=== PATIENT | female | born 1935 | race Caucasian/White ===

== ENCOUNTER 2017-03-24 13:42 | Inpatient (IN) ==
[2017-03-24] MEDS ORDERED: DUONEB NEB STA (14:08)
[2017-03-24] MEDS ORDERED: SOLU-MEDROL 125 MG IVP STA (14:08)
[2017-03-24] MEDS ORDERED: TYLENOL PO PRN (14:36)
[2017-03-24] MEDS ORDERED: TESSALON PERLES PO PRN (14:36)
[2017-03-24] MEDS ORDERED: TUSSIONEX PO PRN (14:36)
[2017-03-24] MEDS ORDERED: MUCINEX PO PRN (14:36)
[2017-03-24] MEDS ORDERED: ANTIVERT PO PRN (14:36)
[2017-03-24] MEDS ORDERED: BENADRYL PO PRN (14:36)
[2017-03-24] MEDS ORDERED: NON-FORMULARY MEDICATION (Cholecalciferol (Vitamin D3) [Vitamin D3] 5,000 UNIT) PO SCH (14:45)
--- NOTE | 2017-03-24 14:45 | ED.PDOC ---
General ED Provider: Dr. SAVANNA CABRALES Chief Complaint: Shortness of Air Stated Complaint: short of air Time Seen by Physician: 13:49 Mode of Arrival: Ambulance Information Source: Patient, Family, Correction, EMT Exam Limitations: No limitations Primary Care Provider: PAULY HANNAH Referred to ED by: Other (NO PAIN) Nursing and Triage Documentation Reviewed and Agree: Yes Reviewed sepsis parameters & appropriate labs ordered?: Yes (PMD SEEN PT IN ED) System Inflammatory Response Syndrome: Not Applicable Sepsis Protocol: For patient's 13 years and over: Temp is 96.8 and below OR 101 and greater Pulse >90 BPM Resp >20/minute Acutely Altered Mental Status Are patient's symptoms suggestive of a new infection, such as: -Pneumonia -Skin, Soft Tissue -Endocarditis -UTI -Bone, Joint Infection -Implantable Device -Acute Abdominal Infection -Wound Infection -Meningitis -Blood Stream Catheter Infection -Unknown System Inflammatory Response Syndrome: Not Applicable Respiratory Complaint Exam - Respiratory Complaint/Exam Onset/Duration: TODAY Symptoms Are: Still present Timing: Intermittent Initial Severity: Mild Current Severity: None Location: Nose Character: Reports: Non-productive cough Aggravating: Reports: None Alleviating: Reports: None Associated Signs and Symptoms: Reports: Chills, URI, Nasal congestion History of Healthcare-Acquired Pneumonia: No Related Surgical History: Reports: None Pulmonary Embolism Risk Factors: Bedrest Cardiac Risk Factors: Reports: Diabetes, Hypertension Pseudomonas Risk Factors: Reports: None Tuberculosis Risk Factors: Reports: None Status Asthmaticus Risk Factors: Reports: None Home Oxygen Use: Yes Recent Stress Test: No Recent Echo/LV Function: No Current Antibiotic Use: No Current Asthma Medication Use: No Respiratory Distress: None Inadequate Respiratory Effort: No Dysphagia Present: No Stridor Present: No JVD Present: No Accessory Muscle Use: No Diminished Breath Sounds: Yes Sinus Tenderness: None Grunting Respirations: No Kussmaul Respirations: No Differential Diagnoses: Pneumonia, Bronchitis Non-Traumatic Chest Pain Syncope: EKG Performed Review of Systems - Review Of Systems Constitutional: Reports: Malaise Eyes: Reports: No symptoms Ears, Nose, Mouth, Throat: Reports: No symptoms Respiratory: Reports: Cough, Short of air, Wheezing Cardiac: Reports: No symptoms GI: Reports: No symptoms : Reports: No symptoms Musculoskeletal: Reports: No symptoms Skin: Reports: No symptoms Neurological: Reports: No symptoms Endocrine: Reports: No symptoms Hematologic/Lymphatic: Reports: No symptoms All Other Systems: Reviewed and Negative Past Medical History - Past Medical History Previously Healthy: Yes Endocrine: Reports: DM 2, Dyslipidemia Cardiovascular: Reports: Hypertension Respiratory: Reports: None Hematological: Reports: None Gastrointestinal: Reports: None Genitourinary: Reports: None Neuro/Psych: Reports: None Musculoskeletal: Reports: None Cancer: Reports: None Last Menstrual Period: menopause - Surgical History General Surgical History: Reports: None - Family History Family History: Reports: None - Social History Smoking Status: Never smoker Hx Substance Use: No Alcohol Screening: None Physical Exam - Physical Exam Appearance: Well-appearing, No pain distress, Well-nourished Eyes: [place], EOMI, Conjunctiva clear ENT: Ears normal, Nose normal, Oropharynx normal Respiratory: Airway patent, Breath sounds diminished, Respirations nonlabored, Rhonchi, Wheezes Cardiovascular: RRR, Pulses normal, No rub, No murmur GI/: Soft, Nontender, No masses, Bowel sounds normal, No Organomegaly Musculoskeletal: Normal strength, ROM intact, No edema, No calf tenderness Skin: Warm, Dry, Normal color Neurological: Sensation intact, Motor intact, Reflexes intact, Cranial nerves intact, Alert, Oriented Psychiatric: Affect appropriate, Mood appropriate Critical Care Note - Critical Care Note Total Time (mins): 0 Course - Course Orders, Labs, Meds: Lab Review 03/24/17 14:07 Puncture Site R rad O2 Saturation 98.0 ABG pH 7.37 ABG pCO2 59.0 H ABG pO2 106.0 H ABG HCO3 34 H ABG Total CO2 36 H ABG Base Excess 9 H Jacob Test + O2 Delivery Device Nc Oxygen Liter Flow 2.00 FiO2 % 28.0 Orders Category Date Time Status ABG DRAW REQUEST Stat CARDIO 03/24/17 14:07 Completed EKG-(ED ONLY) Stat CARDIO 03/24/17 14:07 Completed ED IV/MEDIPORT/POWERPORT .ONCE EMERGENCY 03/24/17 14:08 Active ABG Stat LAB 03/24/17 14:07 Completed BLOOD CULTURE Stat LAB 03/24/17 14:07 Ordered CBC W/ AUTO DIFF Stat LAB 03/24/17 14:25 Received COMPREHENSIVE METABOLIC PANEL Stat LAB 03/24/17 14:25 Received CREATINE KINASE Stat LAB 03/24/17 14:25 Received FLU A/B MOLECULAR Stat LAB 03/24/17 14:08 Uncollected PROCALCITONIN Stat LAB 03/24/17 14:25 Received TROPONIN I Stat LAB 03/24/17 14:25 Received 0.9 % Sodium Chloride [Saline Flush] MEDS 03/24/17 14:08 Active 1 syr IVF PRN PRN Acetaminophen [Tylenol] MEDS 03/24/17 14:36 Ordered 650 mg PO Q4HR PRN Albuterol Sulfate [Proair Hfa] MEDS 03/24/17 15:00 Ordered 2 puff IH Q6H Allopurinol [Zyloprim] MEDS 03/25/17 09:00 Ordered 100 mg PO DAILY Aspirin [Aspirin EC] MEDS 03/25/17 09:00 Ordered 81 mg PO DAILY Atorvastatin Calcium [Lipitor] MEDS 03/24/17 21:00 Ordered 20 mg PO BEDTIME Benzonatate [Tessalon Perles] MEDS 03/24/17 14:36 Ordered 100 mg PO Q8HR PRN Calcitriol [Calcitriol] MEDS 03/25/17 09:00 Ordered 0.25 mcg PO DAILY Cholecalciferol (Vitamin D3) [Vitamin D3] MEDS 03/24/17 14:45 Ordered 5,000 unit PO DIRECTED Clotrimazole/Betamethasone Dip [Lotrisone 15 gm] MEDS 03/24/17 21:00 Ordered 15 gm TP BID Desvenlafaxine Succinate [Pristiq] MEDS 03/25/17 09:00 Ordered 100 mg PO DAILY Diphenhydramine HCl [Benadryl] MEDS 03/24/17 14:36 Ordered 25 mg PO BEDTIME PRN Donepezil HCl [Aricept] MEDS 03/24/17 21:00 Ordered 10 mg PO BEDTIME Gabapentin [Gabapentin] MEDS 03/24/17 15:00 Ordered 400 mg PO TID Guaifenesin [Mucinex] MEDS 03/24/17 14:36 Ordered 600 mg PO Q12HR PRN Hydrocodone/Chlorphen Polis [Tussionex] MEDS 03/24/17 14:36 Ordered 5 ml PO Q12HR PRN Insulin Glargine,Hum.rec.anlog [Lantus Solostar] MEDS 03/25/17 09:00 Ordered 60 unit SQ DAILY Ipratropium/Albuterol Neb [Duoneb] MEDS 03/24/17 14:08 Discontinued 1 vial NEB ONCE STA Levofloxacin [Levaquin] MEDS 03/25/17 06:30 Ordered 500 mg PO QDAC Loratadine [Loratadine] MEDS 03/25/17 09:00 Ordered 10 mg PO DAILY Lorazepam [Ativan] MEDS 03/24/17 21:00 Ordered 0.5 mg PO BID Meclizine HCl [Antivert] MEDS 03/24/17 14:36 Ordered 25 mg PO Q8HR PRN Methylprednisolone Sod Succ/Pf [Solu-Medrol 125 mg] MEDS 03/24/17 14:08 Discontinued 125 mg IVP ONCE STA Metoprolol Tartrate [Lopressor] MEDS 03/24/17 21:00 Ordered 25 mg PO BID Mirtazapine [Remeron] MEDS 03/24/17 21:00 Ordered 30 mg PO BEDTIME Pantoprazole Sodium [Protonix] MEDS 03/25/17 09:00 Ordered 40 mg PO DAILY Pramipexole Di-HCl [Mirapex] MEDS 03/25/17 09:00 Ordered 1 mg PO DAILY Prednisone MEDS 03/25/17 09:00 Ordered 5 mg PO DAILY Medications Generic Name Dose Route Start Last Admin Trade Name Freq PRN Reason Stop Dose Admin Acetaminophen 650 mg 03/24/17 14:36 Tylenol PO Q4HR PRN Fever >101 Sodium Chloride 1 syr 03/24/17 14:08 Saline Flush IVF PRN PRN To flush IV Discontinued Medications Generic Name Dose Route Start Last Admin Trade Name Freq PRN Reason Stop Dose Admin Albuterol/Ipratropium 1 vial 03/24/17 14:08 03/24/17 14:36 Duoneb NEB 03/24/17 14:09 Not Given ONCE STA Methylprednisolone Sodium Succinate 125 mg 03/24/17 14:08 Solu-Medrol 125 Mg IVP 03/24/17 14:09 ONCE STA Vital Signs: Temp Pulse Resp BP Pulse Ox 03/24/17 13:47 97.6 F 73 29 H 151/66 H 95 Departure - Departure Time of Disposition: 14:47 Disposition: HOME SELF-CARE Discharge Problem: Shortness of breath Instructions: Shortness of Breath (ED), Dyspnea (ED) Condition: Good Pt referred to PMD for follow-up: Yes IPMP verified?: No Additional Instructions: Please call your Family Physician as soon as possible to schedule a follow-up appointment. Allergies/Adverse Reactions: Allergies Penicillins Adverse Reaction (Verified 03/24/17 13:59) Sulfa (Sulfonamide Antibiotics) Adverse Reaction (Verified 03/24/17 13:59) Home Medications: Ambulatory Orders Acetaminophen 650 mg PO Q4HR PRN 03/24/17 Albuterol Sulfate [Proair Hfa] 2 puff IH Q6H 03/24/17 Allopurinol 100 mg PO DAILY 03/24/17 Amlodipine Besylate 5 mg PO DAILY 03/24/17 Aspirin [Ecotrin] 81 mg PO DAILY 03/24/17 Atorvastatin Calcium [Lipitor] 20 mg PO BEDTIME 03/24/17 Benzonatate [Tessalon Perle] 100 mg PO Q8HR PRN 03/24/17 Bumetanide 1 mg PO BID 03/24/17 Calcitriol 0.25 mcg PO DAILY 03/24/17 Cholecalciferol (Vitamin D3) [Vitamin D3] 5,000 unit PO DIRECTED 03/24/17 Clotrimazole/Betamethasone Dip [Lotrisone Cream] 15 gm TP BID 03/24/17 Cyanocobalamin (Vitamin B-12) [Cyanocobalamin Injection] 1,000 mcg IJ MONTHLY Desvenlafaxine Succinate [Pristiq] 100 mg PO DAILY 03/24/17 Diphenhydramine HCl [Benadryl] 25 mg PO BEDTIME PRN 03/24/17 Donepezil HCl [Aricept] 10 mg PO BEDTIME 03/24/17 Gabapentin 400 mg PO TID 03/24/17 Guaifenesin [Mucinex] 600 mg PO Q12HR PRN 03/24/17 Hydrocodone/Chlorphen Polis [Tussionex] 5 ml PO Q12HR PRN 03/24/17 Insulin Glargine,Hum.rec.anlog [Lantus Solostar] 60 unit SQ DAILY 03/24/17 Insulin Lispro [Humalog Kwikpen] 10 unit SQ DIRECTED 03/24/17 Insulin Lispro [Humalog Kwikpen] 10 unit SQ INSULIN MORNING 03/24/17 Insulin Lispro [Humalog Kwikpen] 15 unit SQ DIRECTED 03/24/17 Ipratropium/Albuterol Neb [Duoneb] 1 vial NEB RTQ8H 03/24/17 Levofloxacin [Levaquin] 500 mg PO QDAC 03/24/17 Loratadine 10 mg PO DAILY 03/24/17 Lorazepam [Ativan] 0.5 mg PO BID 03/24/17 Meclizine HCl 25 mg PO Q8HR PRN 03/24/17 Metoprolol Tartrate 25 mg PO BID 03/24/17 Mirtazapine [Remeron] 30 mg PO BEDTIME 03/24/17 Pantoprazole Sodium [Protonix] 40 mg PO DAILY 03/24/17 Pramipexole Di-HCl [Mirapex] 1 mg PO DAILY 03/24/17 Prednisone 5 mg PO DAILY 03/24/17 Prednisone 5 mg PO TID 03/24/17 Prednisone [Deltasone] 10 mg PO DAILY 03/24/17 Tramadol HCl [Ultram] 50 mg PO Q8HR PRN 03/24/17
[2017-03-24] MEDS ORDERED: NON-FORMULARY MEDICATION (Gabapentin [Gabapentin] 400 MG) PO SCH (15:00)
--- NOTE | 2017-03-24 15:35 | CT ---
EXAM: CT of the chest without contrast History: Cough. Technique: Multiplanar CT images through the thorax were obtained without the administration of IV c ontrast Findings: Heart is enlarged. Coronary calcifications. Great vessels are unremarkable. No axillary adenopathy. No mediastinal adenopathy. Evaluation for hilar lymph nodes is limited due to lack of contrast administration but no bulky adenopathy is seen. No consolidated pneumonia. No pleural flui d and no pneumothorax. Dependent atelectasis seen at the lung bases. No suspicious lung masses or l lacy nodules. Interlobular septal thickening. Within the visualized upper abdomen, calcified granulomas within the spleen. No acute osseous abnorm alities. Degenerative changes of the thoracic spine and visualized lumbar spine. Impression: 1. Cardiomegaly with mild interstitial edema. 2. No evidence for pneumonia.
[2017-03-24] MEDS: LASIX IVP SCH (16:48)
[2017-03-24] MEDS: NEURONTIN PO SCH ×4 (16:49→20:20)
[2017-03-24] MEDS: XOPENEX 1.25 MG NEB SCH (17:05)
[2017-03-24 17:12] VITALS: BMI 44.3
[2017-03-24] MEDS ORDERED: CALMOSEPTINE OINTMENT TP ONE (17:31)
[2017-03-24] MEDS: LIPITOR PO SCH (20:19)
[2017-03-24] MEDS: ARICEPT PO SCH (20:19)
[2017-03-24] MEDS: LOPRESSOR PO SCH (20:19)
[2017-03-24] MEDS: ATIVAN PO SCH (20:19)
[2017-03-24] MEDS: REMERON PO SCH (20:20)
[2017-03-24] MEDS: LOTRISONE 15 GM TP SCH (20:23)
[2017-03-24] MEDS: HUMULIN R SUBCUT PRN (20:30)
[2017-03-25] MEDS: XOPENEX 1.25 MG NEB SCH ×5 (00:34→22:39)
[2017-03-25] MEDS: PROAIR HFA IH SCH ×5 (00:45→21:14)
[2017-03-25] MEDS: PROTONIX PO SCH (05:32)
[2017-03-25] MEDS: HUMULIN R SUBCUT PRN ×4 (05:33→21:58)
[2017-03-25] MEDS ORDERED: LEVAQUIN PO SCH ×2 (06:30→10:00)
[2017-03-25] MEDS ORDERED: LASIX IVP STA (08:07)
[2017-03-25] MEDS ORDERED: NON-FORMULARY MEDICATION (Desvenlafaxine Succinate [Pristiq] 100 MG) PO SCH (09:00)
[2017-03-25] MEDS ORDERED: NON-FORMULARY MEDICATION (Loratadine [Loratadine] 10 MG) PO SCH (09:00)
[2017-03-25] MEDS ORDERED: INSULIN GLARGINE HUM REC ANLOG 60 UNIT SQ SCH (09:00)
[2017-03-25] MEDS ORDERED: PREDNISONE PO SCH (09:00)
[2017-03-25] MEDS ORDERED: LANTUS SUBCUT SCH (09:00)
[2017-03-25] MEDS: ATIVAN PO SCH ×2 (09:17→21:15)
[2017-03-25] MEDS: ASPIRIN EC PO SCH (09:17)
[2017-03-25] MEDS: CLARITIN PO SCH (09:18)
[2017-03-25] MEDS: NON-FORMULARY MEDICATION (Calcitriol [Calcitriol] 0.25 MCG) PO SCH (09:18)
[2017-03-25] MEDS: LOPRESSOR PO SCH ×2 (09:19→21:15)
[2017-03-25] MEDS: MIRAPEX PO SCH (09:19)
[2017-03-25] MEDS: LOTRISONE 15 GM TP SCH ×2 (09:19→21:14)
[2017-03-25] MEDS: NEURONTIN PO SCH ×6 (09:20→21:15)
[2017-03-25] MEDS: PRISTIQ ER PO SCH (09:20)
[2017-03-25] MEDS: ZYLOPRIM PO SCH (09:21)
[2017-03-25] MEDS: LANTUS SUBCUT SCH (09:23)
--- NOTE | 2017-03-25 09:28 | PCM.PROG ---
Attending Provider: ATTENDING PROVIDER: Dr. PAULY HANNAH This patient is seen with Yeimi Luong, Nurse Practitioner. DATE OF SERVICE: 03/25/17 SUBJECTIVE: This 81 year old WHITE/ F was hospitalized 03/24/17. The patient is lying in bed, alert. She is still somewhat short of breath. She has been recently hospitalized at [facility] for acute respiratory failure. REVIEW OF SYSTEMS: CONSTITUTIONAL: No night sweats. No fatigue, malaise, lethargy. No fever or chills. HEENT: Eyes: No visual changes. No eye pain. No eye discharge. ENT: No runny nose. No epistaxis. No sinus pain. No odynophagia. No congestion. RESPIRATORY: No cough, no congestion. No hemoptysis. Shortness of breath. CARDIOVASCULAR: No angina symptoms. No CHF symptoms. No atypical chest pain for CAD. No palpitations. No orthopnea. Leg edema. GASTROINTESTINAL: No abdominal pain. No nausea or vomiting. No diarrhea or constipation. No hematemesis. No hematochezia. GENITOURINARY: No urgency. No frequency. No dysuria. No hematuria. No obstructive symptoms. No discharge. No pain. No significant abnormal bleeding. MUSCULOSKELETAL: No musculoskeletal pain; no joint swelling. NEUROLOGICAL: Awake, alert, oriented to time, place and person. No headache. No neck pain. No syncope. No seizures. No dizziness. PSYCHIATRIC: Not anxious. No depression. No suicidal thoughts. No homicidal thoughts. SKIN: No rash. No lesions. No wounds. ENDOCRINE: No unexplained weight loss. No weight gain. HEMATOLOGIC/LYMPHATIC: No anemia. No purpura. No petechiae. No prolonged or excessive bleeding. No palpable lymph nodes. PHYSICAL EXAMINATION: GENERAL: The patient is awake, alert and oriented, lying in bed in no distress. VITAL SIGNS: Temperature 97.0 F, Pulse 77, Respiratory Rate 26, BP 114/60, Pulse Ox 97% HEENT: Head normocephalic, atraumatic. Eyes: Extraocular muscles are intact. Pupils are equal, round and reactive to light and accommodation. Ears: No lesions. Nose appeared normal. Throat: No exudate or erythema. NECK: Supple. No JVD, no carotid bruit. No lymphadenopathy or thyromegaly. LUNGS: Diminished breath sounds. Clear to auscultation. Percussion note normal. Chest symmetrical. HEART: S1, S2, no S3. No murmurs. No cyanosis or clubbing. No ascites. Pulses: Dorsalis pedis and posterior tibial pulses +1 to +2 both sides. ABDOMEN: Soft. Non-tender. Bowel sounds active. No CVA tenderness. No mass felt. EXTREMITIES: +1 edema. Full range of motion of all extremities, equal. NEUROLOGIC: No focal deficit. Cranial nerves II through XII are grossly intact. No headache, no double vision or headache. SKIN: Not dry. Intact. Turgor-normal. LYMPHATIC: No palpable lymph nodes/no lymphedema. MUSCULOSKELETAL: Normal joints with no swelling. Muscle tone is normal. LAB REVIEW: 03/25/17 04:30 03/25/17 04:30 03/25/17 04:30: Sodium 140, Potassium 4.8, Chloride 98, Carbon Dioxide 31, Anion Gap 15.8, BUN 52 H, Creatinine 2.46 H, Estimated GFR (MDRD) 19.00, BUN/ Creatinine Ratio 21.13, Glucose 542 H* D, Calcium 8.6, Total Bilirubin < 0.3, AST 11 L, ALT 24, Alkaline Phosphatase 61, Total Protein 5.8, Albumin 2.7 L, Globulin 3.1, Albumin/Globulin Ratio 0.87 03/25/17 04:30: WBC 6.96, RBC 4.02 L, Hgb 9.7 L, Hct 31.4 L, MCV 78.1 L, MCH 24.1 L, MCHC 30.9 L, RDW Coeff of Kwabena 24.4 H, Plt Count 116 L, Immature Gran % ( Auto) 0.6, Neut % (Auto) 93.7, Lymph % (Auto) 4.6 L, Sullivan % (Auto) 1.0, Eos % ( Auto) 0.0, Baso % (Auto) 0.1, Immature Gran # (Auto) 0.0, Neut # 6.5, Lymph # 0.3 L, Sullivan # 0.1 L, Eos # 0.0, Baso # 0.0 ASSESSMENT: COPD EXACERBATION SOB LEG EDEMA CHRONIC KIDNEY DISEASE DM TYPE 2 PLAN: D/C Levaquin D/C Vitamin D Elevate legs Daily weights Solu-Medrol 125 q.12hr Lantus 70 units Extra 20 mg of IV Lasix - one time dose today Plan and coordination of the patient's care discussed in the presence of Sort Supervisor and nurse. CONDITION: Stable SCRIBED BY: MARIA ESTHER SKAGGS Compositor Apprentice scribed while in presence of service performed by Dr. Hannah/Yeimi Luong APRN on 03/25/17 ([id number])
[2017-03-25] MEDS: SOLU-MEDROL 125 MG IVP SCH ×2 (09:48→21:20)
[2017-03-25] MEDS ORDERED: VITAMIN D PO SCH (10:00)
[2017-03-25] MEDS: LASIX IVP SCH (10:51)
[2017-03-25] MEDS: CALMOSEPTINE OINTMENT TP PRN (10:51)
[2017-03-25] MEDS: REMERON PO SCH (21:15)
[2017-03-25] MEDS: LIPITOR PO SCH (21:16)
[2017-03-25] MEDS: ARICEPT PO SCH (21:16)
[2017-03-26] MEDS: PROAIR HFA IH SCH ×2 (00:21→05:44)
[2017-03-26] MEDS: XOPENEX 1.25 MG NEB SCH ×4 (05:00→22:44)
[2017-03-26] MEDS: PROTONIX PO SCH (05:44)
[2017-03-26] MEDS: HUMULIN R SUBCUT PRN ×5 (05:44→20:53)
[2017-03-26] MEDS ORDERED: HUMULIN R SUBCUT ONE (07:52)
[2017-03-26] MEDS ORDERED: BUMEX PO ONE (07:59)
[2017-03-26] MEDS: LOTRISONE 15 GM TP SCH ×2 (08:27→20:58)
[2017-03-26] MEDS: CALMOSEPTINE OINTMENT TP PRN (08:28)
[2017-03-26] MEDS: ATIVAN PO SCH ×2 (08:28→20:54)
[2017-03-26] MEDS: MIRAPEX PO SCH (08:28)
[2017-03-26] MEDS: ZYLOPRIM PO SCH (08:29)
[2017-03-26] MEDS: PRISTIQ ER PO SCH (08:29)
[2017-03-26] MEDS: CLARITIN PO SCH (08:29)
[2017-03-26] MEDS: NEURONTIN PO SCH ×6 (08:29→20:54)
[2017-03-26] MEDS: ASPIRIN EC PO SCH (08:29)
[2017-03-26] MEDS: PREDNISONE PO SCH (08:29)
[2017-03-26] MEDS: LOPRESSOR PO SCH ×2 (08:29→20:54)
[2017-03-26] MEDS: ELIQUIS PO SCH ×3 (08:30→20:54)
[2017-03-26] MEDS: LANTUS SUBCUT SCH (08:32)
[2017-03-26] MEDS: NON-FORMULARY MEDICATION (Calcitriol [Calcitriol] 0.25 MCG) PO SCH (08:45)
--- NOTE | 2017-03-26 09:55 | PCM.PROG ---
Attending Provider: ATTENDING PROVIDER: Dr. PAULY HANNAH DATE OF SERVICE: 03/26/17 SUBJECTIVE: This 81 year old WHITE/ F was hospitalized 03/24/17. The patient is hospitalized with CHF, shortness of breath and bronchitis. Hemoglobin and hematocrit are stable. Edema is better. REVIEW OF SYSTEMS: CONSTITUTIONAL: The patient looks comfortable. No night sweats. No fatigue, malaise, lethargy. No fever or chills. HEENT: Eyes: No visual changes. No eye pain. No eye discharge. ENT: No runny nose. No epistaxis. No sinus pain. No odynophagia. No congestion. RESPIRATORY: No cough, no congestion. No hemoptysis. No shortness of breath. CARDIOVASCULAR: No angina symptoms. No CHF symptoms. No atypical chest pain for CAD. No palpitations. No orthopnea.. GASTROINTESTINAL: No abdominal pain. No nausea or vomiting. No diarrhea or constipation. No hematemesis. No hematochezia. GENITOURINARY: No urgency. No frequency. No dysuria. No hematuria. No obstructive symptoms. No discharge. No pain. No significant abnormal bleeding. MUSCULOSKELETAL: No musculoskeletal pain; no joint swelling. NEUROLOGICAL: Awake, alert, oriented to time, place and person. No headache. No neck pain. No syncope. No seizures. No dizziness. PSYCHIATRIC: Not anxious. No depression. No suicidal thoughts. No homicidal thoughts. SKIN: No rash. No lesions. No wounds. ENDOCRINE: No unexplained weight loss. No weight gain. HEMATOLOGIC/LYMPHATIC: No anemia. No purpura. No petechiae. No prolonged or excessive bleeding. No palpable lymph nodes. PHYSICAL EXAMINATION: GENERAL: The patient is awake, alert and oriented, lying in bed in no distress. VITAL SIGNS: Temperature 98.3 F, Pulse 89, Respiratory Rate 24, BP 139/52, Pulse Ox 2% HEENT: Head normocephalic, atraumatic. Eyes: Extraocular muscles are intact. Pupils are equal, round and reactive to light and accommodation. Ears: No lesions. Nose appeared normal. Throat: No exudate or erythema. NECK: Supple. No JVD, no carotid bruit. No lymphadenopathy or thyromegaly. LUNGS: Decreased breath sounds with few creps. Clear to auscultation. Percussion note normal. Chest symmetrical. HEART: S1, S2, no S3. No murmurs. No cyanosis or clubbing. No ascites. Pulses: Dorsalis pedis and posterior tibial pulses +1 to +2 both sides. ABDOMEN: Soft. Non-tender. Bowel sounds active. No CVA tenderness. No mass felt. EXTREMITIES: Trace to 1+ pitting edema. Full range of motion of all extremities, equal. NEUROLOGIC: No focal deficit. Cranial nerves II through XII are grossly intact. No headache, no double vision or headache. SKIN: Warm and dry. Intact. Turgor-normal. LYMPHATIC: No palpable lymph nodes/no lymphedema. MUSCULOSKELETAL: Normal joints with no swelling. Muscle tone is normal. LAB REVIEW: 03/26/17 04:30 03/26/17 04:30 03/26/17 04:30: Sodium 138, Potassium 4.2, Chloride 94 L, Carbon Dioxide 29, Anion Gap 19.2, BUN 62 H*, Creatinine 2.23 H, Estimated GFR (MDRD) 21.00, BUN/ Creatinine Ratio 27.80, Glucose 583 H* D, Calcium 8.8, Total Bilirubin < 0.3, AST 11 L, ALT 24, Alkaline Phosphatase 60, Total Protein 5.8, Albumin 2.7 L, Globulin 3.1, Albumin/Globulin Ratio 0.87 03/26/17 04:30: WBC 11.54 H, RBC 3.94 L, Hgb 9.7 L, Hct 30.3 L, MCV 76.9 L, MCH 24.6 L, MCHC 32.0, RDW Coeff of Kwabena 24.5 H, Plt Count 124 L, Immature Gran % ( Auto) 0.6, Neut % (Auto) 94.8, Lymph % (Auto) 3.3 L, [place] % (Auto) 1.2, Eos % ( Auto) 0.0, Baso % (Auto) 0.1, Immature Gran # (Auto) 0.1, Neut # 10.9 H, Lymph # 0.4 L, [place] # 0.1 L, Eos # 0.0, Baso # 0.0 03/25/17 21:20: Glucose 735 H* D ASSESSMENT: 1. Leg edema. Edema is better. 2. Diabetes mellitus, Type 2. Blood sugar is more than 500 likely from steroid effect. Lantus dose has been increased. The patient is already on sliding scale coverage for sugar over 500. Will go up to 20 units. BUN has gone up from aggressive diuretic therapy and will back off. Will give Bumex as before. 3. COPD exacerbation 4. Chronic kidney disease PLAN: 1. Will restart Eliquis 2.5 mg p.o. b.i.d. for DVT prevention as she is an ideal setup for it and was started at one of the [facility] 2. Regular insulin 10 mg now on top of sliding scale; give 20 units if anything over 500 3. PT/OT evaluation 4. Start Bumex 1 mg b.i.d. as before. 5. D/C Solu-Medrol 6. Start Prednisone 20 mg p.o. daily Plan and coordination of the patient's care discussed in the presence of Cvor Nurse and nurse. CONDITION: Stable SCRIBED BY: MARIA ESTHER SKAGGS Vending Machine Technician scribed while in presence of service performed by Dr. PAULY HANNAH on 03/26/17 ([id number])
[2017-03-26] MEDS ORDERED: PROAIR HFA IH PRN (10:30)
--- NOTE | 2017-03-26 11:12 | PN ---
DATE OF SERVICE: 03/25/17 SUBJECTIVE: The patient was hospitalized with chronic cough and chronic bronchitis type of symptoms with history of CHF. The chest x-ray showed the early pulmonary edema type of picture. Her condition is stable. She was given Lasix 20mg. She says that she is breathing better. Her legs will be elevated and she will be given steroid dose Q 8 hours and NEBS treatments. CONDITION: Stable PLAN: 1. We will get the report of the echo, If I can remember the ejection fraction was low. The echo was done at one of the [facility] The patient was seen and examined with Nurse Practitioner. TIME SPENT: More than 30 minutes. Plan and coordination of the patient's care discussed in the presence of nurse. JOSE
--- NOTE | 2017-03-26 11:13 | RS.PTINEVL ---
Subjective - Patient information Date of Evaluation: 03/26/17 Date of Arrival on Unit: 03/24/17 Admitted From:: [facility] Diagnosis: COPD, LE edema Usual Living Arrangement: [facility] Living Arrangement Comments: prior to admit pt had been at [facility] for rehab, prior to that pt lived with dtr with ramp to enter/exit home. pt amb with rwx short distances independently Home Environment: Level/No stairs Medical History: Hypertension, COPD, Diabetes, Arthritis Medical History Comments:: kidney disease LATEX ALLERGY?: No Surgical History Comments:: ankle sx, CTR Medications: see chart Subjective Information/ Patient Comments:: pt states that she is expecting company later today. - Level of function Prior to this admission, the patient could do the following:: Partially Dependent Ambulation Current Level of Function: Partially Dependent Current Equipment Used at Home: oxygen at 2L [place], walker, wheelchair, shower chair, hospital bed, glucometer Interventions - Objective Patient Orientation: Person, Place, Situation Current Interventions: IV's, Oxygen, Telemetry Range of Motion - ROM Left Upper Extremity AROM: WFL's Right Lower Extremity AROM: WFL's Left Lower Extremity AROM: WFL's Muscle Strength - Muscle Strength Right Upper Extremity Strength: Mild Weakness (shld flex 4-/5, elbow flex/ext 4/ 5) Left Upper Extremity Strength: Mild Weakness (shld flex 4-/5, elbow flex/ext 4/5 ) Right Lower Extremity Strength: Mild Weakness (hip flex 3+/5, knee flex/ext 4-/5 , ankle Df/PF 4-/5) Left Lower Extremity Strength: Mild Weakness (hip flex 3+/5, knee flex/ext 4-/5 , ankle Df/PF 4-/5) Sensation - Sensation Right Upper Extremity Sensation: Intact/Normal Left Upper Extremity Sensation: Intact/Normal Right Lower Extremity Sensation: Impaired Left Lower Extremity Sensation: Impaired Comments: n/t BLE Palpation Palpation Findings: None/Normal Balance - Sitting Balance and Reactions Static Sitting Balance: Fair Dynamic Sitting Balance: Fair Sitting Equilibrium Reactions: Delayed Left, Delayed Right Sitting Protective Reactions: Delayed Left, Delayed Right - Standing Balance and Reactions Static Standing Balance: Poor Dynamic Standing Balance: Poor Standing Equilibrium Reactions: Delayed Left, Delayed Right Standing Protective Reactions: Delayed Left, Delayed Right - Comments Balance Assessment Comments: pt with increased lat sway Functional Mobility - Bed Mobility Rolling R/L: Min Assist Sit to Supine: Min Assist - Transfers Sit to Stand: Min Assist Stand to Sit: Min Assist - Safety Awareness Safety Awareness: Poor Ambulation - Ambulation Assistive Device Used: Rolling Walker Orthotic/Prosthetic Device: No Distance: 50ft +70ft Assistance needed with Ambulation: CGA, Min Assist, 1 person assist Quality of Ambulation: pt amb with CGA to min x 1 +1 to bring chair and O2 tank behind patient Gait Deviations: Forward posture, Short stride, Deviates from path Ambulation Comments: pt amb with decreased step length, flexed posture, pt does not follow commands for safety to push up from chair, or wait to stand until chair locked Factors Affecting Ambulation: Decreased Balance, Breathing/O2 Saturation, Decreased Safety, Cognitive Status, Limited Endurance Treatment time - Time with patient Total treatment time: 27 Patient Education - Education Patient Education: Home Exercise Program, Education of Plan of Care Teaching Recipient: Patient Teaching Methods: Discussion Comments: Discussion with patient regarding POC as well as safety with gait Assessment - Assessment Problem List:: Decreased level of function, Requires training/education, Decreased safety/Risk of falls, Weakness Rehab Potential: Good Further Therapy Indicated?: Yes Evaluation Complexity: HISTORY: Medium (COPD, DM, kidney dz), EXAM OF BODY SYSTEMS: Medium (musc, neuomus, resp), CLINICAL PRESENTATION: Medium (evolving) , CLINICAL DECISION MAKING: Medium Short Term Goals GOAL #1: pt demonstrate independence with bed mobility Goal to be met by: 03/28/17 GOAL #2: Transfer sup to/from sit to/from stand CGA Goal to be met by: 03/28/17 GOAL #3: pt amb with rwx 100ft with no LOB and no rest periods Goal to be met by: 03/28/17 Penitentiary Goals GOAL #1: pt transfer sup to/from sit to/from stand SBA Goal to be met by: 04/01/17 GOAL #2: pt amb 150ft with rwx with no LOB with no rest periods Goal to be met by: 04/01/17 GOAL #3: Improved BLE strength 4 to 4+/5 and independent with HEP Goal to be met by: 04/01/17 Plan Plan of Care: Therapeutic EX, Therapeutic Activity Other:: gait training Frequency of Treatment: 1-2 X day, as tolerated Duration of Treatment: 6 days Anticipated Discharge Destination: Home Has the Physician been added for Co-signature?: Yes
--- NOTE | 2017-03-26 16:16 | RS.OTINEVL ---
Subjective - Patient information Date of Evaluation: 03/26/17 Date of Arrival on Unit: 03/24/17 Admitted From:: Alf Usual Living Arrangement: [facility] Living Arrangement Comments: prior to admit pt had been at [facility] for rehab, prior to that pt lived with dtr with ramp to enter/exit home. pt amb with rwx short distances independently Home Environment: Level/No stairs Medical History: Hypertension, COPD, Diabetes, Arthritis Medical History Comments:: kidney disease, LATEX ALLERGY?: No Surgical History Comments:: ankle sx, CTR Medications: see chart Subjective Information/ Patient Comments:: "My back hurts across there." - Level of function Prior to this admission, the patient could do the following:: Partially Dependent Ambulation Abilities prior to this admission: She was receiving therapy at [facility] and then got sick and had to come to the hospital. Before the [facility], she was living at home with her daughter. She is maximum assistance for LE dressing, and SBA for shower with a bench. Current Level of Function: Partially Dependent Current Equipment Used at Home: oxygen at 2L N[place], walker, wheelchair, shower chair, hospital bed, glucometer Pain Assessment - Pain Pain Score: 2 Pain Location Body Site: Back Pain Aggravating Factors: ADL's, Standing, Walking Pain Alleviating Factors: Medication, Sitting, Lying Supine Interventions - Objective Patient Orientation: Person, Place, Situation Current Interventions: IV's, Oxygen, Telemetry Observation: Pt is not as SOA today. SOA with activity today. Interventions - ROM Right Upper Extremity AROM: Slight limitation Left Upper Extremity AROM: Slight limitation - Strength Right Upper Extremity Strength: Mild Weakness Left Upper Extremity Strength: Mild Weakness - Sensation Right Upper Extremity Sensation: Intact/Normal Left Upper Extremity Sensation: Intact/Normal Balance - Sitting Balance Static Sitting Balance: Good Dynamic Sitting Balance: Good - Standing Balance Static Standing Balance: Fair Dynamic Standing Balance: Fair ADL Skills - Self Feeding Self Feeding: Independent - Grooming Grooming: CGA - Bathing Bathing UE: CGA Bathing LE: Max Assist - Dressing Dressing UE: Min Assist Dressing LE: Max Assist - Toilet Management Toileting Management: CGA Functional Mobility - Bed Mobility Rolling R/L: CGA Scooting: CGA Supine to Sit: CGA Sit to Supine: Min Assist - Transfers Sit to Stand: CGA Stand to Sit: Min Assist Stand Pivot Transfers: Min Assist Comments:: Pt requires verbal cues to keep her RW close to her. - Safety Awareness Safety Awareness: Good Additional Treatment Performed - Additional units charged ADL: 15 - Time with patient Total treatment time: 45 Activities Patient Interests:: Watching Television, Puzzles/Games, Visiting/Socializing Patient Education Patient Education: Education of diagnosis, Home Safety, Education of Plan of Care Teaching Recipient: Patient Teaching Methods: Discussion Assessment Problem List:: Decreased level of function, Requires training/education, Decreased safety/Risk of falls, Weakness Rehab Potential: Good Further Therapy Indicated?: Yes Evaluation Complexity: HISTORY: Medium, EXAM OF BODY SYSTEMS: Medium, CLINICAL DECISION MAKING: Medium Short Term Goals - Goals GOAL 1: Pt to tolerate 10 minutes of standing activity, rest PRN. Goal to be met by: 04/02/17 GOAL 2: Pt to complete sink level ADLS SBA. Goal to be met by: 04/02/17 GOAL 3: Pt to increase strength to 4+/5 Goal to be met by: 04/02/17 Valve Machine Operator Goals GOAL 1: Pt to tolerate 15 minutes of standing activity, rest PRN. Goal to be met by: 04/07/17 GOAL 2: Pt to complete sink level ADLS Mod-I. Goal to be met by: 04/07/17 GOAL 3: Pt to increase strength to 4+/5 Goal to be met by: 04/07/17 Plan Plan of Care: Therapeutic EX, Neuromuscular Re-Educ, Therapeutic Activity, Self- Care/Home Management Frequency of Treatment: 1-2 X day, as tolerated Duration of Treatment: 2 Weeks Anticipated [facility]charge Destination[facility] Has the Physician been added for Co-signature?: Yes
[2017-03-26] MEDS: BUMEX PO SCH (16:20)
[2017-03-26] MEDS: LIPITOR PO SCH (20:54)
[2017-03-26] MEDS: REMERON PO SCH (20:54)
[2017-03-26] MEDS: ARICEPT PO SCH (20:54)
[2017-03-27] MEDS: BUMEX PO SCH ×2 (05:37→16:39)
[2017-03-27] MEDS: PROTONIX PO SCH (05:38)
[2017-03-27] MEDS: XOPENEX 1.25 MG NEB SCH ×4 (05:48→23:10)
[2017-03-27] MEDS: HUMULIN R SUBCUT PRN ×4 (05:49→20:36)
[2017-03-27] MEDS: ATIVAN PO SCH ×2 (08:36→20:29)
[2017-03-27] MEDS: ASPIRIN EC PO SCH (08:36)
[2017-03-27] MEDS: NON-FORMULARY MEDICATION (Calcitriol [Calcitriol] 0.25 MCG) PO SCH (08:37)
[2017-03-27] MEDS: CLARITIN PO SCH (08:37)
[2017-03-27] MEDS: PRISTIQ ER PO SCH (08:37)
[2017-03-27] MEDS: PREDNISONE PO SCH (08:38)
[2017-03-27] MEDS: ELIQUIS PO SCH ×2 (08:39→20:28)
[2017-03-27] MEDS: MIRAPEX PO SCH (08:42)
[2017-03-27] MEDS: LOPRESSOR PO SCH ×2 (08:42→20:27)
[2017-03-27] MEDS: LOTRISONE 15 GM TP SCH ×2 (08:42→20:31)
[2017-03-27] MEDS: ZYLOPRIM PO SCH (08:43)
[2017-03-27] MEDS: NEURONTIN PO SCH ×6 (08:43→20:30)
[2017-03-27] MEDS: LANTUS SUBCUT SCH (08:44)
[2017-03-27] MEDS: REMERON PO SCH (20:27)
[2017-03-27] MEDS: LIPITOR PO SCH (20:29)
[2017-03-27] MEDS: ARICEPT PO SCH (20:30)
[2017-03-27] MEDS: CALMOSEPTINE OINTMENT TP PRN (20:43)
[2017-03-28] MEDS: PROTONIX PO SCH (05:59)
[2017-03-28] MEDS: BUMEX PO SCH ×2 (05:59→17:13)
[2017-03-28] MEDS: XOPENEX 1.25 MG NEB SCH ×4 (06:00→23:40)
[2017-03-28] MEDS: HUMULIN R SUBCUT PRN ×4 (06:03→20:20)
[2017-03-28] MEDS: LANTUS SUBCUT SCH (08:05)
[2017-03-28] MEDS: ELIQUIS PO SCH ×2 (08:07→20:17)
[2017-03-28] MEDS: ASPIRIN EC PO SCH (08:08)
[2017-03-28] MEDS: ATIVAN PO SCH ×2 (08:08→20:18)
[2017-03-28] MEDS: ZYLOPRIM PO SCH (08:08)
[2017-03-28] MEDS: PRISTIQ ER PO SCH (08:08)
[2017-03-28] MEDS: MIRAPEX PO SCH (08:08)
[2017-03-28] MEDS: LOPRESSOR PO SCH ×2 (08:09→20:18)
[2017-03-28] MEDS: CLARITIN PO SCH (08:09)
[2017-03-28] MEDS: PREDNISONE PO SCH (08:09)
[2017-03-28] MEDS: NEURONTIN PO SCH ×6 (08:09→20:18)
[2017-03-28] MEDS: NON-FORMULARY MEDICATION (Calcitriol [Calcitriol] 0.25 MCG) PO SCH (08:10)
[2017-03-28] MEDS: LOTRISONE 15 GM TP SCH ×2 (08:10→20:35)
[2017-03-28] MEDS ORDERED: LANOXIN IVP STA ×2 (19:18)
[2017-03-28] MEDS ORDERED: CARDIZEM PO ONE (19:19)
[2017-03-28] MEDS ORDERED: CARDIZEM ONE (20:09)
[2017-03-28] MEDS: LIPITOR PO SCH (20:17)
[2017-03-28] MEDS: REMERON PO SCH (20:18)
[2017-03-28] MEDS: ARICEPT PO SCH (20:20)
[2017-03-29] MEDS: XOPENEX 1.25 MG NEB SCH ×2 (05:31→11:07)
[2017-03-29] MEDS: PROTONIX PO SCH (06:02)
[2017-03-29] MEDS: BUMEX PO SCH (06:02)
[2017-03-29] MEDS: HUMULIN R SUBCUT PRN ×2 (06:15→12:11)
--- NOTE | 2017-03-29 08:54 | PCM.PROG ---
Attending Provider: ATTENDING PROVIDER: Dr. PAULY HANNAH This patient is seen with Yeimi Luong, Nurse Practitioner. DATE OF SERVICE: 03/29/17 SUBJECTIVE: This 81 year old WHITE/ F was hospitalized 03/24/17. The patient is lying in bed, alert. Shortness of breath improved. She had an episode of leg weakness this morning. Kidney function is stable. She had an episode of atrial fibrillation last night, rate is now controlled. REVIEW OF SYSTEMS: CONSTITUTIONAL: Weakness. No night sweats. No fatigue, malaise, lethargy. No fever or chills. HEENT: Eyes: No visual changes. No eye pain. Yellow drainage bilaterally. ENT : No runny nose. No epistaxis. No sinus pain. No odynophagia. No congestion. RESPIRATORY: No cough, no congestion. No hemoptysis. Positive for shortness of breath. CARDIOVASCULAR: No angina symptoms. No CHF symptoms. No atypical chest pain for CAD. No palpitations. No orthopnea.. GASTROINTESTINAL: No abdominal pain. No nausea or vomiting. No diarrhea or constipation. No hematemesis. No hematochezia. GENITOURINARY: No urgency. No frequency. No dysuria. No hematuria. No obstructive symptoms. No discharge. No pain. No significant abnormal bleeding. MUSCULOSKELETAL: Leg weakness. NEUROLOGICAL: Awake, alert, oriented to time, place and person. No headache. No neck pain. No syncope. No seizures. No dizziness. PSYCHIATRIC: Not anxious. No depression. No suicidal thoughts. No homicidal thoughts. SKIN: No rash. No lesions. No wounds. ENDOCRINE: No unexplained weight loss. No weight gain. HEMATOLOGIC/LYMPHATIC: No anemia. No purpura. No petechiae. No prolonged or excessive bleeding. No palpable lymph nodes. PHYSICAL EXAMINATION: GENERAL: The patient is awake, alert and oriented, lying in bed in no distress. VITAL SIGNS: Temperature 97.5 F, Pulse 84, Respiratory Rate 20, BP 138/73, Pulse Ox 94% HEENT: Head normocephalic, atraumatic. Eyes: Extraocular muscles are intact. Pupils are equal, round and reactive to light and accommodation. Ears: No lesions. Nose appeared normal. Throat: No exudate or erythema. NECK: Supple. No JVD, no carotid bruit. No lymphadenopathy or thyromegaly. LUNGS: Diminished breath sounds bilaterally. Clear to auscultation. Percussion note normal. Chest symmetrical. HEART: Irregular heart rate. S1, S2, no S3. No murmurs. No cyanosis or clubbing. No ascites. Pulses: Dorsalis pedis and posterior tibial pulses +1 to +2 both sides. ABDOMEN: Soft. Non-tender. Bowel sounds active. No CVA tenderness. No mass felt. EXTREMITIES: Trace leg edema. Full range of motion of all extremities, equal. NEUROLOGIC: No focal deficit. Cranial nerves II through XII are grossly intact. No headache, no double vision or headache. SKIN: Not dry. Intact. Turgor-normal. LYMPHATIC: No palpable lymph nodes/no lymphedema. MUSCULOSKELETAL: Normal joints with no swelling. Muscle tone is normal. LAB REVIEW: 03/29/17 05:11 03/29/17 05:11 03/29/17 05:11: Sodium 145, Potassium 4.0, Chloride 97 L, Carbon Dioxide 36 H, Anion Gap 16.0, BUN 72 H*, Creatinine 2.28 H, Estimated GFR (MDRD) 20.00, BUN/ Creatinine Ratio 31.57, Glucose 223 H, Calcium 9.0, Total Bilirubin 0.3, AST 11 L, ALT 20, Alkaline Phosphatase 57, Total Protein 5.6 L, Albumin 2.7 L, Globulin 2.9, Albumin/Globulin Ratio 0.93 03/29/17 05:11: WBC 5.84, RBC 4.21, Hgb 10.6 L, Hct 33.1 L, MCV 78.6 L, MCH 25.2 L, MCHC 32.0, RDW Coeff of Kwabena 25.7 H, Plt Count 124 L, Immature Gran % ( Auto) 1.2, Neut % (Auto) 72.5, Lymph % (Auto) 16.3, [place] % (Auto) 6.5, Eos % ( Auto) 3.3, Baso % (Auto) 0.2, Immature Gran # (Auto) 0.1, Neut # 4.2, Lymph # 1.0, [place] # 0.4, Eos # 0.2, Baso # 0.0 ASSESSMENT: 1. COPD EXACERBATION 2. SOB, IMPROVED 3. LEG EDEMA 4. CHRONIC KIDNEY DISEASE 5. DM TYPE 2 PLAN: 1. Tobramycin two drops each eye t.i.d. 2. Repeat chest x-ray 3. Elevate legs 4. Cardizem 60 mg b.i.d. 5. Discharge patient back to intermediate Plan and coordination of the patient's care discussed in the presence of Airfield Services Officer and nurse. CONDITION: Stable SCRIBED BY: MARIA ESTHER SKAGGS Flaker Tender scribed while in presence of service performed by Dr. Hannah/Yeimi Luong APRN on 03/29/17 ([id number])
[2017-03-29] MEDS: TOBREX 0.3% OP SCH ×2 (09:11→14:57)
[2017-03-29] MEDS: PRISTIQ ER PO SCH (09:11)
[2017-03-29] MEDS: MIRAPEX PO SCH (09:11)
[2017-03-29] MEDS: PREDNISONE PO SCH (09:12)
[2017-03-29] MEDS: ATIVAN PO SCH (09:12)
[2017-03-29] MEDS: ZYLOPRIM PO SCH (09:12)
[2017-03-29] MEDS: ASPIRIN EC PO SCH (09:12)
[2017-03-29] MEDS: CLARITIN PO SCH (09:12)
[2017-03-29] MEDS: LOPRESSOR PO SCH (09:12)
[2017-03-29] MEDS: NEURONTIN PO SCH ×4 (09:12→14:58)
[2017-03-29] MEDS: LANTUS SUBCUT SCH (09:13)
[2017-03-29] MEDS: NON-FORMULARY MEDICATION (Calcitriol [Calcitriol] 0.25 MCG) PO SCH (09:13)
[2017-03-29] MEDS: ELIQUIS PO SCH (09:13)
[2017-03-29] MEDS: LOTRISONE 15 GM TP SCH (09:14)
--- NOTE | 2017-03-29 11:51 | DI ---
EXAM: Single view of the chest. History: Short of breath Comparison: Chest CT 03/24/2017 Findings: Heart remains enlarged. No definite acute infiltrates. No appreciable pleural fluid and no pneumothorax. No acute osseous abnormalities. Impression: Cardiomegaly without overt pulmonary edema.
--- NOTE | 2017-03-29 14:41 | CM.DICTOOL ---
ADMISSION: 03/24/17 15:48 DISCHARGE: 03/29/17 FINAL DIAGNOSIS COPD EXACERBATION CHF LEG EDEMA CAD HYPERTENSION DM, TYPE 2 DYSLIPIDEMIA CHRONIC RENAL DISEASE ARTHRITIS DEPRESSION ANKLE SURGERY CARPAL TUNNEL REPAIR NEVER SMOKER LAST VITALS Temp Pulse Resp BP Pulse Ox 97 F L 104 H 24 121/63 93 L 03/29/17 10:00 03/29/17 10:00 03/29/17 10:00 03/29/17 10:00 03/29/17 10:00 ACTIVE HOME MEDICATIONS Acetaminophen (Tylenol) 650 mg PO Q4HR PRN PRN Reason: Fever >101 Albuterol Sulfate (Proair Hfa) 2 puff IH Q6HR PRN PRN Reason: Wheezing Allopurinol (Zyloprim) 100 mg PO DAILY [facility] Last Admin: 03/29/17 09:12 Dose: 100 mg Apixaban (Eliquis) 2.5 mg PO BID [facility] Last Admin: 03/29/17 09:13 Dose: 2.5 mg Aspirin (Aspirin Ec) 81 mg PO DAILYWM [facility] Last Admin: 03/29/17 09:12 Dose: 81 mg Atorvastatin Calcium (Lipitor) 20 mg PO BEDTIME [facility] Last Admin: 03/28/17 20:17 Dose: 20 mg Benzonatate (Tessalon Perles) 100 mg PO Q8HR PRN PRN Reason: Cough Bumetanide (Bumex) 1 mg PO BIDAC [facility] Last Admin: 03/29/17 06:02 Dose: 1 mg Calamine/Phenol (Calmoseptine Ointment) 1 applic TP PRN PRN PRN Reason: redness Last Admin: 03/27/17 20:43 Dose: 1 applic Chlorphenir/Hydrocodone Polistirex (Tussionex) 5 ml PO Q12HR PRN PRN Reason: Cough Clotrimazole (Lotrisone 15 Gm) 1 applic TP BID [facility] Last Admin: 03/29/17 09:14 Dose: 1 applic Diphenhydramine HCl (Benadryl) 25 mg PO BEDTIME PRN PRN Reason: sleep Last Admin: 03/24/17 20:20 Dose: 25 mg Donepezil HCl (Aricept) 10 mg PO BEDTIME [facility] Last Admin: 03/28/17 20:20 Dose: 10 mg Gabapentin (Neurontin) 100 mg PO TID [facility] Last Admin: 03/29/17 09:12 Dose: 100 mg Gabapentin (Neurontin) 300 mg PO TID [facility] Last Admin: 03/29/17 09:12 Dose: 300 mg Guaifenesin (Mucinex) 600 mg PO Q12HR PRN PRN Reason: Cough Insulin Glargine (Lantus) 70 unit SUBCUT DAILY [facility] Last Admin: 03/29/17 09:13 Dose: 70 unit Insulin Human Regular (Humulin R) 0 - 20 unit SUBCUT PRN PRN; Protocol PRN Reason: Hyperglycemica Last Admin: 03/29/17 12:11 Dose: 8 unit Iprotropium/Albuterol Neb (Duoneb) 1 vial NEB RTQ8H [facility] Last Admin: 03/24/17 11:07 Dose: 1 vial Loratadine (Claritin) 10 mg PO DAILY [facility] Last Admin: 03/29/17 09:12 Dose: 10 mg Lorazepam (Ativan) 0.5 mg PO BID [facility] Last Admin: 03/29/17 09:12 Dose: 0.5 mg Meclizine HCl (Antivert) 25 mg PO Q8HR PRN PRN Reason: Dizziness Metoprolol Tartrate (Lopressor) 25 mg PO BID [facility] Last Admin: 03/29/17 09:12 Dose: 25 mg Mirtazapine (Remeron) 30 mg PO BEDTIME [facility] Last Admin: 03/28/17 20:18 Dose: 30 mg Non-Formulary Medication (Calcitriol [Calcitriol]) 0.25 mcg PO DAILY [facility] Last Admin: 03/29/17 09:13 Cholecalciferol (Vitamin D3 5,000 unit po as directed Pantoprazole Sodium (Protonix) 40 mg PO QDAC [facility] Last Admin: 03/29/17 06:02 Dose: 40 mg Pramipexole Dihydrochloride (Mirapex) 1 mg PO DAILY [facility] Last Admin: 03/29/17 09:11 Dose: 1 mg Desvenlafaxine Succinate (Pristiq) 100mg po Daily Tramadol HCL (Ultram) 50mg PO Q8HR PRN ALLERGIES Penicillins Adverse Reaction (Verified 03/24/17 13:59) Sulfa (Sulfonamide Antibiotics) Adverse Reaction (Verified 03/24/17 13:59) SMOKING: N/A DISEASE SPECIFIC EDUCATION: MEDICATIONS DIET ACTIVITY LEGS ELEVATED LAB REVIEW: 03/29/17 05:11 03/29/17 05:11 03/29/17 05:11: Sodium 145, Potassium 4.0, Chloride 97 L, Carbon Dioxide 36 H, Anion Gap 16.0, BUN 72 H*, Creatinine 2.28 H, Estimated GFR (MDRD) 20.00, BUN/ Creatinine Ratio 31.57, Glucose 223 H, Calcium 9.0, Total Bilirubin 0.3, AST 11 L, ALT 20, Alkaline Phosphatase 57, Total Protein 5.6 L, Albumin 2.7 L, Globulin 2.9, Albumin/Globulin Ratio 0.93 03/29/17 05:11: WBC 5.84, RBC 4.21, Hgb 10.6 L, Hct 33.1 L, MCV 78.6 L, MCH 25.2 L, MCHC 32.0, RDW Coeff of Kwabena 25.7 H, Plt Count 124 L, Immature Gran % ( Auto) 1.2, Neut % (Auto) 72.5, Lymph % (Auto) 16.3, [place] % (Auto) 6.5, Eos % ( Auto) 3.3, Baso % (Auto) 0.2, Immature Gran # (Auto) 0.1, Neut # 4.2, Lymph # 1.0, [place] # 0.4, Eos # 0.2, Baso # 0.0 PLAN: [facility]URN [facility] CONTINUE HOME MEDICATIONS PER NURSING SHEET EXCEPT: 1. DISCONTINUE NORVASC 2. DISCONTINUE HUMALOG KWIKPEN 3. DISCONTINUE LEVAQUIN 4. DISCONTINUE PREDNISONE - FOLLOW NEW ORDERS FOR PREDNISONE NEW MEDICATIONS: 1. CARDIZEM 60MG TAKE 1 TABLET 2 TIMES A DAY. 2. PREDNISONE 20MG TAKE 1 TABLET BY MOUTH DAILY FOR 5 DAYS THEN 10MG DAILY FOR 5 DAYS THEN DISCONTINUE. 3. ELIQUIS 2.5MG TAKE 1 TABLET 2 TIMES A DAY 4. HUMULIN R INSULIN PER DR. HANNAH'S SSI TID 5. TOBRAMYCIN DROPS 2 DROPS TO BOTH EYES TID PT/OT TO EVALUATE AND TREAT DIET CONSISTENT CARB, REGULAR TEXTURE AND REGULAR LIQUIDS. ACTIVITY PER PT/OT; USE PRECAUTION IS AT RISK FOR FALLS; CBC AND CMP IN 1 WEEK THEN EVERY 3 MONTHS. LIPIDS, TSH, T4 AND HGBA1C EVERY 6 MONTHS. PATIENT IS A FULL CODE SITTING UP IN BED. ALERT AND ORIENTED X 4. VOICE IS COARSE. Franc BRAUN HEALTH ASSOCIATE INTO SEE PATIENT. PATIENT C/O SWELLING INSIDE EARS. Franc BRAUN EXAMINED INSIDE EARS AND STATES NO SWELLING NOTED. PLAN OF CARE DISCUSSED PER Franc BRAUN APRN. PATIENT VERBALIZES UNDERSTANDING AND AGREEMENT. APPETITE IS GOOD. Franc BRAUN DISCUSSED PATIENT STATUS WITH DR. HANNAH WITH POSSIBLE PLANS TO DISCHARGE BACK TO [facility] IF CHEST X-RAY IMPROVED. ALSO DISCUSSED EYES PUFFY WITH SLIGHT DRAINAGE NOTED AND ORDER FOR TOBRAMYCIN. DR. HANNAH IN AGREEMENT. VITAL SIGNS ARE STABLE. HEART RATE TACHY AT TIMES. IS AFEBRILE. POX 94% ON O2 AT 2L/C. HEART TONES ARE IRREGULAR WITH TELEMETRY REVEALING A-FIB WITH RVR. NO C/O CHEST PAIN OR DISCOMFORT. LUNGS WITH WHEEZING WHICH HAS IMPROVED. BREATH SOUNDS ARE DIMINISHED. HAS OCC. PRODUCTIVE COUGH. UNSURE OF COLOR OF SPUTUM. IS UNABLE TO LIE FLAT DUE TO DYSPNEA. HAS DYSPNEA WITH ACTIVITY AND AT TIMES AT REST. ABDOMEN IS SOFT, NON-TENDER WITH BOWEL SOUNDS POSITIVE IN ALL 4 QUADS. LAST BM . PEDAL PULSES POSITIVE WITH 1+ PITTING EDEMA. IS A FALL RISK WITH FALL PRECAUTIONS IN USE. IS 1 PERSON ASSIST WITH USE OF ROLLING WALKER. THIS AM NURSE AMBULATING PATIENT TO BATHROOM WHEN PATIENT'S LEGS "GAVE AWAY". NURSE ASSISTED PATIENT TO FLOOR. NO INJURIES NOTED. NO ACUTE DISTRESS NOTED. DR. PAULY HANNAH MD Franc BRAUN APRN
[2017-03-29 15:11] VITALS: BP 140/76; TEMP 97.5
--- NOTE | 2017-03-29 16:18 | RS.OTQKDC ---
OT Discharge Date of Discharge: 03/29/17 Number of Visits: 2 Reason for Discharge: Pt discharged to [facility] facility for rehab.
--- NOTE | 2017-03-30 10:35 | PN ---
DATE OF SERVICE: 03/27/17 SUBJECTIVE: 81-year-old white female hospitalized with shortness of breath, COPD, and leg edema. The patient had evidence of CHF. At the present time, the patient seems to be feeling better. She says she is feeling better. No orthopnea, no PND. REVIEW OF SYSTEMS: CONSTITUTIONAL: No night sweats. No fatigue, malaise, lethargy. No fever or chills. HEENT: Eyes: No visual changes. No eye pain. No eye discharge. ENT: No runny nose. No epistaxis. No sinus pain. No sore throat. No odynophagia. No congestion. RESPIRATORY: No cough, no congestion. No hemoptysis. Less shortness of breath at rest. CARDIOVASCULAR: No angina symptoms. No CHF symptoms. No atypical chest pain for CAD. No palpitations. No orthopnea. GASTROINTESTINAL: Appetite improving. No abdominal pain. No nausea or vomiting. No diarrhea or constipation. No hematemesis. No hematochezia. GENITOURINARY: No urgency. No frequency. No dysuria. No hematuria. No obstructive symptoms. No discharge. No pain. No significant abnormal bleeding. MUSCULOSKELETAL: No musculoskeletal pain; no joint swelling. NEUROLOGICAL: No headache. No neck pain. No syncope. No seizures. No dizziness. PSYCHIATRIC: Not anxious. No depression. No suicidal thoughts. No homicidal thoughts. SKIN: No rash. No lesions. No wounds. ENDOCRINE: No unexplained weight loss. No weight gain. HEMATOLOGIC/LYMPHATIC: No anemia. No purpura. No petechiae. No prolonged or excessive bleeding. No palpable lymph nodes. PHYSICAL EXAMINATION: GENERAL: The patient is oriented to time, place and person. VITAL SIGNS: Temperature 97, pulse 110, respiratory rate 22, BP 124/68, pulse ox 93%. HEENT: Head normocephalic, atraumatic. Eyes: Extraocular muscles are intact. Pupils are equal, round and reactive to light and accommodation. Ears: No lesions. Nose appeared normal. Throat: No exudate or erythema. NECK: Supple. No JVD, no carotid bruit. No lymphadenopathy or thyromegaly. LUNGS: Decreased breath sounds but clear to auscultation. Percussion note normal. Chest symmetrical. HEART: S1, S2, no S3. No murmurs. No cyanosis or clubbing. No ascites. Pulses: Dorsalis pedis and posterior tibial pulses +1 to +2 both sides. ABDOMEN: Soft. Nontender. Bowel sounds active. No CVA tenderness. No mass felt. EXTREMITIES: No edema. Full range of motion of all extremities, equal. NEUROLOGIC: No focal deficit. Cranial nerves II through XII are grossly intact. No headache, no double vision or headache. SKIN: Not dry. Intact. Turgor - normal. LYMPHATIC: No palpable lymph nodes/no lymphedema. MUSCULOSKELETAL: Normal joints with no swelling. Muscle tone is normal. The patient has atrial fib now with rate of 210/min. She is already on Eliquis. LABS: Not done today, will do tomorrow. Kidney function needs to be monitored. Blood sugar is also running somewhat high. The patient has been off IV Solu-Cortef, now on p.o. Prednisone. ASSESSMENT: 1. CHF seems to be under control, Stage III to IV. 2. Leg edema, +1 now, somewhat less than before. 3. Renal azotemia, is a combination of CHF with aggressive diuretic therapy. 4. Diabetes mellitus seems to be out of control from steroid therapy. The patient is already on regular insulin that she takes, Lantus 70 units in the evening along with sliding scale with coverage. PLAN: 1. Daily CBC, CMP 2. Elevate the legs Condition is improving. The patient is able to walk and walks to the bathroom. TIME SPENT: More than 30 minutes. Plan and coordination of the patient's care discussed in the presence of nurse. JOSE
--- NOTE | 2017-03-30 10:44 | OP ---
DATE OF SERVICE: 03/28/17 SUBJECTIVE: This 81-year-old white female hospitalized with CHF, COPD, acute asthmatic bronchitis. The patient's condition has improved. She is sitting up in the chair very comfortable. According to her, her breathing is much better. She is walking with a walker, still gets short of breath on minimal exertion. REVIEW OF SYSTEMS: CONSTITUTIONAL: No night sweats. No fatigue, malaise, lethargy. No fever or chills. HEENT: Eyes: No visual changes. No eye pain. No eye discharge. ENT: No runny nose. No epistaxis. No sinus pain. No sore throat. No odynophagia. No congestion. RESPIRATORY: Mild cough, no congestion. No hemoptysis. Shortness of breath on exertion as usual. CARDIOVASCULAR: No angina symptoms. No CHF symptoms. No atypical chest pain for CAD. No palpitations. No PND. No orthopnea. GASTROINTESTINAL: No abdominal pain. No nausea or vomiting. No diarrhea or constipation. No hematemesis. No hematochezia. GENITOURINARY: No urgency. No frequency. No dysuria. No hematuria. No obstructive symptoms. No discharge. No pain. No significant abnormal bleeding. MUSCULOSKELETAL: No musculoskeletal pain; no joint swelling. NEUROLOGICAL: No headache. No neck pain. No syncope. No seizures. No dizziness. PSYCHIATRIC: Not anxious. No depression. No suicidal thoughts. No homicidal thoughts. SKIN: No rash. No lesions. No wounds. ENDOCRINE: No unexplained weight loss. No weight gain. HEMATOLOGIC/LYMPHATIC: No anemia. No purpura. No petechiae. No prolonged or excessive bleeding. No palpable lymph nodes. PHYSICAL EXAMINATION: VITAL SIGNS: Temperature 98.5, pulse 100/min, respiratory rate 12, BP 144/82, pulse ox 96%. HEENT: Head normocephalic, atraumatic. Eyes: Extraocular muscles are intact. Pupils are equal, round and reactive to light and accommodation. Ears: No lesions. Nose appeared normal. Throat: No exudate or erythema. NECK: Supple. No JVD, no carotid bruit. No lymphadenopathy or thyromegaly. LUNGS: Decreased breath sounds but clear to auscultation. Percussion note normal. Chest symmetrical. HEART: S1, S2, no S3. No murmurs. No cyanosis or clubbing. No ascites. Pulses: Dorsalis pedis and posterior tibial pulses +1 to +2 both sides. ABDOMEN: Soft. Nontender. Bowel sounds active. No CVA tenderness. No mass felt. EXTREMITIES: No edema. Full range of motion of all extremities, equal. NEUROLOGIC: No focal deficit. Cranial nerves II through XII are grossly intact. No headache, no double vision or headache. SKIN: Not dry. Intact. Turgor - normal. LYMPHATIC: No palpable lymph nodes/no lymphedema. MUSCULOSKELETAL: Normal joints with no swelling. Muscle tone is normal. LABS: Hemoglobin 10.2, hematocrit 32, WBC 6,700, normal differential. Creatinine 2.3, BUN 66, potassium 4. ASSESSMENT: 1. CHF SEEMS TO BE RESOLVING 2. CHRONIC BRONCHITIS SEEMS TO BE UNDER CONTROL 3. CHRONIC LUNG DISEASE UNDER CONTROL 4. THE PATIENT IS MORBIDLY OBESE, THAT SEEMS TO BE HER MAIN PROBLEM WITH ABDOMINAL OBESITY. HER BREATHING IS COMPROMISED ALONG WITH ALL THESE MEDICAL PROBLEMS. PLAN: She is advised to lose weight. Her sugar has been running high which is secondary to steroids. CONDITION: Stable TIME SPENT: More than 30 minutes. Plan and coordination of the patient's care discussed in the presence of nurse. JOSE
--- NOTE | 2017-03-30 10:58 | PN ---
DATE OF SERVICE: 03/29/17 SUBJECTIVE: The patient was hospitalized with CHF, Stage 3/4. The patient also has chronic lung disease. She is morbidly obese with sedentary lifestyle. The patient's condition has improved. She is feeling better, breathing better but still she gets short of breath on minimal exertion. PLAN: 1. Continue all the medicine as before. 2. Elevate the legs. 3. The patient's kidney functions are still abnormal in some way because of balance between chronic end-stage CHF and chronic kidney disease. 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 4. The patient is encouraged to eat mostly protein, cut down on salt intake. CONDITION: Stable. PROGNOSIS: Poor. TIME SPENT: More than 30 minutes. Plan and coordination of the patient's care discussed in the presence of nurse. The patient was seen and examined with the nurse practitioner. JOSE
--- NOTE | 2017-04-13 14:54 | DS ---
DATE OF SERVICE: 03/29/17 FINAL DIAGNOSIS: 1. COPD EXACERBATION 2. CHF 3. LEG EDEMA 4. CAD 5. HYPERTENSION 6. DIABETES MELLITUS TYPE 2 7. DYSLIPIDEMIA 8. CHRONIC RENAL DISEASE 9. ARTHRITIS 10. DEPRESSION 11. ANKLE SURGERY 12. CARPAL TUNNEL REPAIR 13. NEVER SMOKER DISCHARGE V/S: Temperature 97, pulse 104, respiratory rate 24, BP 121/63, pulse ox 93. DISCHARGE INSTRUCTIONS: 1. Return to [facility] 2. Continue home medications per nursing sheet except: a) Discontinue Norvasc b) Discontinue Humalog Kwikpen c) Discontinue Levaquin d) Discontinue Prednisone - follow new orders for Prednisone 3. PT/OT to evaluate and treat 4. CBC, CMP in one week then every 3 months, lipids, TSH, T4 and HGBA1C every 6 months 5. Patient is a full code MEDICATIONS AT DISCHARGE: Tylenol 650 mg p.o. q.4h p.r.n. Proair Hfa two puff IH q.6hr p.r.n. Zyloprim 100 mg p.o. daily ALIS Eliquis 2.5 mg p.o. b.i.d. ALIS Aspirin 81 mg p.o. daily with meal ALIS Lipitor 20 mg p.o. bedtime ALIS Tessalon Perles 100 mg p.o. q.8hr p.r.n. Bumex 1 mg p.o. b.i.d. ALIS Calmoseptine one application TP p.r.n. Tussionex 5 mL p.o. q.12hr p.r.n. cough Lotrisone one application TP b.i.d. ALIS Benadryl 25 mg p.o. bedtime p.r.n. Aricept 10 mg p.o. bedtime ALIS Neurontin 100 mg p.o. t.i.d. ALIS Neurontin 300 mg p.o. t.i.d. ALIS Mucinex 600 mg p.o. q.12hr p.r.n. Lantus 70 unit subcut daily ALIS Humulin R 0-20 unit subcut p.r.n. Duoneb one vial neb RT q.8hr ALIS Claritin 10 mg p.o. daily ALIS Ativan 0.5 mg p.o. b.i.d. ALIS Antivert 25 mg p.o. q.8hr p.r.n. Lopressor 25 mg p.o. b.i.d. ALIS Remeron 30 mg p.o. bedtime ALIS Calcitriol 0.25 mcg p.o. daily ALIS Cholecalciferol (Vitamin D3) 5,000 unit p.o. as directed Protonix 40 mg p.o. q.d a.c. ALIS Mirapex 1 mg p.o. daily ALIS Pristiq 100 mg p.o. daily Tramadol 50 mg p.o. q.8hr p.r.n. NEW PRESCRIPTIONS: Cardizem 60 mg one tablet two times a day Prednisone 20 mg one tablet p.o. daily for 5 days then 10 mg daily for 5 days then discontinue Eliquis 2.5 mg one tablet two times a day Humulin R insulin per Dr. Conroy's SSI t.i.d. Tobramycin drops two drops to both eyes t.i.d. DIET INSTRUCTIONS: Consistent carbs, regular texture and regular liquids ACTIVITY: Per PT/OT; use precaution is at risk for falls SMOKING: N/A DISEASE SPECIFIC EDUCATION: Medications Diet Activity Legs elevated HOSPITAL COURSE: This is an 81-year-old white female with a long history of severe COPD, was recently hospitalized at [facility] with acute respiratory failure following influenza infection. She was discharged to [facility] for physical therapy and rehabilitation due to weakness related to shortness of breath. At the assisted she started complaining of more shortness of breath and subsequently sent here by ambulance. She has a history of Stage IV chronic kidney disease. Chest x -ray revealed some moderate pulmonary edema. She was admitted, started on IV Lasix 40 mg. It was noted that previously she had had some questionable atrial fib/atrial flutter in her previous hospitalization but has had none since. After her respiratory failure resolved while she was in the hospital on telemetry orders it was noticed that her atrial fib returned. We started her on Eliquis 2.5 mg p.o. b.i.d. due to her kidney function. Her leg edema improved after 40 mg of IV Lasix and continuing her Bumex and keeping her legs elevated. We started her on Solu-Medrol 125 mg IV q.8hr as well as Xopenex neb treatments scheduled q.6hr which seemed to help with her shortness of breath and cough. She had previously been on a tapering dose of p.o. Prednisone when she was admitted to [facility]. Her shortness of breath has also seemed to be worsened by anxiety. As she previously had an echo done while she was hospitalized at [facility] less than one month ago, it showed a normal ejection fraction at 55 to 60%. She did have some tricuspid regurg and mitral regurg. Over the course of several days, her breathing has improved. Today, she is no longer wheezing. She has been on p.o. Prednisone for the past two days. There was no pneumonia. She entered the hospital on the 10th day of Levaquin and this was discontinued to no infection in the lungs. We did continue the nebulizer treatments. Her blood pressure has been controlled. She did have a period of atrial fib with RVR where she received Digoxin as a one time dose as well as Cardizem as a one time dose and her rate has since been controlled. Today it is 84. We will discharge her back to the assisted on Cardizem 60 b.i.d. as a precautionary measure along with Eliquis 2.5 mg b.i.d. She will continue on these. We will also send her home on our own tapering dose of Prednisone 20 mg daily for the next 5 days and 10 mg daily for the next 5 days. She is to go back on a low sodium ADA diet. She is instructed to keep her legs elevated. All of her vital signs have been stable. Temperature 97.5, heart rate 84, respirations 20, BP 130/73, pulse ox 94% on 2L. Her kidney function has been up and down. Again, she has a history of severe chronic kidney disease. Today BUN 72 and creatinine 2.28. This is a slight improvement from yesterday. Her hemoglobin is up from admission which was 8.2 on admission; today is 10.6 without a blood transfusion. This is also related to her kidney function. We will follow it up with a CBC, CMP in one week. She is instructed to drink plenty of fluids while at the assisted. We will continue her medications and follow closely. TIME SPENT: More than 60 minutes. JOSE
--- NOTE | 2017-04-22 14:44 | HP ---
DATE OF SERVICE: 03/25/17 (03/24/17 ADMITTED) HISTORY OF PRESENT ILLNESS: This is an 81-year-old white female who is currently a resident of [facility] and has recently come under our care there. She was recently hospitalized at [facility] after having the flu and developing acute respiratory failure. She has a history of severe COPD and is oxygen dependent. She stated that she was experiencing worsening shortness of breath at the intermediate. PAST MEDICAL HISTORY: Recurrent gout Hypertension Dyslipidemia Leg edema CHF B12 deficiency Depression/anxiety Dementia Neuropathy Osteoarthritis Diabetes mellitus type 2 COPD History of vertigo Restless leg syndrome GERD Chronic kidney disease, Stage 4 PAST SURGICAL HISTORY: Appendectomy Cholecystectomy REVIEW OF SYSTEMS: CONSTITUTIONAL: Positive for fatigue, weakness. No night sweats. No malaise, lethargy. No fever or chills. HEENT: Eyes: No visual changes. No eye pain. No eye discharge. ENT: No runny nose. No epistaxis. No sinus pain. No sore throat. No odynophagia. No ear pain. No congestion. RESPIRATORY: Cough. No congestion. No hemoptysis. Positive for shortness of breath. CARDIOVASCULAR: No angina symptoms. No CHF symptoms. No atypical chest pain for CAD. No palpitations. No orthopnea. GASTROINTESTINAL: No abdominal pain. No nausea or vomiting. No diarrhea or constipation. No hematemesis. No hematochezia. GENITOURINARY: No urgency. No frequency. No dysuria. No hematuria. No obstructive symptoms. No discharge. No pain. No significant abnormal bleeding. MUSCULOSKELETAL: No musculoskeletal pain. No joint swelling. No arthritis. NEUROLOGICAL: No headache. No neck pain. No syncope. No seizures. No dizziness. PSYCHIATRIC: Not anxious. No depression. No suicidal thoughts. No homicidal thoughts. SKIN: No rash. No lesions. No wounds. ENDOCRINE: No unexplained weight loss. No weight gain. HEMATOLOGIC/LYMPHATIC: No anemia. No purpura. No petechiae. No prolonged or excessive bleeding. No palpable lymph nodes. PERSONAL/FAMILY/SOCIAL HISTORY: The patient is a nonsmoker. She is currently a resident of [facility], had previously been under the care of Dr. Scott. No alcohol or illicit drug use. MEDICATIONS: (HOME) Ultram 50 mg p.o. q.8hr p.r.n. Tussionex 5 mL p.o. q.12hr p.r.n. Loratadine 10 mg p.o. daily Lotrisone cream 15 gm TP b.i.d. Gabapentin 400 mg p.o. t.i.d. Bumetanide 1 mg p.o. b.i.d. Acetaminophen 650 mg p.o. q.4h p.r.n. Remeron 30 mg p.o. bedtime Tessalon Perle 100 mg p.o. q.8hr p.r.n. Protonix 40 mg p.o. daily Pristiq 100 mg p.o. daily ProAir Hfa two puff IH q.6h Prednisone 5 mg p.o. t.i.d. Prednisone 5 mg p.o. daily Mucinex 600 mg p.o. q.12h p.r.n. Mirapex 1 mg p.o. daily Metoprolol 25 mg p.o. b.i.d. Meclizine 25 mg p.o. q.8hr p.r.n. Lipitor 20 mg p.o. bedtime Levaquin 500 mg p.o. q.d. a.c. Lantus Solostar 60 unit SQ daily Humalog Kwikpen 15 unit SQ as directed Humalog Kwikpen 10 unit SQ as directed\ Deltasone 10 mg p.o. daily Duoneb one vial NEB RT q.8h Vitamin B12 1000 mcg monthly Calcitriol 0.25 mcg p.o. daily Benadryl 25 mg p.o. bedtime p.r.n. Ativan 0.5 mg p.o. b.i.d Aspirin 81 mg p.o. daily Aricept 10 mg p.o. bedtime Amlodipine Besylate 5 mg p.o. daily Allopurinol 100 mg p.o. daily Cholecalciferol 5000 unit p.o. as directed ALLERGIES: PENICILLINS, SULFA PHYSICAL EXAMINATION: VITAL SIGNS: Temperature 97.6, heart rate 73, respirations 29, BP 151/66, pulse ox 95% on 2L. HEENT: Head normocephalic, atraumatic. Eyes: Extraocular muscles are intact. Pupils are equal, round and reactive to light and accommodation. Ears: No lesions. Nose appeared normal. Throat: No exudate or erythema. NECK: Supple. No JVD, no carotid bruit. No lymphadenopathy or thyromegaly. LUNGS: Diminished breath sounds bilaterally with very faint expiratory wheezes. Percussion note normal. Chest symmetrical. HEART: S1, S2, no S3. No murmurs. No cyanosis or clubbing. No ascites. Pulses: Dorsalis pedis and posterior tibial pulses +1 to +2 both sides. ABDOMEN: Soft. Nontender. Bowel sounds active. No CVA tenderness. No mass felt. EXTREMITIES: +2 leg edema. Full range of motion of all extremities, equal. NEUROLOGIC: Alert, oriented times three. No focal deficit. Cranial nerves II through XII are grossly intact. No headache, no double vision or headache. SKIN: Not dry. Intact. Turgor - normal. LYMPHATIC: No palpable lymph nodes/no lymphedema. MUSCULOSKELETAL: Normal joints with no swelling. Muscle tone is normal. ABGs on 2L 02 sat 98, pH 7.37, pc02 59, p02 106, bicarb 34, total co2 36, base excess 9. White count 6.08, hemoglobin 9.3, hematocrit 29.8, platelets 116. Urine is normal. ASSESSMENT: 1. CHRONIC CHF 2. ACUTE COPD EXACERBATION 3. SHORTNESS OF BREATH 4. HYPERTENSION 5. ACUTE ON CHRONIC KIDNEY FAILURE 6. ANEMIA PLAN: 1. Admit to the floor 2. CBC, CMP daily 3. Chest x-ray 4. Routine telemetry orders 5. ADA diet 6. Sliding scale for insulin 7. Hold Metformin due to kidney function 8. Rocephin 1 gm IV daily 9. Solu-Cortef 125 mg IV q.8hr 10. Xopenex neb treatments q.6hr scheduled 11. 02 as needed 12. Test for rapid flu A & B 13. Low sodium diet 14. Elevate the legs 15. Will follow closely TIME SPENT: More than 70 minutes. MTDD
== END 2017-03-29 16:30 | DRG 191 ==
LOC: ED 13:42 → MEDSURG B 15:48
PROVIDERS: ADMIT Internal Medicine; ATTEND Internal Medicine
DX: J44.1 Chronic obstructive pulmonary disease with (acute) exacerbation (principal); N18.4 Chronic kidney disease, stage 4 (severe); E11.65 Type 2 diabetes mellitus with hyperglycemia; R06.02 Shortness of breath; I50.9 Heart failure, unspecified; I48.91 Unspecified atrial fibrillation; I10 Essential (primary) hypertension; I12.9 Hypertensive chronic kidney disease with stage 1 through stage 4 chronic kidney disease, or unspecified chronic kidney disease; E11.22 Type 2 diabetes mellitus with diabetic chronic kidney disease; E66.01 Morbid (severe) obesity due to excess calories; I25.10 Atherosclerotic heart disease of native coronary artery without angina pectoris; F41.9 Anxiety disorder, unspecified; E78.5 Hyperlipidemia, unspecified; M19.90 Unspecified osteoarthritis, unspecified site; R05 Cough; M62.81 Muscle weakness (generalized); Z79.4 Long term (current) use of insulin; Z79.899 Other long term (current) drug therapy; Z99.81 Dependence on supplemental oxygen
CPT/HCPCS: 36415; 80053; 82550; 82803; 82947; 82962; 84145; 84484; 85025; 87040; 87070; 87081; 87502; 93005; 93010; 94640; 96374; 99223; 99232; 99239; 99284

== ENCOUNTER 2017-04-06 15:18 | Inpatient (IN) ==
--- NOTE | 2017-04-06 15:41 | ED.PDOC ---
General ED Provider: Dr. TELMA YOO Chief Complaint: Shortness of Air Stated Complaint: Short of air - worse last niight Time Seen by Physician: 15:35 Mode of Arrival: Ambulance Information Source: Patient Exam Limitations: No limitations Primary Care Provider: PAULY HANNAH Nursing and Triage Documentation Reviewed and Agree: Yes Reviewed sepsis parameters & appropriate labs ordered?: Yes System Inflammatory Response Syndrome: Not Applicable Sepsis Protocol: For patient's 13 years and over: Temp is 96.8 and below OR 101 and greater Pulse >90 BPM Resp >20/minute Acutely Altered Mental Status Are patient's symptoms suggestive of a new infection, such as: -Pneumonia -Skin, Soft Tissue -Endocarditis -UTI -Bone, Joint Infection -Implantable Device -Acute Abdominal Infection -Wound Infection -Meningitis -Blood Stream Catheter Infection -Unknown System Inflammatory Response Syndrome: Not Applicable Respiratory Complaint Exam - Shortness of Air Complaint/Exam Onset/Duration: Short of air; on O2 since NH - increasing several weeks - more last night Symptoms Are: Worse Timing: Constant Initial Severity: Mild Current Severity: Moderate Character: Reports: Dyspnea at rest Aggravating: Reports: Movement Alleviating: Reports: None Associated Signs and Symptoms: Reports: Cough Related History: Reports: Similar episode (O2 chronically) Home Oxygen Use: Yes (1 LPM) Review of Systems - Review Of Systems Constitutional: Reports: Malaise, Weakness Respiratory: Reports: Cough, Short of air All Other Systems: Reviewed and Negative Past Medical History - Past Medical History Previously Healthy: Yes Endocrine: Reports: DM 2, Dyslipidemia Cardiovascular: Reports: Hypertension Respiratory: Reports: None Hematological: Reports: None Gastrointestinal: Reports: None Genitourinary: Reports: None Neuro/Psych: Reports: None Musculoskeletal: Reports: None Cancer: Reports: None Last Menstrual Period: n/a - Surgical History General Surgical History: Reports: None - Family History Family History: Reports: None - Social History Smoking Status: Never smoker Hx Substance Use: No Alcohol Screening: None Physical Exam - Physical Exam Appearance: Ill-appearing Ill-appearing: Moderate Pain Distress: None Eyes: [place], EOMI ENT: Oropharynx normal Neck: Supple Respiratory: Airway patent, Breath sounds diminished, Wheezes (mild) GI/: Soft, Nontender Musculoskeletal: Normal strength, ROM intact, Limited ROM Skin: Warm, Dry, Normal color Neurological: Sensation intact, Motor intact, Alert, Oriented Psychiatric: Affect appropriate, Mood appropriate Interpretation - Radiology Interpretation Radiology Interpretation By: Radiologist Exam Interpreted: Portable CXR (mild pulmonary edema) - Respiratory Clinician Rhythm: Sinus - EKG Interpretation Time of EKG #1: 16:11 Rate: Normal Rhythm: Sinus Ectopy: None ST Segment: Other (non specific T wave changes) Interpretation: No acute changes Physician Notification - Case Discussed Physician Notified: Dr. Hannah Time of Notification: 17:15 (Admission/Plan) Critical Care Note - Critical Care Note Total Time (mins): 45 Course - Course Hematology/Chemistry: 04/06/17 16:05 04/06/17 16:05 Orders, Labs, Meds: Lab Review 04/06/17 04/06/17 04/06/17 15:41 16:05 16:05 WBC 4.88 RBC 3.44 L Hgb 9.0 L Hct 28.5 L MCV 82.8 MCH 26.2 L MCHC 31.6 L RDW Coeff of Kwabena 27.7 H Plt Count 248 Immature Gran % (Auto) 2.0 Neut % (Auto) 74.8 Lymph % (Auto) 15.2 [place] % (Auto) 7.6 Eos % (Auto) 0.2 Baso % (Auto) 0.2 Immature Gran # (Auto) 0.1 Neut # (Auto) 3.7 Lymph # (Auto) 0.7 [place] # (Auto) 0.4 Eos # (Auto) 0.0 Baso # (Auto) 0.0 Puncture Site Lrad O2 Saturation 98.0 ABG pH 7.453 H ABG pCO2 41.9 ABG pO2 95.0 ABG HCO3 29.3 H ABG Total CO2 31 H ABG Base Excess 5 H Jacob Test + O2 Delivery Device Nc Oxygen Liter Flow 1.00 Sodium 140 Potassium 4.6 Chloride 101 Carbon Dioxide 26 Anion Gap 17.6 BUN 75 H* Creatinine 2.49 H Estimated GFR (MDRD) 18.00 BUN/Creatinine Ratio 30.12 Glucose 498 H Calcium 8.3 Total Bilirubin 0.3 AST 17 ALT 29 Alkaline Phosphatase 65 Troponin I 0.0250 B-Natriuretic Peptide Total Protein 5.6 L Albumin 2.7 L Globulin 2.9 Albumin/Globulin Ratio 0.93 Influenza A (Rapid) Influenza B (Rapid) 04/06/17 04/06/17 16:05 16:51 WBC RBC Hgb Hct MCV MCH MCHC RDW Coeff of Kwabena Plt Count Immature Gran % (Auto) Neut % (Auto) Lymph % (Auto) [place] % (Auto) Eos % (Auto) Baso % (Auto) Immature Gran # (Auto) Neut # (Auto) Lymph # (Auto) [place] # (Auto) Eos # (Auto) Baso # (Auto) Puncture Site O2 Saturation ABG pH ABG pCO2 ABG pO2 ABG HCO3 ABG Total CO2 ABG Base Excess Jacob Test O2 Delivery Device Oxygen Liter Flow Sodium Potassium Chloride Carbon Dioxide Anion Gap BUN Creatinine Estimated GFR (MDRD) BUN/Creatinine Ratio Glucose Calcium Total Bilirubin AST ALT Alkaline Phosphatase Troponin I B-Natriuretic Peptide 387 H Total Protein Albumin Globulin Albumin/Globulin Ratio Influenza A (Rapid) Negative by naat Influenza B (Rapid) Negative by naat Orders Category Date Time Status ABG DRAW REQUEST Stat CARDIO 04/06/17 15:44 Completed EKG-(ED ONLY) Stat CARDIO 04/06/17 15:42 Completed EKG-(IP & OP ONLY) DAILY CARDIO 04/07/17 06:00 Ordered EKG-(IP & OP ONLY) DAILY CARDIO 04/08/17 06:00 Ordered NEBULIZER TREATMENT Routine CARDIO 04/06/17 17:48 Active NEBULIZER TREATMENT Stat CARDIO 04/06/17 16:59 Completed OXYGEN Routine CARDIO 04/06/17 17:29 Active ACTIVITY .Complete BR CARE 04/06/17 17:23 Active BLOOD GLUCOSE MONITORING ACCUCHECK Q6H CARE 04/06/17 17:24 Active Rosen [CATHETER INSERTION AND CARE] Q8HR CARE 04/06/17 17:44 Active GIVE HS SNACK 2100 CARE 04/06/17 17:30 Active INTAKE & OUTPUT Q8HR CARE 04/06/17 17:28 Active VITAL SIGNS Q8HR CARE 04/06/17 17:23 Active ADA 1800 VEE. DIET DIETARY 04/06/17 Dinner Ordered HS SNACK DIETARY 04/06/17 Dinner Ordered ABG Stat LAB 04/06/17 15:41 Completed BNP [B-TYPE NATRIURETIC PEPTIDE] Stat LAB 04/06/17 16:05 Completed CBC W/ AUTO DIFF DAILY@0600 LAB 04/07/17 06:00 Ordered CBC W/ AUTO DIFF DAILY@0600 LAB 04/08/17 06:00 Ordered CBC W/ AUTO DIFF Stat LAB 04/06/17 16:05 Completed COMPREHENSIVE METABOLIC PANEL DAILY@0600 LAB 04/07/17 06:00 Ordered COMPREHENSIVE METABOLIC PANEL DAILY@0600 LAB 04/08/17 06:00 Ordered COMPREHENSIVE METABOLIC PANEL Stat LAB 04/06/17 16:05 Completed FLU A/B MOLECULAR Stat LAB 04/06/17 16:51 Completed TROPONIN I Stat LAB 04/06/17 16:05 Completed Acetaminophen [Tylenol] MEDS 04/06/17 17:24 Ordered 650 mg PO Q4H PRN Albuterol Sulfate [Proair Hfa] MEDS 04/06/17 17:32 Ordered 2 puff IH Q6H PRN Allopurinol [Zyloprim] MEDS 04/06/17 18:00 Ordered 100 mg PO DAILY Apixaban [Eliquis] MEDS 04/06/17 21:00 Ordered 2.5 mg PO BID Aspirin [Aspirin EC] MEDS 04/07/17 09:00 Ordered 81 mg PO DAILY Atorvastatin Calcium [Lipitor] MEDS 04/06/17 21:00 Ordered 20 mg PO BEDTIME Benzonatate [Tessalon Perles] MEDS 04/06/17 17:32 Ordered 100 mg PO Q8HR PRN Bumetanide [Bumex] MEDS 04/06/17 21:00 Ordered 1 mg PO BID Calcitriol [Calcitriol] MEDS 04/07/17 09:00 Ordered 0.25 mcg PO DAILY Cholecalciferol (Vitamin D3) [Vitamin D3] MEDS 04/13/17 09:00 Ordered 50,000 unit PO WEEKLY Desvenlafaxine Succinate [Pristiq] MEDS 04/07/17 09:00 Ordered 100 mg PO DAILY Dexamethasone 4 mg/ml Inj [Decadron 4 mg/ml Sdv] MEDS 04/06/17 16:50 Discontinued 4 mg .ROUTE .STK-MED ONE Dexamethasone 4 mg/ml Inj [Decadron 4 mg/ml Sdv] 10 mg MEDS 04/06/17 15:55 Discontinued 0.9 % Sodium Chloride [Sodium Chloride] 50 ml IV ONCE Diltiazem HCl [Cardizem] MEDS 04/06/17 21:00 Ordered 60 mg PO BID Diphenhydramine HCl [Benadryl] MEDS 04/06/17 17:32 Ordered 25 mg PO BEDTIME PRN Donepezil HCl [Aricept] MEDS 04/06/17 21:00 Ordered 10 mg PO BEDTIME Furosemide [Lasix] MEDS 04/06/17 15:54 Discontinued 40 mg IVP ONCE STA Gabapentin [Gabapentin] MEDS 04/06/17 21:00 Ordered 400 mg PO TID Guaifenesin [Mucinex] MEDS 04/06/17 21:00 Ordered 600 mg PO BID Insulin Glargine,Hum.rec.anlog [Lantus] MEDS 04/06/17 21:00 Ordered 70 unit SUBCUT BEDTIME Insulin Regular, Human [Humulin R] MEDS 04/06/17 21:00 Ordered 1 unit SUBCUT ACHS Ipratropium/Albuterol Neb [Duoneb] MEDS 04/06/17 16:57 Discontinued 1 vial NEB ONCE STA Ipratropium/Albuterol Neb [Duoneb] MEDS 04/06/17 22:00 Ordered 1 vial NEB RTQ8H Levalbuterol HCl [Xopenex 1.25 mg] MEDS 04/06/17 17:47 Discontinued 1 vial NEB ONCE STA Levalbuterol HCl [Xopenex 1.25 mg] MEDS 04/06/17 17:47 Ordered 1 vial NEB RTQ6H PRN Loratadine [Loratadine] MEDS 04/07/17 09:00 Ordered 10 mg PO DAILY Lorazepam [Ativan] MEDS 04/06/17 21:00 Ordered 0.5 mg PO BID Meclizine HCl [Antivert] MEDS 04/06/17 17:32 Ordered 25 mg PO Q8H PRN Metoprolol Tartrate [Lopressor] MEDS 04/06/17 21:00 Ordered 25 mg PO BID Mirtazapine [Remeron] MEDS 04/06/17 21:00 Ordered 15 mg PO BEDTIME Omeprazole [Prilosec] MEDS 04/07/17 09:00 Ordered 20 mg PO DAILY Pramipexole Di-HCl [Mirapex] MEDS 04/07/17 09:00 Ordered 1 mg PO DAILY Prednisone MEDS 04/07/17 08:00 Ordered 10 mg PO DAILYWM Sodium Chloride 0.9% [Sodium Chloride] 1,000 ml MEDS 04/06/17 17:30 Ordered IV 40 mls/hr Tobramycin Sulfate Opth 0.3% [Tobrex 0.3%] MEDS 04/06/17 21:00 Ordered 2 drop OP TID Tramadol HCl [Ultram] MEDS 04/06/17 17:32 Ordered 50 mg PO Q8HR PRN RESUSCITATION STATUS Routine OTHERS 04/06/17 17:22 Ordered CHEST, 1V AP ONLY Stat RADS 04/06/17 15:42 Completed Medications Generic Name Dose Route Start Last Admin Trade Name Freq PRN Reason Stop Dose Admin Acetaminophen 650 mg 04/06/17 17:24 Tylenol PO Q4H PRN Mild Pain Albuterol Sulfate 2 puff 04/06/17 17:32 Proair Hfa IH Q6H PRN wheezing Albuterol/Ipratropium 1 vial 04/06/17 22:00 Duoneb NEB RTQ8H ALIS Allopurinol 100 mg 04/06/17 18:00 Zyloprim PO DAILY ALIS Aspirin 81 mg 04/07/17 09:00 Aspirin Ec PO DAILY ALIS Atorvastatin Calcium 20 mg 04/06/17 21:00 Lipitor PO BEDTIME ALIS Benzonatate 100 mg 04/06/17 17:32 Tessalon Perles PO Q8HR PRN Cough Bumetanide 1 mg 04/06/17 21:00 Bumex PO BID ALIS Diltiazem HCl 60 mg 04/06/17 21:00 Cardizem PO BID ALIS Diphenhydramine HCl 25 mg 04/06/17 17:32 Benadryl PO BEDTIME PRN Insomnia Donepezil HCl 10 mg 04/06/17 21:00 Aricept PO BEDTIME ALIS Guaifenesin 600 mg 04/06/17 21:00 Mucinex PO BID ALIS Sodium Chloride 1,000 mls @ 40 mls/hr 04/06/17 17:30 Sodium Chloride IV .Q25H ALIS Insulin Glargine 70 unit 04/06/17 21:00 Lantus SUBCUT BEDTIME ALIS Insulin Human Regular 1 unit 04/06/17 21:00 Humulin R SUBCUT ACHS ALIS Levalbuterol HCl 1 vial 04/06/17 17:47 Xopenex 1.25 Mg NEB RTQ6H PRN Wheezing Lorazepam 0.5 mg 04/06/17 21:00 Ativan PO BID ALIS Meclizine HCl 25 mg 04/06/17 17:32 Antivert PO Q8H PRN Vertigo Metoprolol Tartrate 25 mg 04/06/17 21:00 Lopressor PO BID [facility] Mirtazapine 15 mg 04/06/17 21:00 Remeron PO BEDTIME ALIS Non-Formulary Medication 2.5 mg 04/06/17 21:00 Apixaban [Eliquis] PO BID ALIS Non-Formulary Medication 0.25 mcg 04/07/17 09:00 Calcitriol [Calcitriol] PO DAILY [facility] Non-Formulary Medication 50,000 unit 04/13/17 09:00 Cholecalciferol (Vitamin D3) [Vitamin D3] PO WEEKLY ALIS Non-Formulary Medication 400 mg 04/06/17 21:00 Gabapentin [Gabapentin] PO TID ALIS Non-Formulary Medication 10 mg 04/07/17 09:00 Loratadine [Loratadine] PO DAILY [facility] Non-Formulary Medication 100 mg 04/07/17 09:00 Desvenlafaxine Succinate [Pristiq] PO DAILY [facility] Omeprazole 20 mg 04/07/17 09:00 Prilosec PO DAILY [facility] Pramipexole Dihydrochloride 1 mg 04/07/17 09:00 Mirapex PO DAILY [facility] Prednisone 10 mg 04/07/17 08:00 Prednisone PO DAILYWM [facility] Tobramycin Sulfate 2 drop 04/06/17 21:00 Tobrex 0.3% OP TID [facility] Tramadol HCl 50 mg 04/06/17 17:32 Ultram PO Q8HR PRN MODERATE PAIN Discontinued Medications Generic Name Dose Route Start Last Admin Trade Name Freq PRN Reason Stop Dose Admin Albuterol/Ipratropium 1 vial 04/06/17 16:57 04/06/17 17:40 Duoneb NEB 04/06/17 16:58 1 vial ONCE STA Administration Furosemide 40 mg 04/06/17 15:54 04/06/17 17:03 Lasix IVP 04/06/17 15:55 40 mg ONCE STA Administration Dexamethasone Sodium Phosphate 52.5 mls @ 75 mls/hr 04/06/17 15:55 04/06/17 17:04 10 mg/ Sodium Chloride IV 04/06/17 16:36 75 mls/hr ONCE STA Administration Levalbuterol HCl 1 vial 04/06/17 17:47 04/06/17 17:56 Xopenex 1.25 Mg NEB 04/06/17 17:48 Not Given ONCE STA Vital Signs: Temp Pulse Resp BP Pulse Ox 04/06/17 15:26 97.6 F 63 24 156/75 H 93 L Departure - Departure Time of Disposition: 18:00 Disposition: ADMITTED INPATIENT Discharge Problem: CHF (congestive heart failure) Condition: Stable Pt referred to PMD for follow-up: Yes (Follow up with primary care after dischrge) IPMP verified?: No (No narcotic prescribed) Allergies/Adverse Reactions: Allergies Penicillins Adverse Reaction (Verified 04/06/17 15:38) Sulfa (Sulfonamide Antibiotics) Adverse Reaction (Verified 04/06/17 15:38) Home Medications: Ambulatory Orders Acetaminophen 650 mg PO Q4HR PRN 03/24/17 Albuterol Sulfate [Proair Hfa] 2 puff IH Q6H PRN 03/24/17 Allopurinol 100 mg PO DAILY 03/24/17 Aspirin [Ecotrin] 81 mg PO DAILY 03/24/17 Atorvastatin Calcium [Lipitor] 20 mg PO BEDTIME 03/24/17 Benzonatate [Tessalon Perle] 100 mg PO Q8HR PRN 03/24/17 Bumetanide 1 mg PO BID 03/24/17 Calcitriol 0.25 mcg PO DAILY 03/24/17 Cyanocobalamin (Vitamin B-12) [Cyanocobalamin Injection] 1,000 mcg IJ MONTHLY Desvenlafaxine Succinate [Pristiq] 100 mg PO DAILY 03/24/17 Diphenhydramine HCl [Benadryl] 25 mg PO BEDTIME PRN 03/24/17 Donepezil HCl [Aricept] 10 mg PO BEDTIME 03/24/17 Gabapentin 400 mg PO TID 03/24/17 Guaifenesin [Mucinex] 600 mg PO BID 03/24/17 Ipratropium/Albuterol Neb [Duoneb] 1 vial NEB RTQ8H 03/24/17 Loratadine 10 mg PO DAILY 03/24/17 Lorazepam [Ativan] 0.5 mg PO BID 03/24/17 Metoprolol Tartrate 25 mg PO BID 03/24/17 Mirtazapine [Remeron] 15 mg PO BEDTIME 03/24/17 Pramipexole Di-HCl [Mirapex] 1 mg PO DAILY 03/24/17 Tramadol HCl [Ultram] 50 mg PO Q8HR PRN 03/24/17 Apixaban [Eliquis] 2.5 mg PO BID 04/06/17 Cholecalciferol (Vitamin D3) [Vitamin D] 50,000 unit PO WEEKLY 04/06/17 Diltiazem HCl 60 mg PO BID 04/06/17 Insulin Glargine,Hum.rec.anlog [Lantus] 70 unit SUBCUT BEDTIME 04/06/17 Insulin Regular, Human [Humulin R] 1 unit SUBCUT ACHS 04/06/17 Meclizine HCl 25 mg PO Q8H PRN 04/06/17 Omeprazole 20 mg PO DAILY 04/06/17 Prednisone 10 mg PO DAILYWM 04/06/17 Tobramycin Sulfate Opth 0.3% [Tobrex 0.3%] 2 drop OP TID 04/06/17
[2017-04-06] MEDS ORDERED: LASIX IVP STA (15:54)
[2017-04-06] MEDS ORDERED: DECADRON 4 MG/ML SDV 10 MG in SODIUM CHLORIDE 50 ML IV STA (15:55)
--- NOTE | 2017-04-06 16:13 | DI ---
EXAM: Chest one view, frontal view only. HISTORY: Shortness of air. COMPARISON: 03/29/2017. FINDINGS: Heart is enlarged. Vascular congestion seen with interstitial opacities in both lungs. N o pleural effusion or pneumothorax identified. Osseous structures are intact. IMPRESSION: Suspect mild pulmonary edema.
[2017-04-06] MEDS ORDERED: DECADRON 4 MG/ML SDV ONE (16:50)
[2017-04-06] MEDS ORDERED: DUONEB NEB STA (16:57)
[2017-04-06] MEDS ORDERED: TYLENOL PO PRN (17:24)
[2017-04-06] MEDS ORDERED: PROAIR HFA IH PRN (17:32)
[2017-04-06] MEDS ORDERED: BENADRYL PO PRN (17:32)
[2017-04-06] MEDS ORDERED: ANTIVERT PO PRN (17:32)
[2017-04-06] MEDS ORDERED: TESSALON PERLES PO PRN (17:32)
[2017-04-06] MEDS ORDERED: XOPENEX 1.25 MG NEB STA (17:47)
[2017-04-06] MEDS ORDERED: XOPENEX 1.25 MG NEB PRN (17:47)
[2017-04-06] MEDS ORDERED: SOLU-MEDROL 125 MG IVP STA (17:49)
[2017-04-06 20:02] VITALS: BMI 48.9
[2017-04-06] MEDS ORDERED: NON-FORMULARY MEDICATION (Apixaban [Eliquis] 2.5 MG) PO SCH (21:00)
[2017-04-06] MEDS ORDERED: NON-FORMULARY MEDICATION (Gabapentin [Gabapentin] 400 MG) PO SCH (21:00)
[2017-04-06] MEDS ORDERED: HUMULIN R SUBCUT SCH ×2 (21:00)
[2017-04-06] MEDS ORDERED: LOPRESSOR PO SCH (21:00)
[2017-04-06] MEDS ORDERED: CARDIZEM ONE (21:16)
[2017-04-06] MEDS ORDERED: ELIQUIS ONE (21:16)
[2017-04-06] MEDS ORDERED: NEURONTIN ONE (21:16)
[2017-04-06] MEDS ORDERED: HUMULIN R ONE (21:19)
[2017-04-06] MEDS: SODIUM CHLORIDE 1,000 ML IV SCH (21:21)
[2017-04-06] MEDS: LANTUS SUBCUT SCH (21:23)
[2017-04-06] MEDS: TOBREX 0.3% OP SCH (21:24)
[2017-04-06] MEDS: ARICEPT PO SCH (21:24)
[2017-04-06] MEDS: MUCINEX PO SCH (21:25)
[2017-04-06] MEDS: BUMEX PO SCH (21:25)
[2017-04-06] MEDS: ATIVAN PO SCH (21:25)
[2017-04-06] MEDS: ZYLOPRIM PO SCH (21:25)
[2017-04-06] MEDS: LIPITOR PO SCH (21:25)
[2017-04-06] MEDS: CARDIZEM PO SCH (21:26)
[2017-04-06] MEDS: REMERON PO SCH (21:26)
[2017-04-06] MEDS: DUONEB NEB SCH (22:25)
[2017-04-06] MEDS ORDERED: HUMULIN R SUBCUT PRN (22:43)
[2017-04-07] MEDS: DUONEB NEB SCH ×3 (05:17→22:30)
[2017-04-07] MEDS ORDERED: HUMULIN R ONE (06:25)
[2017-04-07] MEDS: HUMULIN R SUBCUT PRN ×3 (06:33→18:40)
[2017-04-07] MEDS ORDERED: HUMULIN R SUBCUT PRN (08:39)
[2017-04-07] MEDS ORDERED: NON-FORMULARY MEDICATION (Loratadine [Loratadine] 10 MG) PO SCH (09:00)
[2017-04-07] MEDS ORDERED: NON-FORMULARY MEDICATION (Desvenlafaxine Succinate [Pristiq] 100 MG) PO SCH (09:00)
[2017-04-07] MEDS: NEURONTIN PO SCH ×6 (09:51→21:05)
[2017-04-07] MEDS: PRISTIQ ER PO SCH (09:51)
[2017-04-07] MEDS: CLARITIN PO SCH (09:52)
[2017-04-07] MEDS: PRILOSEC PO SCH (09:52)
[2017-04-07] MEDS: MUCINEX PO SCH ×2 (09:52→21:05)
[2017-04-07] MEDS: ELIQUIS PO SCH ×2 (09:52→21:05)
[2017-04-07] MEDS: ZYLOPRIM PO SCH (09:52)
[2017-04-07] MEDS: BUMEX PO SCH ×2 (09:52→21:06)
[2017-04-07] MEDS: MIRAPEX PO SCH (09:53)
[2017-04-07] MEDS: CARDIZEM PO SCH ×2 (09:53→21:06)
[2017-04-07] MEDS: PREDNISONE PO SCH (09:53)
[2017-04-07] MEDS: LOPRESSOR PO SCH ×2 (09:53→18:12)
[2017-04-07] MEDS: ASPIRIN EC PO SCH (09:53)
[2017-04-07] MEDS: ATIVAN PO SCH ×2 (09:53→21:13)
[2017-04-07] MEDS: NON-FORMULARY MEDICATION (Calcitriol [Calcitriol] 0.25 MCG) PO SCH (09:54)
[2017-04-07] MEDS: TOBREX 0.3% OP SCH ×3 (09:55→21:04)
[2017-04-07] MEDS: SODIUM CHLORIDE 1,000 ML IV SCH (21:04)
[2017-04-07] MEDS: REMERON PO SCH (21:05)
[2017-04-07] MEDS: LIPITOR PO SCH (21:05)
[2017-04-07] MEDS: ARICEPT PO SCH (21:06)
[2017-04-07] MEDS: LANTUS SUBCUT SCH (21:12)
[2017-04-07] MEDS: ULTRAM PO PRN (21:15)
[2017-04-08] MEDS: DUONEB NEB SCH ×3 (04:35→23:50)
[2017-04-08] MEDS: HUMULIN R SUBCUT PRN ×4 (05:37→22:29)
[2017-04-08] MEDS: PRILOSEC PO SCH (05:38)
[2017-04-08] MEDS: NON-FORMULARY MEDICATION (Calcitriol [Calcitriol] 0.25 MCG) PO SCH (10:13)
[2017-04-08] MEDS: TOBREX 0.3% OP SCH ×3 (10:13→20:17)
[2017-04-08] MEDS: PRISTIQ ER PO SCH (10:14)
[2017-04-08] MEDS: CLARITIN PO SCH (10:14)
[2017-04-08] MEDS: NEURONTIN PO SCH ×6 (10:14→20:18)
[2017-04-08] MEDS: BUMEX PO SCH ×2 (10:14→20:18)
[2017-04-08] MEDS: MIRAPEX PO SCH (10:15)
[2017-04-08] MEDS: PREDNISONE PO SCH (10:15)
[2017-04-08] MEDS: MUCINEX PO SCH ×2 (10:15→20:18)
[2017-04-08] MEDS: CARDIZEM PO SCH ×2 (10:16→20:18)
[2017-04-08] MEDS: LOPRESSOR PO SCH ×2 (10:16→17:06)
[2017-04-08] MEDS: ASPIRIN EC PO SCH (10:16)
[2017-04-08] MEDS: ZYLOPRIM PO SCH (10:16)
[2017-04-08] MEDS: ATIVAN PO SCH ×2 (10:20→20:19)
[2017-04-08] MEDS: ELIQUIS PO SCH ×2 (10:20→20:18)
--- NOTE | 2017-04-08 12:57 | PCM.PROG ---
Attending Provider: ATTENDING PROVIDER: Dr. PAULY HANNAH DATE OF SERVICE: 04/07/17 SUBJECTIVE: This 81 year old WHITE/ F was hospitalized 04/06/17 with acute bronchitis type of symptoms with wheezing. Evidence of CHF by chest x-ray and has chronic CHF. Blood sugar was close to 500 and is not uncommon with her being on steroids. She is insulin dependent diabetic. Breathing seems better, not much wheezing heard. Of note: The patient does not have fever or chills and is able to communicate without any problem. REVIEW OF SYSTEMS: CONSTITUTIONAL: No night sweats. No fatigue, malaise, lethargy. No fever or chills. HEENT: Eyes: No visual changes. No eye pain. No eye discharge. ENT: No runny nose. No epistaxis. No sinus pain. No odynophagia. No congestion. RESPIRATORY: No cough, no congestion. No hemoptysis. No shortness of breath. CARDIOVASCULAR: No angina symptoms. No CHF symptoms. No atypical chest pain for CAD. No palpitations. No orthopnea.. GASTROINTESTINAL: No abdominal pain. No nausea or vomiting. No diarrhea or constipation. No hematemesis. No hematochezia. GENITOURINARY: No urgency. No frequency. No dysuria. No hematuria. No obstructive symptoms. No discharge. No pain. No significant abnormal bleeding. MUSCULOSKELETAL: No musculoskeletal pain; no joint swelling. NEUROLOGICAL: Awake, alert, oriented to time, place and person. No headache. No neck pain. No syncope. No seizures. No dizziness. PSYCHIATRIC: Not anxious. No depression. No suicidal thoughts. No homicidal thoughts. SKIN: No rash. No lesions. No wounds. ENDOCRINE: No unexplained weight loss. No weight gain. HEMATOLOGIC/LYMPHATIC: No anemia. No purpura. No petechiae. No prolonged or excessive bleeding. No palpable lymph nodes. PHYSICAL EXAMINATION: GENERAL: The patient is awake, alert and oriented, lying in bed in no distress. VITAL SIGNS: Temperature 97.7 F, Pulse 59, Respiratory Rate 20, BP 134/59, Pulse Ox 97% HEENT: Head normocephalic, atraumatic. Eyes: Extraocular muscles are intact. Pupils are equal, round and reactive to light and accommodation. Ears: No lesions. Nose appeared normal. Throat: No exudate or erythema. NECK: Supple. No JVD, no carotid bruit. No lymphadenopathy or thyromegaly. LUNGS: Decreased breath sounds. Clear to auscultation. Percussion note normal. Chest symmetrical. HEART: S1, S2, no S3. No murmurs. No cyanosis or clubbing. No ascites. Pulses: Dorsalis pedis and posterior tibial pulses +1 to +2 both sides. ABDOMEN: Soft. Non-tender. Bowel sounds active. No CVA tenderness. No mass felt. EXTREMITIES: Trace to +1 pitting edema. Full range of motion of all extremities , equal. NEUROLOGIC: No focal deficit. Cranial nerves II through XII are grossly intact. No headache, no double vision or headache. SKIN: Warm and dry. Intact. Turgor-normal. LYMPHATIC: No palpable lymph nodes/no lymphedema. MUSCULOSKELETAL: Normal joints with no swelling. Muscle tone is normal. LAB REVIEW: 04/07/17 04:50 04/07/17 04:50 04/07/17 04:50: Sodium 144, Potassium 4.7, Chloride 102, Carbon Dioxide 29, Anion Gap 17.7, BUN 70 H*, Creatinine 2.10 H, Estimated GFR (MDRD) 22.00, BUN/ Creatinine Ratio 33.33, Glucose 329 H D, Calcium 8.4, Total Bilirubin < 0.3, AST 15, ALT 28, Alkaline Phosphatase 61, Total Protein 5.3 L, Albumin 2.6 L, Globulin 2.7, Albumin/Globulin Ratio 0.96 04/07/17 04:50: WBC 4.94, RBC 3.53 L, Hgb 9.1 L, Hct 29.1 L, MCV 82.4, MCH 25.8 L, MCHC 31.3 L, RDW Coeff of Kwabena 27.3 H, Plt Count 269, Immature Gran % (Auto) 2.0, Neut % (Auto) 80.4, Lymph % (Auto) 14.0, [place] % (Auto) 3.4, Eos % (Auto) 0.0, Baso % (Auto) 0.2, Immature Gran # (Auto) 0.1, Neut # (Auto) 4.0, Lymph # ( Auto) 0.7, [place] # (Auto) 0.2 L, Eos # (Auto) 0.0, Baso # (Auto) 0.0 ASSESSMENT: 1. RESPIRATORY STATUS IMPROVED CLINICALLY WITH BRONCHITIS AND/OR CHF. 2. RENAL FAILURE. 3. DIABETES MELLITUS. PLAN: 1. Continue to monitor CBC, CMP 2. Hemoglobin is 9 with hematocrit of 29 3. Will continue to cover with Accu-Cheks and sliding scale 4. For blood sugar over 500, will give 25 units of insulin. The patient is already on Glargine, Lantus 70 at bedtime. 5. Intermittent IV Lasix, is on Bumex. 6. Continue steroids. Plan and coordination of the patient's care discussed in the presence of Sheep Sorter and nurse. CONDITION: Stable SCRIBED BY: MARIA ESTHER SKAGGS Clinical Documentation Developer scribed while in presence of service performed by Dr. PAULY HANNAH on 04/07/17 ([id number])
--- NOTE | 2017-04-08 13:08 | PCM.PROG ---
Attending Provider: ATTENDING PROVIDER: Dr. PAULY HANNAH DATE OF SERVICE: 04/08/17 SUBJECTIVE: This 81 year old WHITE/ F was hospitalized 04/06/17 with CHF, bronchits. The patient has dilated cardiomyopathy, severe chronic lung disease , and CKD. The patient's kidney function is better, wheezing is much less. REVIEW OF SYSTEMS: CONSTITUTIONAL: No night sweats. No fatigue, malaise, lethargy. No fever or chills. HEENT: Eyes: No visual changes. No eye pain. No eye discharge. ENT: No runny nose. No epistaxis. No sinus pain. No odynophagia. No congestion. RESPIRATORY: No cough, no congestion. No hemoptysis. No shortness of breath. CARDIOVASCULAR: No angina symptoms. No CHF symptoms. No atypical chest pain for CAD. No palpitations. No orthopnea.. GASTROINTESTINAL: Appetite is good. No abdominal pain. No nausea or vomiting. No diarrhea or constipation. No hematemesis. No hematochezia. GENITOURINARY: No urgency. No frequency. No dysuria. No hematuria. No obstructive symptoms. No discharge. No pain. No significant abnormal bleeding. MUSCULOSKELETAL: No musculoskeletal pain; no joint swelling. NEUROLOGICAL: Awake, alert, oriented to time, place and person. No headache. No neck pain. No syncope. No seizures. No dizziness. PSYCHIATRIC: Not anxious. No depression. No suicidal thoughts. No homicidal thoughts. SKIN: No rash. No lesions. No wounds. ENDOCRINE: No unexplained weight loss. No weight gain. HEMATOLOGIC/LYMPHATIC: No anemia. No purpura. No petechiae. No prolonged or excessive bleeding. No palpable lymph nodes. PHYSICAL EXAMINATION: GENERAL: The patient is awake, alert and oriented, lying/sitting in bed in no distress. VITAL SIGNS: Temperature 97.6 F, Pulse 65, Respiratory Rate 18, BP 123/55, Pulse Ox 96% HEENT: Head normocephalic, atraumatic. Eyes: Extraocular muscles are intact. Pupils are equal, round and reactive to light and accommodation. Ears: No lesions. Nose appeared normal. Throat: No exudate or erythema. NECK: Supple. No JVD, no carotid bruit. No lymphadenopathy or thyromegaly. LUNGS: Decreased breath sounds. Clear to auscultation. Percussion note normal. Chest symmetrical. HEART: S1, S2, no S3. No murmurs. No cyanosis or clubbing. No ascites. Pulses: Dorsalis pedis and posterior tibial pulses +1 to +2 both sides. ABDOMEN: Soft. Non-tender. Bowel sounds active. No CVA tenderness. No mass felt. EXTREMITIES: No edema. Full range of motion of all extremities, equal. NEUROLOGIC: No focal deficit. Cranial nerves II through XII are grossly intact. No headache, no double vision or headache. SKIN: Warm and dry. Intact. Turgor-normal. LYMPHATIC: No palpable lymph nodes/no lymphedema. MUSCULOSKELETAL: Normal joints with no swelling. Muscle tone is normal. LAB REVIEW: 04/08/17 04:30 04/08/17 04:30 04/08/17 04:30: Sodium 144, Potassium 4.4, Chloride 105, Carbon Dioxide 26, Anion Gap 17.4, BUN 63 H*, Creatinine 1.66 H, Estimated GFR (MDRD) 30.00, BUN/ Creatinine Ratio 37.95, Glucose 122 H D, Calcium 8.7, Total Bilirubin < 0.3, AST 20, ALT 30, Alkaline Phosphatase 64, Total Protein 5.6 L, Albumin 2.6 L, Globulin 3.0, Albumin/Globulin Ratio 0.87 04/08/17 04:30: WBC 7.88, RBC 3.70 L, Hgb 9.4 L, Hct 30.3 L, MCV 81.9, MCH 25.4 L, MCHC 31.0 L, RDW Coeff of [place] 27.7 H, Plt Count 299, Immature Gran % (Auto) 1.6, Neut % (Auto) 78.5, Lymph % (Auto) 12.1, [place] % (Auto) 7.6, Eos % (Auto) 0.1, Baso % (Auto) 0.1, Immature Gran # (Auto) 0.1, Neut # (Auto) 6.2, Lymph # ( Auto) 1.0, [place] # (Auto) 0.6, Eos # (Auto) 0.0, Baso # (Auto) 0.0 ASSESSMENT: 1. SHORTNESS OF BREATH, COMBINATION OF CHRONIC BRONCHITIS AND CHF IMPROVING. 2. EVEN WITH AGGRESSIVE DIURETIC THERAPY KIDNEY FUNCTION IS IMPROVE. PLAN: 1. The rest of medical problems stable with improvement in kidney function. 2. Regular diet with more protein. Plan and coordination of the patient's care discussed in the presence of Community Outreach Director and nurse. CONDITION: STABLE SCRIBED BY: MARIA ESTHER SKAGGS Retouching Operator scribed while in presence of service performed by Dr. PAULY HANNAH on 04/08/17 ([id number])
[2017-04-08] MEDS: SODIUM CHLORIDE 1,000 ML IV SCH (20:17)
[2017-04-08] MEDS: LANTUS SUBCUT SCH (20:17)
[2017-04-08] MEDS: LIPITOR PO SCH (20:18)
[2017-04-08] MEDS: REMERON PO SCH (20:18)
[2017-04-08] MEDS: ARICEPT PO SCH (20:19)
[2017-04-09] MEDS: DUONEB NEB SCH ×4 (04:28→23:27)
[2017-04-09] MEDS: PRILOSEC PO SCH (06:02)
[2017-04-09] MEDS: HUMULIN R SUBCUT PRN ×2 (06:04→17:53)
--- NOTE | 2017-04-09 07:10 | HP ---
DATE OF SERVICE: 04/06/17 REASON FOR HOSPITALIZATION: Shortness of air. HISTORY OF PRESENT ILLNESS: 81-year-old white female, resident of the shelter, hospitalized with shortness of air. The patient had shortness of breath with cough and mild wheezing for the past couple of days. The patient was given nebs treatment to which she seemed to have responded according to the nursing staff at the shelter but now she is more short of breath. The patient was seen and examined in the ER by the ER attending and was noted to have chest x-ray showing possibility of congestive heart failure and also mild bronchitis type of symptoms. The patient has history of refractory CHF. On further workup, she also had creatinine 2.4, BUN 75, which was abnormal and mucosa 498. The patient has been on steroids. The patient is morbidly obese. PERSONAL/FAMILY/SOCIAL HISTORY: The patient is , living in shelter. Nonsmoker. No alcohol abuse. Able to do most activities of daily living except for feeding herself. 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 Albuterol two puffs q.i.d. Allopurinol 100 mg p.o. daily Aspirin 81 mg p.o. daily Lipitor 20 mg p.o. daily Tessalon Perles 100 mg p.o. q.8 Bumex 1 mg p.o. twice a day Pristiq 100 mg p.o. daily Aricept 10 mg at bedtime Gabapentin 400 mg t.i.d. Mucinex 600 mg p.o. twice a day Duoneb one vial q.8 Ativan 0.5 mg twice a day Metoprolol 25 mg twice a day Remeron 15 mg at bedtime Mirapex 1 mg p.o. at h.s. Tramadol p.r.n. for pain Eliquis 2.5 mg twice a day Diltiazem 60 mg twice a day Glargine insulin 70 units at bedtime Regular insulin coverage Omeprazole 20 mg p.o. daily Prednisone 10 mg p.o. daily Tobramycin ophthalmic drops REVIEW OF SYSTEMS: CONSTITUTIONAL: No night sweats. No fatigue, malaise, lethargy. No fever or chills. HEENT: Eyes: No visual changes. No eye pain. No eye discharge. ENT: No runny nose. No epistaxis. No sinus pain. No sore throat. No odynophagia. No congestion. RESPIRATORY: No cough, no congestion. No hemoptysis. No shortness of breath. CARDIOVASCULAR: No angina symptoms. No CHF symptoms. No atypical chest pain for CAD. No palpitations. No orthopnea. GASTROINTESTINAL: No abdominal pain. No nausea or vomiting. No diarrhea or constipation. No hematemesis. No hematochezia. GENITOURINARY: No urgency. No frequency. No dysuria. No hematuria. No obstructive symptoms. No discharge. No pain. No significant abnormal bleeding. MUSCULOSKELETAL: No musculoskeletal pain; no joint swelling. NEUROLOGICAL: The patient was alert, oriented to time place and person. No headache. No neck pain. No syncope. No seizures. No dizziness. PSYCHIATRIC: Not anxious. No depression. No suicidal thoughts. No homicidal thoughts. SKIN: No rash. No lesions. No wounds. ENDOCRINE: No unexplained weight loss. No weight gain. HEMATOLOGIC/LYMPHATIC: No anemia. No purpura. No petechiae. No prolonged or excessive bleeding. No palpable lymph nodes. PHYSICAL EXAMINATION: VITAL SIGNS: Temperature 97.6, pulse 63, respiratory rate 24, BP 156/70, pulse ox 93%. HEENT: Head normocephalic, atraumatic. Eyes: Extraocular muscles are intact. Pupils are equal, round and reactive to light and accommodation. Ears: No lesions. Nose appeared normal. Throat: No exudate or erythema. NECK: Supple. No JVP, no carotid bruit. No lymphadenopathy or thyromegaly. LUNGS: Decreased breath sounds. Percussion note normal. Mild wheeze noted Percussion note normal. Chest symmetrical. HEART: S1, S2, no S3. Distant. No murmurs. No cyanosis or clubbing. No ascites. Pulses: Dorsalis pedis and posterior tibial pulses +1 bilaterally. ABDOMEN: Protuberant. Soft. Nontender. Bowel sounds active. No CVA tenderness. No mass felt. EXTREMITIES: +1 pitting edema bilaterally. Full range of motion of all extremities, equal. NEUROLOGIC: No focal deficit. Cranial nerves II through XII are grossly intact. No headache, no double vision or headache. SKIN: Not dry. Intact. Turgor - normal. LYMPHATIC: No palpable lymph nodes/no lymphedema. MUSCULOSKELETAL: Normal joints with no swelling. Muscle tone is normal. LABS: BNP 387. Influenza A and B negative. Creatinine 2.49, BUN 75, glucose 489, albumin low, proteins low. ABG p02 95, pc02 41, pH 7.45 with 98% saturation. Hemoglobin 9, hematocrit 28, WBC 4,800 with normal differential. Potassium 4.6. ASSESSMENT: 1. SHORTNESS OF AIR LIKELY COMBINATION OF BRONCHITIS, ASTHMATIC ALONG WITH CHF. 2. CHF 3. CORONARY ARTERY DISEASE 4. MORBID OBESITY 5. SEDENTARY LIFESTYLE 6. EARLY ALZHEIMER'S 7. HISTORY OF CVA 8. GOUTY ARTHRITIS 9. DYSLIPIDEMIA 10. HYPERTENSION 11. ATRIAL FIBRILLATION 12. DIABETES MELLITUS 13. NEUROPATHY 14. ACUTE RENAL FAILURE ON CHRONIC KIDNEY DISEASE PLAN: 1. IV Lasix in the emergency room. 2. Continue Bumex. 3. Monitor CBC and CMP. 4. Encourage the patient to eat and drink fluids. 5. Steroids, nebs treatment. 6. Encourage the patient to lose weight. 7. The patient is DNI, no intubation but she wants everything else to be done. CONDITION: Stable PROGNOSIS:Poor. MTDD
[2017-04-09] MEDS: LOPRESSOR PO SCH ×2 (08:45→17:13)
[2017-04-09] MEDS: CLARITIN PO SCH (08:45)
[2017-04-09] MEDS: CARDIZEM PO SCH ×2 (08:45→21:25)
[2017-04-09] MEDS: PREDNISONE PO SCH (08:45)
[2017-04-09] MEDS: ASPIRIN EC PO SCH (08:45)
[2017-04-09] MEDS: BUMEX PO SCH ×2 (08:45→21:23)
[2017-04-09] MEDS: MIRAPEX PO SCH (08:46)
[2017-04-09] MEDS: ZYLOPRIM PO SCH (08:46)
[2017-04-09] MEDS: ELIQUIS PO SCH ×2 (08:46→21:28)
[2017-04-09] MEDS: ATIVAN PO SCH ×2 (08:46→21:46)
[2017-04-09] MEDS: MUCINEX PO SCH ×2 (08:46→21:25)
[2017-04-09] MEDS: NEURONTIN PO SCH ×6 (08:46→21:24)
[2017-04-09] MEDS: PRISTIQ ER PO SCH (08:47)
[2017-04-09] MEDS: TOBREX 0.3% OP SCH ×3 (08:47→21:41)
[2017-04-09] MEDS: NON-FORMULARY MEDICATION (Calcitriol [Calcitriol] 0.25 MCG) PO SCH (08:50)
--- NOTE | 2017-04-09 09:14 | PN ---
DATE OF SERVICE: 04/06/17 - ADMITTING NOTE REASON FOR HOSPITALIZATION: Shortness of air. HISTORY OF PRESENT ILLNESS: 81-year-old white female, [facility], hospitalized with shortness of air. The patient had shortness of breath with cough with mild wheezing for the past couple of days. The patient was given nebs treatment to which she seemed to have responded according to the [facility] but now she is more short of breath. The patient was seen and examined in the ER by the ER attending and was noted to have chest x-ray showing possibility of congestive heart failure and also mild bronchitis type of symptoms. The patient has history of refractory CHF. On further workup she also had creatinine 2.4, BUN 75, which was abnormal and mucosa 498. The patient has been on steroids. The patient is morbidly obese. REVIEW OF SYSTEMS: CONSTITUTIONAL: No night sweats. No fatigue, malaise, lethargy. No fever or chills. HEENT: Eyes: No visual changes. No eye pain. No eye discharge. ENT: No runny nose. No epistaxis. No sinus pain. No sore throat. No odynophagia. No congestion. RESPIRATORY: No cough, no congestion. No hemoptysis. No shortness of breath. CARDIOVASCULAR: No angina symptoms. No CHF symptoms. No atypical chest pain for CAD. No palpitations. No orthopnea. GASTROINTESTINAL: No abdominal pain. No nausea or vomiting. No diarrhea or constipation. No hematemesis. No hematochezia. GENITOURINARY: No urgency. No frequency. No dysuria. No hematuria. No obstructive symptoms. No discharge. No pain. No significant abnormal bleeding. MUSCULOSKELETAL: No musculoskeletal pain; no joint swelling. NEUROLOGICAL: The patient was alert, oriented to time place and person. No headache. No neck pain. No syncope. No seizures. No dizziness. PSYCHIATRIC: Not anxious. No depression. No suicidal thoughts. No homicidal thoughts. SKIN: No rash. No lesions. No wounds. ENDOCRINE: No unexplained weight loss. No weight gain. HEMATOLOGIC/LYMPHATIC: No anemia. No purpura. No petechiae. No prolonged or excessive bleeding. No palpable lymph nodes. PHYSICAL EXAMINATION: HEENT: Head normocephalic, atraumatic. Eyes: Extraocular muscles are intact. Pupils are equal, round and reactive to light and accommodation. Ears: No lesions. Nose appeared normal. Throat: No exudate or erythema. NECK: Supple. No JVD, no carotid bruit. No lymphadenopathy or thyromegaly. LUNGS: Decreased breath sounds with mild wheeze. Air entry is acceptable. Percussion note normal. Chest symmetrical. HEART: S1, S2, no S3. No murmurs. No cyanosis or clubbing. No ascites. Pulses: Dorsalis pedis and posterior tibial pulses +1 to +2 both sides. ABDOMEN: Protuberant. Soft. Nontender. Bowel sounds active. No CVA tenderness. No mass felt. EXTREMITIES: +1 pitting edema. Full range of motion of all extremities, equal. NEUROLOGIC: No focal deficit. Cranial nerves II through XII are grossly intact. No headache, no double vision or headache. SKIN: Not dry. Intact. Turgor - normal. LYMPHATIC: No palpable lymph nodes/no lymphedema. MUSCULOSKELETAL: Normal joints with no swelling. Muscle tone is normal. ASSESSMENT: 1. SHORTNESS OF AIR IS COMBINATION OF ASTHMATIC BRONCHITIS AND CHF 2. MORBID OBESITY 3. HISTORY OF HYPERTENSION 4. DYSLIPIDEMIA 5. DIABETES MELLITUS PLAN: 1. Steroids IV 2. Nebs treatment 3. IV Lasix 4. Elevate legs 5. Telemetry 6. EKG 7. Sliding scale with insulin coverage; also if blood sugar is more than 500, give 25 units Regular insulin. The patient was seen in [facility], Bed 3. 8. Code status discussed. The patient wants all the measures taken except for intubation. The patient is DNI. CONDITION: Stable. PROGNOSIS: Poor. MTDD
--- NOTE | 2017-04-09 12:43 | PCM.PROG ---
Attending Provider: ATTENDING PROVIDER: Dr. PAULY HANNAH This patient is seen with Yeimi Luong, Nurse Practitioner. DATE OF SERVICE: 04/09/17 SUBJECTIVE: This 81 year old WHITE/ F was hospitalized 04/06/17. The patient is sitting up in bed, alert. She is still with mild shortness of breath, in no distress. Trace to +1 leg edema. Labs from today are pending. REVIEW OF SYSTEMS: CONSTITUTIONAL: Weakness. No night sweats. No malaise, lethargy. No fever or chills. HEENT: Eyes: No visual changes. No eye pain. No eye discharge. ENT: No runny nose. No epistaxis. No sinus pain. No odynophagia. No congestion. RESPIRATORY: No cough, no congestion. No hemoptysis. Shortness of breath. CARDIOVASCULAR: No angina symptoms. No CHF symptoms. No atypical chest pain for CAD. No palpitations. No orthopnea.. GASTROINTESTINAL: No abdominal pain. No nausea or vomiting. No diarrhea or constipation. No hematemesis. No hematochezia. GENITOURINARY: No urgency. No frequency. No dysuria. No hematuria. No obstructive symptoms. No discharge. No pain. No significant abnormal bleeding. MUSCULOSKELETAL: Leg edema. No musculoskeletal pain; no joint swelling. NEUROLOGICAL: Awake, alert, oriented to time, place and person. No headache. No neck pain. No syncope. No seizures. No dizziness. PSYCHIATRIC: Not anxious. No depression. No suicidal thoughts. No homicidal thoughts. SKIN: No rash. No lesions. No wounds. ENDOCRINE: No unexplained weight loss. No weight gain. HEMATOLOGIC/LYMPHATIC: No anemia. No purpura. No petechiae. No prolonged or excessive bleeding. No palpable lymph nodes. PHYSICAL EXAMINATION: GENERAL: The patient is awake, alert and oriented, sitting in bed in no distress. VITAL SIGNS: Temperature 97.8 F, Pulse 58, Respiratory Rate 20, BP 134/61, Pulse Ox 100% HEENT: Head normocephalic, atraumatic. Eyes: Extraocular muscles are intact. Pupils are equal, round and reactive to light and accommodation. Ears: No lesions. Nose appeared normal. Throat: No exudate or erythema. NECK: Supple. No JVD, no carotid bruit. No lymphadenopathy or thyromegaly. LUNGS: Diminished breath sounds. Clear to auscultation. Percussion note normal. Chest symmetrical. HEART: S1, S2, no S3. No murmurs. No cyanosis or clubbing. No ascites. Pulses: Dorsalis pedis and posterior tibial pulses +1 to +2 both sides. ABDOMEN: Soft. Non-tender. Bowel sounds active. No CVA tenderness. No mass felt. EXTREMITIES: +1 leg edema. Full range of motion of all extremities, equal. NEUROLOGIC: No focal deficit. Cranial nerves II through XII are grossly intact. No headache, no double vision or headache. SKIN: Not dry. Intact. Turgor-normal. LYMPHATIC: No palpable lymph nodes/no lymphedema. MUSCULOSKELETAL: Normal joints with no swelling. Muscle tone is normal. LAB REVIEW: 04/08/17 04:30 04/08/17 04:30 ASSESSMENT: 1. SHORTNESS OF BREATH, COMBINATION OF CHRONIC BRONCHITIS AND CHF IMPROVING. 2. EVEN WITH AGGRESSIVE DIURETIC THERAPY KIDNEY FUNCTION IS IMPROVED PLAN: 1. CBC, CMP 2. ELEVATE LEGS Plan and coordination of the patient's care discussed in the presence of Fitness Centre Manager and nurse. CONDITION: Stable SCRIBED BY: MARIA ESTHER SKAGGS Sports Recruiter scribed while in presence of service performed by Dr. Hannah/Yeimi Luong APRN on 04/09/17 ([id number])
[2017-04-09] MEDS: LIPITOR PO SCH (21:26)
[2017-04-09] MEDS: ARICEPT PO SCH (21:26)
[2017-04-09] MEDS: REMERON PO SCH (21:27)
[2017-04-09] MEDS: LANTUS SUBCUT SCH (21:37)
[2017-04-09] MEDS: SODIUM CHLORIDE 1,000 ML IV SCH (23:56)
[2017-04-10] MEDS: HUMULIN R SUBCUT PRN ×5 (00:26→20:29)
[2017-04-10] MEDS: DUONEB NEB SCH ×4 (05:49→22:00)
[2017-04-10] MEDS: PRILOSEC PO SCH (06:32)
[2017-04-10] MEDS: TOBREX 0.3% OP SCH ×3 (08:34→20:28)
[2017-04-10] MEDS: LOPRESSOR PO SCH ×2 (08:35→17:17)
[2017-04-10] MEDS: ATIVAN PO SCH ×2 (08:35→20:28)
[2017-04-10] MEDS: BUMEX PO SCH ×2 (08:35→20:28)
[2017-04-10] MEDS: MUCINEX PO SCH ×2 (08:35→20:28)
[2017-04-10] MEDS: NEURONTIN PO SCH ×6 (08:36→20:28)
[2017-04-10] MEDS: ELIQUIS PO SCH ×2 (08:36→20:28)
[2017-04-10] MEDS: PREDNISONE PO SCH (08:37)
[2017-04-10] MEDS: ASPIRIN EC PO SCH (08:37)
[2017-04-10] MEDS: CLARITIN PO SCH (08:37)
[2017-04-10] MEDS: MIRAPEX PO SCH (08:37)
[2017-04-10] MEDS: ZYLOPRIM PO SCH (08:38)
[2017-04-10] MEDS: PRISTIQ ER PO SCH (08:38)
[2017-04-10] MEDS: CARDIZEM PO SCH ×2 (08:38→20:28)
[2017-04-10] MEDS: NON-FORMULARY MEDICATION (Calcitriol [Calcitriol] 0.25 MCG) PO SCH (08:40)
[2017-04-10] MEDS: ARICEPT PO SCH (20:27)
[2017-04-10] MEDS: REMERON PO SCH (20:27)
[2017-04-10] MEDS: LIPITOR PO SCH (20:27)
[2017-04-10] MEDS: LANTUS SUBCUT SCH (20:29)
[2017-04-10] MEDS: SODIUM CHLORIDE 1,000 ML IV SCH (20:29)
[2017-04-11] MEDS: DUONEB NEB SCH ×3 (04:50→22:00)
[2017-04-11] MEDS: HUMULIN R SUBCUT PRN ×3 (05:44→17:19)
[2017-04-11] MEDS: PRILOSEC PO SCH (05:44)
[2017-04-11] MEDS: PRISTIQ ER PO SCH (08:26)
[2017-04-11] MEDS: ZYLOPRIM PO SCH (08:26)
[2017-04-11] MEDS: PREDNISONE PO SCH (08:26)
[2017-04-11] MEDS: BUMEX PO SCH ×2 (08:27→21:19)
[2017-04-11] MEDS: ASPIRIN EC PO SCH (08:27)
[2017-04-11] MEDS: ATIVAN PO SCH ×2 (08:27→21:17)
[2017-04-11] MEDS: NON-FORMULARY MEDICATION (Calcitriol [Calcitriol] 0.25 MCG) PO SCH (08:27)
[2017-04-11] MEDS: NEURONTIN PO SCH ×6 (08:27→21:21)
[2017-04-11] MEDS: MIRAPEX PO SCH (08:27)
[2017-04-11] MEDS: ELIQUIS PO SCH ×2 (08:28→21:18)
[2017-04-11] MEDS: CARDIZEM PO SCH ×2 (08:28→21:20)
[2017-04-11] MEDS: MUCINEX PO SCH ×2 (08:28→21:20)
[2017-04-11] MEDS: LOPRESSOR PO SCH ×2 (08:29→17:17)
[2017-04-11] MEDS: TOBREX 0.3% OP SCH ×3 (08:29→21:22)
[2017-04-11] MEDS: REMERON PO SCH (21:20)
[2017-04-11] MEDS: LIPITOR PO SCH (21:20)
[2017-04-11] MEDS: ARICEPT PO SCH (21:20)
[2017-04-11] MEDS: ULTRAM PO PRN (21:21)
[2017-04-11] MEDS: LANTUS SUBCUT SCH (21:22)
[2017-04-11] MEDS: SODIUM CHLORIDE 1,000 ML IV SCH (21:26)
[2017-04-12] MEDS: SODIUM CHLORIDE 1,000 ML IV SCH (00:14)
[2017-04-12] MEDS: DUONEB NEB SCH ×3 (04:48→22:20)
[2017-04-12] MEDS: PRILOSEC PO SCH (05:41)
[2017-04-12] MEDS: HUMULIN R SUBCUT PRN ×4 (05:41→22:13)
[2017-04-12] MEDS: PRISTIQ ER PO SCH (08:46)
[2017-04-12] MEDS: MIRAPEX PO SCH (08:46)
[2017-04-12] MEDS: MUCINEX PO SCH ×2 (08:46→22:17)
[2017-04-12] MEDS: PREDNISONE PO SCH (08:46)
[2017-04-12] MEDS: BUMEX PO SCH ×2 (08:47→17:16)
[2017-04-12] MEDS: ELIQUIS PO SCH ×2 (08:47→22:18)
[2017-04-12] MEDS: LOPRESSOR PO SCH ×2 (08:47→17:16)
[2017-04-12] MEDS: ASPIRIN EC PO SCH (08:47)
[2017-04-12] MEDS: NEURONTIN PO SCH ×6 (08:48→22:17)
[2017-04-12] MEDS: ZYLOPRIM PO SCH (08:48)
[2017-04-12] MEDS: CARDIZEM PO SCH ×2 (08:48→22:17)
[2017-04-12] MEDS: ATIVAN PO SCH ×2 (08:48→22:21)
[2017-04-12] MEDS: NON-FORMULARY MEDICATION (Calcitriol [Calcitriol] 0.25 MCG) PO SCH (08:49)
[2017-04-12] MEDS: TOBREX 0.3% OP SCH ×3 (08:50→22:16)
--- NOTE | 2017-04-12 10:52 | PCM.PROG ---
Attending Provider: ATTENDING PROVIDER: Dr. PAULY HANNAH This patient is seen with Yeimi Luong, Nurse Practitioner. DATE OF SERVICE: 04/12/17 SUBJECTIVE: This 81 year old WHITE/ F was hospitalized 04/06/17. The patient is sitting in chair, alert. Kidney function slightly improved. She has been eating well. REVIEW OF SYSTEMS: CONSTITUTIONAL: Weakness. No night sweats. No malaise, lethargy. No fever or chills. HEENT: Eyes: No visual changes. No eye pain. No eye discharge. ENT: No runny nose. No epistaxis. No sinus pain. No odynophagia. No congestion. RESPIRATORY: No cough, no congestion. No hemoptysis. Shortness of breath. CARDIOVASCULAR: No angina symptoms. No CHF symptoms. No atypical chest pain for CAD. No palpitations. No orthopnea.. GASTROINTESTINAL: No abdominal pain. No nausea or vomiting. No diarrhea or constipation. No hematemesis. No hematochezia. GENITOURINARY: No urgency. No frequency. No dysuria. No hematuria. No obstructive symptoms. No discharge. No pain. No significant abnormal bleeding. MUSCULOSKELETAL: Positive for leg edema. No musculoskeletal pain; no joint swelling. NEUROLOGICAL: Awake, alert, oriented to time, place and person. No headache. No neck pain. No syncope. No seizures. No dizziness. PSYCHIATRIC: Not anxious. No depression. No suicidal thoughts. No homicidal thoughts. SKIN: No rash. No lesions. No wounds. ENDOCRINE: No unexplained weight loss. No weight gain. HEMATOLOGIC/LYMPHATIC: No anemia. No purpura. No petechiae. No prolonged or excessive bleeding. No palpable lymph nodes. PHYSICAL EXAMINATION: GENERAL: The patient is awake, alert and oriented, sitting in bed in no distress. VITAL SIGNS: Temperature 97.3 F, Pulse 59, Respiratory Rate 20, BP 151/68, Pulse Ox 96% HEENT: Head normocephalic, atraumatic. Eyes: Extraocular muscles are intact. Pupils are equal, round and reactive to light and accommodation. Ears: No lesions. Nose appeared normal. Throat: No exudate or erythema. NECK: Supple. No JVD, no carotid bruit. No lymphadenopathy or thyromegaly. LUNGS: Diminished breath sounds. Clear to auscultation. Percussion note normal. Chest symmetrical. HEART: S1, S2, no S3. No murmurs. No cyanosis or clubbing. No ascites. Pulses: Dorsalis pedis and posterior tibial pulses +1 to +2 both sides. ABDOMEN: Soft. Non-tender. Bowel sounds active. No CVA tenderness. No mass felt. EXTREMITIES: Trace leg edema. Full range of motion of all extremities, equal. NEUROLOGIC: No focal deficit. Cranial nerves II through XII are grossly intact. No headache, no double vision or headache. SKIN: Not dry. Intact. Turgor-normal. LYMPHATIC: No palpable lymph nodes/no lymphedema. MUSCULOSKELETAL: Normal joints with no swelling. Muscle tone is normal. LAB REVIEW: 04/12/17 05:20 04/12/17 05:20 04/12/17 05:20: Sodium 144, Potassium 4.0, Chloride 102, Carbon Dioxide 31, Anion Gap 15.0, BUN 48 H, Creatinine 1.72 H, Estimated GFR (MDRD) 28.00, BUN/ Creatinine Ratio 27.90, Glucose 228 H, Calcium 9.1, Total Bilirubin 0.3, AST 15 , ALT 37, Alkaline Phosphatase 64, Total Protein 5.4 L, Albumin 2.7 L, Globulin 2.7, Albumin/Globulin Ratio 1.00 04/12/17 05:20: WBC 6.84, RBC 3.83 L, Hgb 9.9 L, Hct 31.1 L, MCV 81.2, MCH 25.8 L, MCHC 31.8, RDW Coeff of [place] 26.8 H, Plt Count 262, Immature Gran % (Auto) 2.3 , Neut % (Auto) 61.2, Lymph % (Auto) 27.0, [place] % (Auto) 8.8, Eos % (Auto) 0.4, Baso % (Auto) 0.3, Immature Gran # (Auto) 0.2, Neut # (Auto) 4.2, Lymph # (Auto ) 1.9, [place] # (Auto) 0.6, Eos # (Auto) 0.0, Baso # (Auto) 0.0 ASSESSMENT: 1. SHORTNESS OF BREATH, COMBINATION OF CHRONIC BRONCHITIS AND CHF IMPROVING. 2. EVEN WITH AGGRESSIVE DIURETIC THERAPY KIDNEY FUNCTION IS IMPROVED PLAN: 1. Saline Lock 2. Repeat chest x-ray Plan and coordination of the patient's care discussed in the presence of Fire Protection Inspector and nurse. CONDITION: Stable SCRIBED BY: MARIA ESTHER SKAGGS Revenue Research Analyst scribed while in presence of service performed by Dr. Hannah/Yeimi Luong APRN on 04/12/17 ([id number])
--- NOTE | 2017-04-12 13:28 | DI ---
EXAM: Single frontal view of the chest HISTORY: Congestive heart failure. COMPARISON: Chest x-ray 04/06/2017 and multiple priors including CT chest 03/24/2017 FINDINGS: Cardiomediastinal silhouette is unremarkable. There is no pneumothorax or pleural effusion . There is no consolidation, nodule or mass. There is no definitive edema. The osseous structures are unremarkable. IMPRESSION: There is no acute abnormality or consolidative process.
[2017-04-12] MEDS: LANTUS SUBCUT SCH (22:14)
[2017-04-12] MEDS: REMERON PO SCH (22:17)
[2017-04-12] MEDS: LIPITOR PO SCH (22:17)
[2017-04-12] MEDS: ARICEPT PO SCH (22:18)
[2017-04-13] MEDS: DUONEB NEB SCH (05:06)
[2017-04-13] MEDS: HUMULIN R SUBCUT PRN ×2 (05:41→12:52)
[2017-04-13] MEDS: BUMEX PO SCH (05:41)
[2017-04-13] MEDS: PRILOSEC PO SCH (05:41)
[2017-04-13] MEDS ORDERED: DRISDOL PO SCH (09:00)
[2017-04-13] MEDS ORDERED: NON-FORMULARY MEDICATION (Cholecalciferol (Vitamin D3) [Vitamin D3] 50,000 UNIT) PO SCH (09:00)
[2017-04-13] MEDS: TOBREX 0.3% OP SCH (09:22)
[2017-04-13] MEDS: CARDIZEM PO SCH (09:23)
[2017-04-13] MEDS: NEURONTIN PO SCH ×2 (09:23→09:24)
[2017-04-13] MEDS: ATIVAN PO SCH (09:23)
[2017-04-13] MEDS: PRISTIQ ER PO SCH (09:23)
[2017-04-13] MEDS: MIRAPEX PO SCH (09:23)
[2017-04-13] MEDS: ELIQUIS PO SCH (09:23)
[2017-04-13] MEDS: PREDNISONE PO SCH (09:23)
[2017-04-13] MEDS: MUCINEX PO SCH (09:24)
[2017-04-13] MEDS: LOPRESSOR PO SCH (09:24)
[2017-04-13] MEDS: ZYLOPRIM PO SCH (09:24)
[2017-04-13] MEDS: ASPIRIN EC PO SCH (09:24)
[2017-04-13] MEDS: NON-FORMULARY MEDICATION (Calcitriol [Calcitriol] 0.25 MCG) PO SCH (09:25)
--- NOTE | 2017-04-13 10:11 | PCM.PROG ---
Attending Provider: ATTENDING PROVIDER: Dr. PAULY HANNAH This patient is seen with Yeimi Luong, Nurse Practitioner. DATE OF SERVICE: 04/13/17 SUBJECTIVE: This 81 year old WHITE/ F was hospitalized 04/06/17. The patient is lying in bed, alert. Will discharge back to [facility] today. Discussed with patient chronic conditions and maintenance of these conditions. BNP has improved. She is no acute distress. REVIEW OF SYSTEMS: CONSTITUTIONAL: Weakness. No night sweats. No malaise, lethargy. No fever or chills. HEENT: Eyes: No visual changes. No eye pain. No eye discharge. ENT: No runny nose. No epistaxis. No sinus pain. No odynophagia. No congestion. RESPIRATORY: No cough, no congestion. No hemoptysis. Shortness of breath. CARDIOVASCULAR: No angina symptoms. No CHF symptoms. No atypical chest pain for CAD. No palpitations. No orthopnea.. GASTROINTESTINAL: No abdominal pain. No nausea or vomiting. No diarrhea or constipation. No hematemesis. No hematochezia. GENITOURINARY: No urgency. No frequency. No dysuria. No hematuria. No obstructive symptoms. No discharge. No pain. No significant abnormal bleeding. MUSCULOSKELETAL: No musculoskeletal pain; no joint swelling. NEUROLOGICAL: Awake, alert, oriented to time, place and person. No headache. No neck pain. No syncope. No seizures. No dizziness. PSYCHIATRIC: Not anxious. No depression. No suicidal thoughts. No homicidal thoughts. SKIN: No rash. No lesions. No wounds. ENDOCRINE: No unexplained weight loss. No weight gain. HEMATOLOGIC/LYMPHATIC: No anemia. No purpura. No petechiae. No prolonged or excessive bleeding. No palpable lymph nodes. PHYSICAL EXAMINATION: GENERAL: The patient is awake, alert and oriented, lying/sitting in bed in no distress. VITAL SIGNS: Temperature 97.5 F, Pulse 66, Respiratory Rate 20, BP 151/47, Pulse Ox 97% HEENT: Head normocephalic, atraumatic. Eyes: Extraocular muscles are intact. Pupils are equal, round and reactive to light and accommodation. Ears: No lesions. Nose appeared normal. Throat: No exudate or erythema. NECK: Supple. No JVD, no carotid bruit. No lymphadenopathy or thyromegaly. LUNGS: Diminished breath sounds. Clear to auscultation. Percussion note normal. Chest symmetrical. HEART: S1, S2, no S3. No murmurs. No cyanosis or clubbing. No ascites. Pulses: Dorsalis pedis and posterior tibial pulses +1 to +2 both sides. ABDOMEN: Soft. Non-tender. Bowel sounds active. No CVA tenderness. No mass felt. EXTREMITIES: +1 bilateral leg edema. Full range of motion of all extremities, equal. NEUROLOGIC: No focal deficit. Cranial nerves II through XII are grossly intact. No headache, no double vision or headache. SKIN: Not dry. Intact. Turgor-normal. LYMPHATIC: No palpable lymph nodes/no lymphedema. MUSCULOSKELETAL: Normal joints with no swelling. Muscle tone is normal. LAB REVIEW: 04/13/17 04:45 04/13/17 04:45 04/13/17 05:20: B-Natriuretic Peptide 129 H 04/13/17 04:45: Sodium 142, Potassium 3.8, Chloride 100, Carbon Dioxide 32 H, Anion Gap 13.8, BUN 53 H, Creatinine 1.88 H, Estimated GFR (MDRD) 26.00, BUN/ Creatinine Ratio 28.19, Glucose 295 H D, Calcium 8.9, Total Bilirubin 0.3, AST 11 L, ALT 31, Alkaline Phosphatase 62, Total Protein 5.2 L, Albumin 2.5 L, Globulin 2.7, Albumin/Globulin Ratio 0.93 04/13/17 04:45: WBC 7.97, RBC 3.79 L, Hgb 9.7 L, Hct 31.0 L, MCV 81.8, MCH 25.6 L, MCHC 31.3 L, RDW Coeff of Kwabena 26.3 H, Plt Count 248, Immature Gran % (Auto) 1.5, Neut % (Auto) 63.7, Lymph % (Auto) 26.2, Preble % (Auto) 7.7, Eos % (Auto) 0.5, Baso % (Auto) 0.4, Immature Gran # (Auto) 0.1, Neut # (Auto) 5.1, Lymph # ( Auto) 2.1, Preble # (Auto) 0.6, Eos # (Auto) 0.0, Baso # (Auto) 0.0 ASSESSMENT: 1. SHORTNESS OF BREATH, COMBINATION OF CHRONIC BRONCHITIS AND CHF IMPROVING. 2. EVEN WITH AGGRESSIVE DIURETIC THERAPY KIDNEY FUNCTION IS IMPROVED 3. CKD 4. GENERALIZED WEAKNESS 5. COPD OXYGEN DEPENDENT 6. CHRONIC CHF PLAN: 1. D/C back to longterm 2. Keep legs elevated 3. Low salt diet 4. Encouraged to be up and about 5. Prednisone 5 mg times five days 6. CBC and CMP monthly Plan and coordination of the patient's care discussed in the presence of Information Technology Audit Manager and nurse. CONDITION: STABLE SCRIBED BY: MARIA ESTHER SKAGGS Veterinary Pharmacologist scribed while in presence of service performed by Dr. Hannah/Yeimi Luong APRN on 04/13/17 ([id number])
[2017-04-13 10:53] VITALS: BP 119/54; TEMP 97.8
--- NOTE | 2017-04-13 11:14 | CM.DICTOOL ---
ADMISSION: 04/06/17 17:57 DISCHARGE: APRIL 13, 2017 DATE OF SERVICE: 04/13/17 FINAL DIAGNOSIS CONGESTIVE HEART FAILURE RENAL FAILURE COPD ASTHMATIC BRONCHITIS CHRONIC LEG EDEMA CAD HYPERTENSION TIA, 2016 DM, TYPE 2 DYSLIPIDEMIA CHRONIC KIDNEY DISEASE ANEMIA RESTLESS LEG SYNDROME ARTHRITIS DEPRESSION/ANXIETY ALZHEIMER'S, EARLY OBESITY ANKLE SURGERY CARPAL TUNNEL REPAIR LASER EYE SURGERY NEVER SMOKER LAST VITALS Temp Pulse Resp BP Pulse Ox 97.5 F L 66 20 151/47 H 97 04/13/17 06:00 04/13/17 06:00 04/13/17 06:00 04/13/17 06:00 04/13/17 06:00 ACTIVE HOME MEDICATIONS Acetaminophen (Tylenol) 650 mg PO Q4H PRN PRN Reason: Mild Pain Last Admin: 04/12/17 07:36 Dose: 650 mg Albuterol Sulfate (Proair Hfa) 2 puff IH Q6H PRN PRN Reason: wheezing Allopurinol (Zyloprim) 100 mg PO DAILY [facility] Last Admin: 04/13/17 09:24 Dose: 100 mg Apixaban (Eliquis) 2.5 mg PO BID [facility] Last Admin: 04/13/17 09:23 Dose: 2.5 mg Aspirin (Aspirin Ec) 81 mg PO DAILYWM [facility] Last Admin: 04/13/17 09:24 Dose: 81 mg Atorvastatin Calcium (Lipitor) 20 mg PO BEDTIME [facility] Last Admin: 04/12/17 22:17 Dose: 20 mg Bumetanide (Bumex) 1 mg PO 0600,1600 [facility] Last Admin: 04/13/17 05:41 Dose: 1 mg Diltiazem HCl (Cardizem) 60 mg PO BID [facility] Last Admin: 04/13/17 09:23 Dose: 60 mg Donepezil HCl (Aricept) 10 mg PO BEDTIME [facility] Last Admin: 04/12/17 22:18 Dose: 10 mg Ergocalciferol (Drisdol) 50,000 unit PO WEEKLY [facility] Last Admin: 04/13/17 09:24 Dose: 50,000 unit Gabapentin (Neurontin) 100 mg PO TID [facility] Last Admin: 04/13/17 09:24 Dose: 100 mg Gabapentin (Neurontin) 300 mg PO TID [facility] Last Admin: 04/13/17 09:23 Dose: 300 mg Guaifenesin (Mucinex) 600 mg PO BID [facility] Last Admin: 04/13/17 09:24 Dose: 600 mg Insulin Glargine (Lantus) 70 unit SUBCUT BEDTIME [facility] Last Admin: 04/12/17 22:14 Dose: 70 unit Insulin Human Regular (Humulin R) 0 unit SUBCUT PRN PRN; Protocol PRN Reason: Hyperglycemica Last Admin: 04/13/17 05:41 Dose: 6 unit Desvenlafaxine Succinate (Pristiq) 100 mg PO DAILY Last Admin: 04/13/2017 10:00 Lorazepam (Ativan) 0.5 mg PO BID [facility] Last Admin: 04/13/17 09:23 Dose: 0.5 mg Metoprolol Tartrate (Lopressor) 25 mg PO BIDWM [facility] Last Admin: 04/13/17 09:24 Dose: 25 mg Mirtazapine (Remeron) 15 mg PO BEDTIME [facility] Last Admin: 04/12/17 22:17 Dose: 15 mg Non-Formulary Medication (Calcitriol [Calcitriol]) 0.25 mcg PO DAILY [facility] Last Admin: 04/13/17 09:25 Dose: 0.25 mcg Omeprazole (Prilosec) 20 mg PO QDAC [facility] Last Admin: 04/13/17 05:41 Dose: 20 mg Pramipexole Dihydrochloride (Mirapex) 1 mg PO DAILY [facility] Last Admin: 04/13/17 09:23 Dose: 1 mg Tobramycin Sulfate (Tobrex 0.3%) 2 drop OP TID [facility] Last Admin: 04/13/17 09:22 Dose: 2 drop Tramadol HCl (Ultram) 50 mg PO Q8HR PRN PRN Reason: MODERATE PAIN Last Admin: 04/11/17 21:21 Dose: 50 mg Calcitriol 0.25 mcg PO Daily Last Admin: ALLERGIES Penicillins Adverse Reaction (Verified 04/06/17 15:38) Sulfa (Sulfonamide Antibiotics) Adverse Reaction (Verified 04/06/17 15:38) NEW PRESCRIPTIONS: Prednisone 5 mg daily for 5 days; start 04/14/2017 Xopenex 1.25 mg nebulizer treatment TID Pulmicort Neb treatment at bedtime daily SMOKING: Not Applicable DISEASE SPECIFIC EDUCATION: Leg Edema Congestive Heart Failure Importance of increasing protein Importance of increasing activity LAB REVIEW: 04/13/17 04:45 04/13/17 04:45 04/13/17 05:20: B-Natriuretic Peptide 129 H 04/13/17 04:45: Sodium 142, Potassium 3.8, Chloride 100, Carbon Dioxide 32 H, Anion Gap 13.8, BUN 53 H, Creatinine 1.88 H, Estimated GFR (MDRD) 26.00, BUN/ Creatinine Ratio 28.19, Glucose 295 H D, Calcium 8.9, Total Bilirubin 0.3, AST 11 L, ALT 31, Alkaline Phosphatase 62, Total Protein 5.2 L, Albumin 2.5 L, Globulin 2.7, Albumin/Globulin Ratio 0.93 04/13/17 04:45: WBC 7.97, RBC 3.79 L, Hgb 9.7 L, Hct 31.0 L, MCV 81.8, MCH 25.6 L, MCHC 31.3 L, RDW Coeff of Kwabena 26.3 H, Plt Count 248, Immature Gran % (Auto) 1.5, Neut % (Auto) 63.7, Lymph % (Auto) 26.2, Mason % (Auto) 7.7, Eos % (Auto) 0.5, Baso % (Auto) 0.4, Immature Gran # (Auto) 0.1, Neut # (Auto) 5.1, Lymph # ( Auto) 2.1, Mason # (Auto) 0.6, Eos # (Auto) 0.0, Baso # (Auto) 0.0 PLAN: Discharge to [facility] Diet: Consistent Carbohydrates, Regular texture, Regular liquids. No added salt Increased protein at breakfast Activity: up to bathroom for toileting Up to dining room for meals Elevate legs at night and during the day to help reduce swelling Physical and Occupational Therapy evaluation and treatment Patient to continue to ambulate several times daily, short distances CBC, CMP in 1 week, then monthly Accu-checks AC and HS Continue Oxygen at 1- 2 liters Oximetry daily Vital Signs daily for 1 week, then weekly Weigh weekly DNI, CPR only Discontinue these medications: Duonebs Benzonatate (Tessalon Perle) Diphenhydramine HCL (Benadryl) Loratadine Meclizine HCL Patient to be seen on senior care rounds in 7-10 days by Yeimi Luong APRN/ Dr. Conory Ms. Santo is alert and oriented x 3. She wears oxygen continuously at 2 Liters due to shortness of air. She is independent with bed mobility. A rolling walker is used for ambulation to the bathroom and in the room. Her gait is steady and she does not require staff assistance for ambulation (stand by assistance only). She is continent of bowel and bladder. Last bowel movement yesterday. Meal intakes are good at 100%. Weight today at 245. Skin is intact , scarring noted to the right buttock. Bruising is noted to the left forearm, abdomen. Juice Conroy MD Yeimi Luong APRN
--- NOTE | 2017-04-19 07:04 | PN ---
DATE OF SERVICE: 04/09/17 SUBJECTIVE: 81-year-old white female was seen and examined with the nurse practitioner. The patient has combination of bronchitis, COPD and CHF. The patient's condition has improved. The audible wheezing has subsided. PHYSICAL EXAMINATION: HEENT: Head normocephalic, atraumatic. Eyes: Extraocular muscles are intact. Pupils are equal, round and reactive to light and accommodation. Ears: No lesions. Nose appeared normal. Throat: No exudate or erythema. NECK: Supple. No JVD, no carotid bruit. No lymphadenopathy or thyromegaly. LUNGS: Decreased breath sounds. Clear to auscultation. Percussion note normal. Chest symmetrical. HEART: S1, S2, no S3. No murmurs. No cyanosis or clubbing. No ascites. Pulses: Dorsalis pedis and posterior tibial pulses +1 to +2 both sides. ABDOMEN: Soft. Nontender. Bowel sounds active. No CVA tenderness. No mass felt. EXTREMITIES: No edema. Full range of motion of all extremities, equal. NEUROLOGIC: No focal deficit. Cranial nerves II through XII are grossly intact. No headache, no double vision or headache. SKIN: Not dry. Intact. Turgor - normal. LYMPHATIC: No palpable lymph nodes/no lymphedema. MUSCULOSKELETAL: Normal joints with no swelling. Muscle tone is normal. ASSESSMENT: The patient's daughter is in the room. The patient's main problem we discussed that she eats a lot. Her appetite is great. Advised the patient to eat more meat so that she doesn't bulk up total intake and also doesn't get too many calories. The patient's condition is improving clinically very slowly but her prognosis is not good. TIME SPENT: More than 30 minutes. Plan and coordination of the patient's care discussed in the presence of nurse. JOSE
--- NOTE | 2017-04-19 09:06 | PN ---
DATE OF SERVICE: 04/10/17 SUBJECTIVE: This 81-year-old white female is hospitalized with bronchitis, CHF. The patient' s condition has improved slowly. Wheezing is much less. She says she is feeling a lot better. I explained to the daughter and to the patient both that she has multiple medical problems like congestive heart failure, severe chronic lung disease, morbid obesity, chronic kidney disease, diabetes mellitus, anemia. Considering all these issues and practically her not being able to ambulate, almost bedridden, patient's prognosis is very poor. REVIEW OF SYSTEMS: CONSTITUTIONAL: Positive for fatigue and weakness. No night sweats. No malaise, lethargy. No fever or chills. HEENT: Eyes: No visual changes. No eye pain. No eye discharge. ENT: No runny nose. No epistaxis. No sinus pain. No sore throat. No odynophagia. No congestion. RESPIRATORY: No cough but difficulty breathing with exertion. No congestion. No hemoptysis. Shortness of breath on minimal exertion. CARDIOVASCULAR: No angina symptoms. No CHF symptoms. No atypical chest pain for CAD. No palpitations. No orthopnea. GASTROINTESTINAL: No abdominal pain. No nausea or vomiting. No diarrhea or constipation. No hematemesis. No hematochezia. GENITOURINARY: No urgency. No frequency. No dysuria. No hematuria. No obstructive symptoms. No discharge. No pain. No significant abnormal bleeding. MUSCULOSKELETAL: Generalized aches and pains. NEUROLOGICAL: Mental status normal. No headache. No neck pain. No syncope. No seizures. No dizziness. PSYCHIATRIC: Not anxious. No depression. No suicidal thoughts. No homicidal thoughts. SKIN: No rash. No lesions. No wounds. ENDOCRINE: No unexplained weight loss. No weight gain. HEMATOLOGIC/LYMPHATIC: No anemia. No purpura. No petechiae. No prolonged or excessive bleeding. No palpable lymph nodes. PHYSICAL EXAMINATION: VITAL SIGNS: Temperature 97.8, pulse 62, respiratory rate 22, BP 150/50, pulse ox 95%. HEENT: Head normocephalic, atraumatic. Eyes: Extraocular muscles are intact. Pupils are equal, round and reactive to light and accommodation. Ears: No lesions. Nose appeared normal. Throat: No exudate or erythema. NECK: Supple. No JVD, no carotid bruit. No lymphadenopathy or thyromegaly. LUNGS: Decreased breath sounds. Clear to auscultation. Percussion note normal. Chest symmetrical. HEART: S1, S2, no S3. No murmurs. No cyanosis or clubbing. No ascites. Pulses: Dorsalis pedis and posterior tibial pulses +1 to +2 both sides. ABDOMEN: Soft. Nontender. Bowel sounds active. No CVA tenderness. No mass felt. EXTREMITIES: No edema. Full range of motion of all extremities, equal. NEUROLOGIC: No focal deficit. Cranial nerves II through XII are grossly intact. No headache, no double vision or headache. SKIN: Not dry. Intact. Turgor - normal. LYMPHATIC: No palpable lymph nodes/no lymphedema. MUSCULOSKELETAL: Normal joints with no swelling. Muscle tone is normal. ASSESSMENT: 1. ACUTE ASTHMATIC BRONCHITIS SEEMS TO BE RESOLVING 2. CHF SEEMS TO BE UNDER CONTROL 3. CHRONIC KIDNEY DISEASE WITH STABLE KIDNEY FUNCTION PLAN: 1. Discontinue Tessalon Perles 2. Discontinue Benadryl 3. Discontinue Loratadine 4. Continue Antivert 5. The patient also has dementia for which she is getting Aricept 6. The patient has diabetic neuropathy for which she is getting Gabapentin 400 mg t.i.d. TIME SPENT: More than 30 minutes. Plan and coordination of the patient's care discussed in the presence of nurse. JOSE
--- NOTE | 2017-04-19 09:13 | PN ---
DATE OF SERVICE: 04/11/17 SUBJECTIVE: 81-year-old white female who is morbidly obese has multiple medical problems like CHF, chronic lung disease, chronic kidney disease. She has diabetes mellitus. She has been feeling much better. Her appetite is good. She loves to eat. All the medical conditions discussed with her. REVIEW OF SYSTEMS: CONSTITUTIONAL: No night sweats. No fatigue, malaise, lethargy. No fever or chills. HEENT: Eyes: No visual changes. No eye pain. No eye discharge. ENT: No runny nose. No epistaxis. No sinus pain. No sore throat. No odynophagia. No congestion. RESPIRATORY: No cough, no congestion. No hemoptysis. Shortness of breath on exertion. CARDIOVASCULAR: No angina symptoms. No CHF symptoms. No atypical chest pain for CAD. No palpitations. No orthopnea. GASTROINTESTINAL: No abdominal pain. No nausea or vomiting. No diarrhea or constipation. No hematemesis. No hematochezia. GENITOURINARY: No urgency. No frequency. No dysuria. No hematuria. No obstructive symptoms. No discharge. No pain. No significant abnormal bleeding. MUSCULOSKELETAL: No musculoskeletal pain; no joint swelling. NEUROLOGICAL: No headache. No neck pain. No syncope. No seizures. No dizziness. PSYCHIATRIC: Not anxious. No depression. No suicidal thoughts. No homicidal thoughts. SKIN: No rash. No lesions. No wounds. ENDOCRINE: No unexplained weight loss. No weight gain. HEMATOLOGIC/LYMPHATIC: No anemia. No purpura. No petechiae. No prolonged or excessive bleeding. No palpable lymph nodes. PHYSICAL EXAMINATION: GENERAL: The patient is oriented to time, place and person. VITAL SIGNS: Temperature 98, pulse 60, respiratory rate 18, BP 156/60, pulse ox 97%. HEENT: Head normocephalic, atraumatic. Eyes: Extraocular muscles are intact. Pupils are equal, round and reactive to light and accommodation. Ears: No lesions. Nose appeared normal. Throat: No exudate or erythema. NECK: Supple. No JVD, no carotid bruit. No lymphadenopathy or thyromegaly. LUNGS: Decreased breath sounds but clear to auscultation. Percussion note normal. Chest symmetrical. HEART: S1, S2, no S3. No murmurs. No cyanosis or clubbing. No ascites. Pulses: Dorsalis pedis and posterior tibial pulses +1 to +2 both sides. ABDOMEN: Soft. Nontender. Bowel sounds active. No CVA tenderness. No mass felt. EXTREMITIES: No edema. Full range of motion of all extremities, equal. NEUROLOGIC: No focal deficit. Cranial nerves II through XII are grossly intact. No headache, no double vision or headache. SKIN: Not dry. Intact. Turgor - normal. LYMPHATIC: No palpable lymph nodes/no lymphedema. MUSCULOSKELETAL: Normal joints with no swelling. Muscle tone is normal. LABS: Hemoglobin 9.9, hematocrit 31, WBC 6,300, normal differential. Creatinine 1.6, BUN 53. ASSESSMENT: 1. CHF, STAGE 3 TO STAGE 4, CHRONIC BRONCHITIS BOTH SEEM TO BE UNDER CONTROL 2. CHRONIC KIDNEY DISEASE, STABLE, IMPROVING 3. DIABETES MELLITUS SEEMS TO BE MUCH BETTER PLAN: 1. Cut down on food intake 2. Increase protein intake 3. Continue steroids and nebs treatment 4. Antibiotics CONDITION: Stable PROGNOSIS: Guarded TIME SPENT: More than 30 minutes. Plan and coordination of the patient's care discussed in the presence of nurse. JOSE
--- NOTE | 2017-04-19 09:19 | PN ---
DATE OF SERVICE: 04/12/17 SUBJECTIVE: 81-year-old white female hospitalized with respiratory distress which was a combination of CHF and bronchitis. The patient's condition has steadily improved. Her kidney functions are stable. Hemoglobin and hematocrit are stable. PHYSICAL EXAMINATION: HEENT: Head normocephalic, atraumatic. Eyes: Extraocular muscles are intact. Pupils are equal, round and reactive to light and accommodation. Ears: No lesions. Nose appeared normal. Throat: No exudate or erythema. NECK: Supple. No JVD, no carotid bruit. No lymphadenopathy or thyromegaly. LUNGS: Decreased breath sounds but clear to auscultation, seems to be somewhat better. Percussion note normal. Chest symmetrical. HEART: S1, S2, no S3. No murmurs. No cyanosis or clubbing. No ascites. Pulses: Dorsalis pedis and posterior tibial pulses +1 to +2 both sides. ABDOMEN: Soft. Nontender. Bowel sounds active. No CVA tenderness. No mass felt. EXTREMITIES: No edema. Full range of motion of all extremities, equal. NEUROLOGIC: No focal deficit. Cranial nerves II through XII are grossly intact. No headache, no double vision or headache. SKIN: Not dry. Intact. Turgor - normal. LYMPHATIC: No palpable lymph nodes/no lymphedema. MUSCULOSKELETAL: Normal joints with no swelling. Muscle tone is normal. ASSESSMENT: 1. CHF, STAGE 3 TO 4, STABLE; REFRACTORY CHF WITH AGGRESSIVE DIURETIC THERAPY HER KIDNEY FUNCTIONS BECOME ABNORMAL. DISCUSSED WITH THE PATIENT. PROGRESS IS POOR. 2. MORBID OBESITY WITH BMI OF 49 SEEMS TO BE THE BIG PROBLEM, VORACIOUS APPETITE. CONDITION: Stable TIME SPENT: More than 30 minutes. Plan and coordination of the patient's care discussed in the presence of nurse. JOSE
--- NOTE | 2017-04-19 09:22 | PN ---
DATE OF SERVICE: 04/13/17 SUBJECTIVE: 81-year-old white female was seen with nurse practitioner. The patient has CHF, bronchitis which seems to have resolved. The patient will be discharged home on Prednisone. CBC and CMP will be repeated. The patient's creatinine fluctuates between 1.6 and 1.9, the same as BUN. The patient has multiple medical problems. Prognosis is poor. The biggest problem is her BMI which is 49 and she is least motivated to do anything. She loves to eat and has a voracious appetite. TIME SPENT: More than 30 minutes. Plan and coordination of the patient's care discussed in the presence of nurse. JOSE
--- NOTE | 2017-04-19 09:24 | PN ---
CODING FOR BILLING 04/06/17 LEVEL 5 04/07/17 INTERMEDIATE 04/08/17 INTERMEDIATE 04/09/17 INTERMEDIATE 04/10/17 INTERMEDIATE 04/11/17 INTERMEDIATE 04/12/17 INTERMEDIATE 04/13/17 DISCHARGE MTDD
--- NOTE | 2017-05-04 11:53 | DS ---
DATE OF SERVICE: 04/13/17 FINAL DIAGNOSIS: 1. CONGESTIVE HEART FAILURE 2. RENAL FAILURE 3. COPD 4. ASTHMATIC BRONCHITIS 5. CHRONIC LEG EDEMA 6. CAD 7. HYPERTENSION 8. TIA, 2016 9. DIABETES MELLITUS, TYPE 2 10. DYSLIPIDEMIA 11. CHRONIC KIDNEY DISEASE 12. ANEMIA 13. RESTLESS LEG SYNDROME 14. ARTHRITIS 15. 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 OBESITY 18. ANKLE SURGERY 19. CARPAL TUNNEL REPAIR 20. LASER EYE SURGERY 21. NEVER SMOKER DISCHARGE INSTRUCTIONS: 1. Discharge to [facility]. 2. CBC, CMP in one week then monthly. 3. Accu-Cheks a.c. and h.s. 4. Continue oxygen at 1-2L. 5. PT/OT evaluation and treatment. The patient to continue to ambulate several times daily, short distances. MEDICATIONS AT DISCHARGE: Tylenol 650 mg p.o. q.4h p.r.n. ProAir HFA two puffs IH q.6h p.r.n. Zyloprim 100 mg p.o. daily ALIS Eliquis 2.5 mg p.o. b.i.d. ALIS Aspirin 81 mg p.o. daily with meal Lipitor 20 mg p.o. bedtime ALIS Bumex 1 mg p.o. 0600, 1600 ALIS Cardizem 60 mg p.o. b.i.d. ALIS Aricept 10 mg p.o. bedtime ALIS Drisdol 50,000 unit p.o. weekly ALIS Neurontin 100 mg p.o. t.i.d. ALIS Neurontin 300 mg p.o. t.i.d. ALIS Mucinex 600 mg p.o. b.i.d. ALIS Lantus 70 unit subcut bedtime ALIS Humulin R 0 unit subcut p.r.n. Pristiq 100 mg p.o. daily Ativan 0.5 mg p.o. b.i.d. ALIS Lopressor 25 mg p.o. b.i.d. with meal ALIS Remeron 15 mg p.o. bedtime ALIS Calcitriol 0.25 mcg p.o. daily ALIS Prilosec 20 mg p.o. q.d. a.c. ALIS Mirapex 1 mg p.o. daily ALIS Tobrex 0.3% two drop OP t.i.d. ALIS Ultram 50 mg p.o. q.8hr p.r.n. Calcitriol 0.25 mcg p.o. daily NEW PRESCRIPTIONS: Prednisone 5 mg daily for 5 days; start 04/14/2017 Xopenex 1.25 mg nebulizer treatment t.i.d. Pulmicort neb treatment at bedtime daily DIET INSTRUCTIONS: Consistent carbohydrates, regular texture, regular liquids. No added salt. Increased protein at breakfast. ACTIVITY: Up to bathroom for toileting; up to dining room for meals. Elevate legs at night and during the day to help reduce swelling. SMOKING: N/A DISEASE SPECIFIC EDUCATION: Leg edema Congestive heart failure Importance of increasing protein Importance of increasing activity HOSPITAL COURSE: This is an 81-year-old white female who is a resident of [facility]. She was recently hospitalized with pneumonia, hypoxia. She has a long history of COPD for which she has become oxygen dependent. She was discharged to the [place] [facility] to undergo physical and occupational therapy for strengthening. She also has a history of CHF. She also has a history of paroxysmal atrial fib which Eliquis was discontinued on her recent hospitalization in [place]. Prior to being admitted to the hospital here we had restarted Eliquis 2.5 mg b.i.d. in the [place] [facility]. She started exhibiting worsening shortness of breath and leg edema while at the [place] [facility]. She was brought to the emergency room. Chest x-ray revealed that she had pleural effusions. She had +2 pitting edema. Chest x-ray also showed she had some pulmonary edema. Her BNP was elevated. ABGs were abnormal with a p02 down to 54. She was admitted to the Special Care Unit. She was also in atrial fibrillation and in acute respiratory distress. She has a history of chronic kidney disease which is Stage 3. Her kidney function was significantly elevated on admission at 2.9 creatinine. She was admitted, given IV Lasix 40 mg started daily with daily CBC and CMP. We also started her on Zithromax 500 mg p.o. for abnormal chest x-ray, started on Solu-Cortef 125 mg IV q.8hr and increased her oxygen to 3L via nasal cannula. We started her on Xopenex neb treatments q.6hr scheduled. Despite aggressive diuretic therapy, her kidney function remained stable over the course of the hospital. We switched her IV Lasix to p.o. She had also been on Bumex. This was restarted and the p.o. Lasix was discontinued. She lost approximately 10 lbs while hospitalized. Upon discharge, she just had trace leg edema. Her shortness of breath is also thought to be worsened by anxiety. She tends to panic when she experienced moderate shortness of breath. We discussed with her her disease state and the fact that she has severe COPD and is now oxygen dependent and this will likely remain unchanged given her other disease processes such as CHF, atrial fib, hypertension, kidney disease. Prior to hospitalization she had been on a tapering dose of p.o. steroids. Over the course of several days we tapered her IV steroids down and send will send her back to the [place] [facility] with Prednisone 20 mg b.i.d. times 5 days and then 20 mg daily times 5 days. She will also continue Keflex 500 mg t.i.d. for the next 5 days. Her Bumex will resume what it had been. She is instructed to keep her legs elevated. She will be placed on a low sodium diet. She is encouraged to drink plenty of fluids and also encouraged to get up and walk around as she does like to remain sedentary, use the bedside commode rather than get up to use the restroom. She is to wear oxygen at all times. Repeat chest x-ray showed improvement in pleural effusions. Again, her leg edema has significantly improved and was trace, which had been +2 on admission. On day of discharge, lung sounds were clear and equal but diminished. Her atrial fibrillation has remained controlled while she is here. She will continue on the Eliquis. We will follow up with her in the [place] [facility]. She will have CBC and CMP in one week. She is discharged in stable condition. TIME SPENT: More than 60 minutes. JOSE
== END 2017-04-13 13:10 | DRG 292 ==
LOC: ED 15:18 → SCU 17:57
PROVIDERS: ADMIT Internal Medicine; ATTEND Internal Medicine
DX: I50.1 Left ventricular failure, unspecified (principal); N17.9 Acute kidney failure, unspecified; Z68.42 Body mass index [BMI] 45.0-49.9, adult; J91.8 Pleural effusion in other conditions classified elsewhere; J44.9 Chronic obstructive pulmonary disease, unspecified; R06.03 Acute respiratory distress; N18.3 Chronic kidney disease, stage 3 (moderate); R06.02 Shortness of breath; E11.9 Type 2 diabetes mellitus without complications; I48.0 Paroxysmal atrial fibrillation; I12.9 Hypertensive chronic kidney disease with stage 1 through stage 4 chronic kidney disease, or unspecified chronic kidney disease; E11.22 Type 2 diabetes mellitus with diabetic chronic kidney disease; I42.0 Dilated cardiomyopathy; I25.10 Atherosclerotic heart disease of native coronary artery without angina pectoris; I10 Essential (primary) hypertension; E66.01 Morbid (severe) obesity due to excess calories; G30.0 Alzheimer's disease with early onset; E78.5 Hyperlipidemia, unspecified; D64.9 Anemia, unspecified; G25.81 Restless legs syndrome; M19.90 Unspecified osteoarthritis, unspecified site; F41.8 Other specified anxiety disorders; F02.80 Dementia in other diseases classified elsewhere, unspecified severity, without behavioral disturbance, psychotic disturbance, mood disturbance, and anxiety; Z98.890 Other specified postprocedural states; Z99.81 Dependence on supplemental oxygen; Z79.4 Long term (current) use of insulin; Z79.01 Long term (current) use of anticoagulants; Z86.73 Personal history of transient ischemic attack (TIA), and cerebral infarction without residual deficits
CPT/HCPCS: 36415; 80053; 82803; 82962; 83880; 84484; 85008; 85025; 87081; 87502; 93005; 93010; 94640; 96365; 96375; 97802; 99223; 99232; 99239; 99284

== ENCOUNTER 2017-05-25 12:52 | Inpatient (IN) ==
[2017-05-25] MEDS ORDERED: VISTARIL INJ IM PRN (13:16)
[2017-05-25] MEDS ORDERED: ATROPINE SULFATE PFS IVP PRN (13:16)
[2017-05-25] MEDS ORDERED: MORPHINE 4 MG/ML VIAL IVP PRN (13:16)
[2017-05-25] MEDS ORDERED: NITROSTAT SL PRN (13:16)
[2017-05-25] MEDS ORDERED: TYLENOL PO PRN (13:16)
[2017-05-25] MEDS ORDERED: LASIX IVP STA (13:18)
[2017-05-25 13:59] VITALS: BMI 51.8
--- NOTE | 2017-05-25 14:38 | DI ---
EXAM: CHEST FRONTAL VIEW HISTORY: Shortness of breath. COMPARISON: 04/12/2017 FINDINGS: Prominent heart size is stable. No acute infiltrates are seen. No vascular congestion. T here is no consolidation, visible pleural fluid or pneumothorax. Bones reveal no acute fracture. IMPRESSION: No acute cardiopulmonary process.
[2017-05-25] MEDS ORDERED: ANTIVERT PO PRN (16:47)
[2017-05-25] MEDS ORDERED: PROAIR HFA IH PRN (16:47)
[2017-05-25] MEDS ORDERED: BUMEX PO SCH (17:00)
[2017-05-25] MEDS: XOPENEX 1.25 MG NEB SCH (17:12)
[2017-05-25] MEDS ORDERED: DEXTROSE 5%-1/2NS IV SOLUTION 1,000 ML IV SCH (17:30)
[2017-05-25] MEDS ORDERED: DECADRON 4 MG/ML SDV IM STA (17:54)
[2017-05-25] MEDS ORDERED: NON-FORMULARY MEDICATION (Apixaban [Eliquis] 2.5 MG) PO SCH (21:00)
[2017-05-25] MEDS ORDERED: NON-FORMULARY MEDICATION (Gabapentin [Gabapentin] 400 MG) PO SCH (21:00)
[2017-05-25] MEDS: LOPRESSOR PO SCH (21:14)
[2017-05-25] MEDS: NEURONTIN PO SCH ×2 (21:14→21:16)
[2017-05-25] MEDS: REMERON PO SCH (21:15)
[2017-05-25] MEDS: ARICEPT PO SCH (21:15)
[2017-05-25] MEDS: LIPITOR PO SCH (21:15)
[2017-05-25] MEDS: ATIVAN PO SCH (21:15)
[2017-05-25] MEDS: MIRAPEX PO SCH (21:15)
[2017-05-25] MEDS: CARDIZEM PO SCH (21:15)
[2017-05-25] MEDS: ELIQUIS PO SCH (21:16)
[2017-05-25] MEDS: HUMULIN R SUBCUT PRN (21:17)
[2017-05-25] MEDS: LANTUS SUBCUT SCH (21:18)
[2017-05-25] MEDS ORDERED: XOPENEX 1.25 MG NEB SCH (22:00)
[2017-05-26] MEDS: XOPENEX 1.25 MG NEB SCH ×5 (00:06→23:00)
[2017-05-26] MEDS: ULTRAM PO PRN (03:00)
[2017-05-26] MEDS: HUMULIN R SUBCUT PRN ×4 (05:55→21:28)
[2017-05-26] MEDS: PROTONIX PO SCH (05:56)
[2017-05-26] MEDS ORDERED: LASIX IVP ONE (06:30)
[2017-05-26] MEDS ORDERED: ASPIRIN EC PO SCH (08:00)
[2017-05-26] MEDS: NEURONTIN PO SCH ×6 (08:51→21:29)
[2017-05-26] MEDS: LOPRESSOR PO SCH ×2 (08:52→21:29)
[2017-05-26] MEDS: PRISTIQ ER PO SCH (08:52)
[2017-05-26] MEDS: CARDIZEM PO SCH ×2 (08:52→21:30)
[2017-05-26] MEDS: NORVASC PO SCH (08:52)
[2017-05-26] MEDS: ZYLOPRIM PO SCH (08:52)
[2017-05-26] MEDS: ATIVAN PO SCH ×2 (08:52→21:29)
[2017-05-26] MEDS: MIRAPEX PO SCH ×3 (08:53→21:29)
[2017-05-26] MEDS: ELIQUIS PO SCH ×2 (08:53→21:30)
[2017-05-26] MEDS: NON-FORMULARY MEDICATION (Calcitriol [Calcitriol] 0.25 MCG) PO SCH (08:59)
[2017-05-26] MEDS ORDERED: MIRAPEX PO SCH (09:00)
[2017-05-26] MEDS ORDERED: DECADRON 4 MG/ML SDV IM ONE (09:00)
[2017-05-26] MEDS ORDERED: DRISDOL PO SCH (09:00)
[2017-05-26] MEDS ORDERED: NON-FORMULARY MEDICATION (Cholecalciferol (Vitamin D3) [Vitamin D3] 50,000 UNIT) PO SCH (09:00)
[2017-05-26] MEDS ORDERED: NON-FORMULARY MEDICATION (Desvenlafaxine Succinate [Pristiq] 100 MG) PO SCH (09:00)
--- NOTE | 2017-05-26 10:40 | RS.SLPCNOT ---
Speech Case Note Date of Note: 05/26/17 Title: Speech consult Note: GLOVE OPERATOR communicated with nursing staff. RN reported no lung congestion or overt s/s of aspiration at the bedside. Pt has a good appetite and does not complain of swallowing difficulty with food textures. Pt reported occasional regurgitation of water. GLOVE OPERATOR did not exam pt with sips of water, however no bedside evaluation needed at this time. If pt has increased lung congestion or consistent reports of overt s/s of aspiration at the bedside, then RN to request formal Bedside swallow evaluation. At this time, pt with minimal risk for aspiration.
--- NOTE | 2017-05-26 12:43 | PCM.PROG ---
Attending Provider: ATTENDING PROVIDER: Dr. PAULY HANNAH DATE OF SERVICE: 05/26/17 SUBJECTIVE: This 82 year old WHITE/ F was hospitalized 05/25/17. The patient is hospitalized with fluid retention and leg edema. She has renal azotemia/acute renal failure likely seems to be from chronic kidney disease on top of aggressive diuretic therapy at home for leg edema that she has, which is dependent. The dependent part is from lung disease, heart disease and salt intake. The patient is a voracious eater, doesn't watch her diet. The edema seems to be less than yesterday. REVIEW OF SYSTEMS: (all negative at rest) CONSTITUTIONAL: No night sweats. No fatigue, malaise, lethargy. No fever or chills. HEENT: Eyes: No visual changes. No eye pain. No eye discharge. ENT: No runny nose. No epistaxis. No sinus pain. No odynophagia. No congestion. RESPIRATORY: No cough, no congestion. No hemoptysis. No shortness of breath. CARDIOVASCULAR: No angina symptoms. No CHF symptoms. No atypical chest pain for CAD. No palpitations. No orthopnea.. GASTROINTESTINAL: No abdominal pain. No nausea or vomiting. No diarrhea or constipation. No hematemesis. No hematochezia. GENITOURINARY: Rosen catheter in place. No urgency. No frequency. No dysuria. No hematuria. No obstructive symptoms. No discharge. No pain. No significant abnormal bleeding. MUSCULOSKELETAL: No musculoskeletal pain; no joint swelling. NEUROLOGICAL: Awake, alert, oriented to time, place and person. No headache. No neck pain. No syncope. No seizures. No dizziness. PSYCHIATRIC: Not anxious. No depression. No suicidal thoughts. No homicidal thoughts. SKIN: No rash. No lesions. No wounds. ENDOCRINE: No unexplained weight loss. No weight gain. HEMATOLOGIC/LYMPHATIC: No anemia. No purpura. No petechiae. No prolonged or excessive bleeding. No palpable lymph nodes. PHYSICAL EXAMINATION: GENERAL: The patient is awake, alert and oriented, lying in bed in no distress. VITAL SIGNS: Temperature 97.8 F, Pulse 56, Respiratory Rate 24, BP 131/48, Pulse Ox 96% HEENT: Head normocephalic, atraumatic. Eyes: Extraocular muscles are intact. Pupils are equal, round and reactive to light and accommodation. Ears: No lesions. Nose appeared normal. Throat: No exudate or erythema. NECK: Supple. No JVD, no carotid bruit. No lymphadenopathy or thyromegaly. LUNGS: Decreased breath sounds. Clear to auscultation. Percussion note normal. Chest symmetrical. HEART: Distant heart sounds. S1, S2, no S3. No murmurs. No cyanosis or clubbing. No ascites. Pulses: Dorsalis pedis and posterior tibial pulses +2 both sides. ABDOMEN: Soft. Non-tender. Bowel sounds active. No CVA tenderness. No mass felt. EXTREMITIES: +2 pitting edema. Full range of motion of all extremities, equal. NEUROLOGIC: No focal deficit. Cranial nerves II through XII are grossly intact. No headache, no double vision or headache. SKIN: Warm and dry. Intact. Turgor-normal. LYMPHATIC: No palpable lymph nodes/no lymphedema. MUSCULOSKELETAL: Normal joints with no swelling. Muscle tone is normal. LAB REVIEW: 05/26/17 04:30 05/26/17 04:30 05/26/17 04:30: Sodium 140, Potassium 4.6, Chloride 100, Carbon Dioxide 27, Anion Gap 17.6, BUN 104 H*, Creatinine 2.95 H, Estimated GFR (MDRD) 15.00, BUN/ Creatinine Ratio 35.25, Glucose 353 H D, Calcium 9.0, Total Bilirubin 0.3, AST 17, ALT 15, Alkaline Phosphatase 96, Total Protein 6.1, Albumin 2.9 L, Globulin 3.2, Albumin/Globulin Ratio 0.91 05/26/17 04:30: WBC 8.47, RBC 3.39 L, Hgb 8.6 L, Hct 27.8 L, MCV 82.0, MCH 25.4 L, MCHC 30.9 L, RDW Coeff of Kwabena 20.5 H, Plt Count 269, Immature Gran % (Auto) 0.8, Neut % (Auto) 91.3, Lymph % (Auto) 6.4 L, Douglas % (Auto) 1.3, Eos % (Auto) 0.0, Baso % (Auto) 0.2, Immature Gran # (Auto) 0.1, Neut # (Auto) 7.7 H, Lymph # (Auto) 0.5 L, Douglas # (Auto) 0.1 L, Eos # (Auto) 0.0, Baso # (Auto) 0.0 05/25/17 21:17: Total Creatine Kinase 47, Troponin I 0.0130 05/25/17 15:10: Urine Color Yellow, Urine Clarity Clear, Urine pH 5.0, Ur Specific [place] 1.015, Urine Protein Negative, Urine Glucose (UA) Negative, Urine Ketones Negative, Urine Blood Negative, Urine Nitrite Negative, Urine Bilirubin Negative, Urine Urobilinogen 0.2, Ur Leukocyte Esterase Trace, Urine Microscopic RBC 0-2, Urine Microscopic WBC 2-5, Ur Squamous Epith Cells 5-10, Ur Transition Epith Cell 0-2, Ur Renal Epithelial Cell 2-5, Urine Bacteria Trace 05/25/17 13:30: B-Natriuretic Peptide 524 H 05/25/17 13:30: Sodium 144, Potassium 4.3, Chloride 101, Carbon Dioxide 29, Anion Gap 18.3, BUN 103 H*, Creatinine 2.93 H, Estimated GFR (MDRD) 15.00, BUN/ Creatinine Ratio 35.15, Glucose 64 L, Calcium 9.4, Total Bilirubin 0.3, AST 15, ALT 14, Alkaline Phosphatase 98, Total Creatine Kinase 49, Troponin I 0.0160, Total Protein 6.7, Albumin 3.2 L, Globulin 3.5, Albumin/Globulin Ratio 0.91 05/25/17 13:30: WBC 9.70, RBC 3.75 L, Hgb 9.4 L, Hct 30.9 L, MCV 82.4, MCH 25.1 L, MCHC 30.4 L, RDW Coeff of Kwabena 20.7 H, Plt Count 304, Immature Gran % (Auto) 0.6, Neut % (Auto) 69.4, Lymph % (Auto) 18.6, Douglas % (Auto) 8.2, Eos % (Auto) 2.6, Baso % (Auto) 0.6, Immature Gran # (Auto) 0.1, Neut # (Auto) 6.7, Lymph # ( Auto) 1.8, Douglas # (Auto) 0.8, Eos # (Auto) 0.3, Baso # (Auto) 0.1, Polychromasia 1+, Hypochromasia 1+, Anisocytosis 1+, Microcytosis 1+ 05/25/17 13:16: Puncture Site Rr, O2 Saturation 88.0 L, ABG pH 7.407, ABG pCO2 49.5 H, ABG pO2 55.0 L*, ABG HCO3 31.2 H, ABG Total CO2 33 H, ABG Base Excess 7 H, Jacob Test +, FiO2 % 21.0 ASSESSMENT: 1. LEG EDEMA, SEEMS LESS THAN YESTERDAY 2. BLOOD SUGARS RUNNING HIGH DUE TO STEROIDS AND UNCONTROLLED DIABETES MELLITUS PLAN: 1. Lasix 40 mg IV q.a.m. 2. Diet discussed with patient - advised to cut down on salt and food intake. 3. IV fluids 50 cc's. 4. Elevate the legs. 5. Lantus with sliding scale 6. Advised to cut down on salt and food intake 7. Slow IV hydration through IV fluids, will watch for fluid overload 8. Creatinine, BUN 9. Monitor hemoglobin and hematocrit 10. D/C Bumex and Zaroxolyn Plan and coordination of the patient's care discussed in the presence of Counter Help and nurse. CONDITION: Stable SCRIBED BY: MARIA ESTHER SKAGGS Cost Accountant scribed while in presence of service performed by Dr. PAULY HANNAH on 05/26/17 ([id number])
--- NOTE | 2017-05-26 13:32 | HP ---
DATE OF SERVICE: 05/25/17 REASON FOR HOSPITALIZATION/HISTORY OF PRESENT ILLNESS: 82 year old white female hospitalized with fluid retention. The patient's review of CMP showed creatinine of 2.9, BUN 103 indicating renal azotemia/acute renal failure and also had acute respiratory failure with pO2 of 55 with pCo2 of 49, pH 7.40 with oxygen saturation 88% on room air. U/A was negative and chest x-ray showed no acute findings. Gained 17 pounds. Shortness of breath. Decreased urinary output. Only has O2 at night but needing to weat it in daytime. Weak. PAST MEDICAL HISTORY: Atrial fibrillation History of gout Dyslipidemia Dementia Depression CHF GERD Vertigo Restless leg Diabetes Mellitus type 2 COPD Neuropathy PAST SURGICAL HISTORY: Carpel Tunnel Bilateral ankle Eye-cataract REVIEW OF SYSTEMS: CONSTITUTIONAL: No fever, Fatigue. HEENT: No sinus drainage, no sore throat. RESPIRATORY: Cough, no congestion. CARDIOVASCULAR: No atypical chest pain for coronary artery disease. No angina , CHF symptoms, palpitations. Shortness of breath. GASTROINTESTINAL: No melena or abdominal pain. No GERD. GENITOURINARY: No hematuria, no prostatism, no polyuria. RN BUILDING: No blackout, no dizziness, no headache, no double vision. GAIT: Wheelchair MUSCULOSKELETAL: Osteoarthritis pain, no joint swelling. ENDOCRINE: No weight loss, Weight gain. SKIN: Not dry, no rash. PSYCHIATRIC: Anxious, no depression, no suicidal thoughts, no homicidal thoughts. SOCIAL HISTORY: Marital Status: . Alcohol Usage: No. Tobacco Usage: No. FAMILY HISTORY: Father Mother MEDICATIONS: Lantus 60 units Protonix 40mg daily Novolog 100 units SUBQUE Mirapex 1mg Pristiq ER 100mg Po daily Calcitriol 0.25mg PO daily Allopurinol 100mg PO daily Metoprolol 25mg twice a day Gabapentin 400mg three times a day Eliquis 2.5mg twice a day Ativan 0.5mg twice a day Tessalon Perles 100mg PRN Bumex 1mg twice a day Tramadol 50mg three times a day Diltazem 60mg twice a day Amlodipine 5mg daily Antivert 25mg three times a day Atorvastatin 20mg Aricept 10mg HS Levalbuterol 1.25mg Three times a day Budesonide 0.5/2ml HS ALLERGIES: Penicillin Sulfa PHYSICAL EXAMINATION: V/S: Pulse 52, blood pressure 130/64, pulse ox 93% weight 262.6 at home. GENERAL APPEARANCE: Oriented times three. HEENT: Normal. Pale and clammy. NECK: No JVP, no bruits. RESPIRATORY: Decreased breath sounds bilateral creps. CARDIOVASCULAR: S1, S2, no S3, irregular, no murmurs. No cyanosis, clubbing. No ascites. GI/ABDOMEN: No tenderness. Bowel sounds are active. EXTREMITIES: +2 bilateral edema, pulses +1, equal. RN BUILDING: Deep tendon reflexes, sensory, motor and gait all normal. ASSESSMENT: 1. Leg edema 2. Shortness of breath 3. Atrial gculmptvrchx-yqxrqqlopr-Aatkqrn 4. History of gout 5. Dyslipidemia 6. CHF 7. Leg edema 8. B12 deficiency 9. Depression/Anxiety 10.Dementia 11.Neuropathy 12.Osteoarthritis 13.Diabetes Mellitus type 2 14.COPD 15.GERD 16.Vertigo 17.Restless leg syndrome PLAN: 1. Admit 2. IV Lasix 40mg now and tomorrow 3. ABG's now 4. Routine telemetry orders 5. CBC and CMP today and daily 6. Chest x-ray now 7. Low sodium/ADA diet 8. Elevate legs 9. O2 1-2 liters nasal cannula PRN 10.Continue home medication 11.Sliding scale insulin 12.Xopenex NEBS Q 6 hours scheduled. TIME SPENT: More than 70 minutes. MTDD
--- NOTE | 2017-05-26 15:40 | RS.OTINEVL ---
Subjective - Patient information Date of Evaluation: 05/26/17 Date of Arrival on Unit: 05/25/17 Admitted From:: Emergency Dept Usual Living Arrangement: with daughter Viola Living Arrangement Comments: Pt lives at home with her daughter. Pt has a rolling walker and has a ramp to enter her home. Home Environment: Ramp Medical History: Hypertension, CVA/TIA, COPD, Diabetes, CHF Medical History Comments:: Pt has had a fractured left ankle, CTS, eye laser surgery. Surgical History Comments:: Left ankle surgery, laser eye surgery, Subjective Information/ Patient Comments:: "I am making a mess." "I just got back in bed." - Level of function Prior to this admission, the patient could do the following:: Partially Dependent Ambulation Abilities prior to this admission: Pt was walking with a rolling walker. Pt lives with her daughter. Pt helps her with self care management. Current Level of Function: Partially Dependent Current Equipment Used at Home: rolling walker, wheelchair, concentrator home oxygen at night-2L, glucometer, bedside commode, hospital bed Pain Assessment - Pain Pain Score: 5 Pain Alleviating Factors: Sitting Interventions - Objective Patient Orientation: Person, Place, Situation Current Interventions: IV's, Oxygen, Telemetry Observation: Pt is SOA, has nonpitting edema of BLE. Pt is complaining of pain in with the catheter. The nurse was notified of Patient complaint. Pt is moderate assistan ce of 2 to complete functional transfer from EOB to Chair. Interventions - ROM Right Upper Extremity AROM: WFL's Left Upper Extremity AROM: WFL's - Strength Right Upper Extremity Strength: Normal Left Upper Extremity Strength: Normal - Sensation Right Upper Extremity Sensation: Intact/Normal Left Upper Extremity Sensation: Intact/Normal Balance - Sitting Balance Static Sitting Balance: Poor Dynamic Sitting Balance: Poor - Standing Balance Static Standing Balance: Poor Dynamic Standing Balance: Poor ADL Skills - Self Feeding Self Feeding: Independent - Grooming Grooming: Min Assist - Bathing Bathing UE: Mod Assist Bathing LE: Max Assist, 1 person assist - Dressing Dressing UE: Max Assist, 1 person assist Dressing LE: Max Assist, 1 person assist - Toilet Management Toileting Management: Mod Assist, 1 person assist, 2 person assist Functional Mobility - Bed Mobility Rolling R/L: Supervision Scooting: CGA Supine to Sit: Mod Assist, 2 person assist Sit to Supine: Mod Assist, 2 person assist - Transfers Sit to Stand: Mod Assist, 2 person assist Stand to Sit: Mod Assist, 2 person assist Stand Pivot Transfers: Mod Assist, 2 person assist - Ambulation Weight Bearing Status: WBAT Assistive Device Used: Rolling Walker Assistance needed with Ambulation: Mod Assist, 2 person assist - Safety Awareness Safety Awareness: Good TARSHA INDEX SCORE: . Additional Treatment Performed - Additional units charged OT 1 to 1 Activity: 1 - Time with patient Total treatment time: 18 Activities Patient Interests:: Reading Books/Magazines, Watching Television, Puzzles/Games Comments:: Pt enjoys coloring. Patient Education Patient Education: Education of diagnosis, Home Exercise Program, Home Safety Teaching Recipient: Patient Teaching Methods: Discussion Assessment Problem List:: Decreased level of function, Requires training/education, Decreased safety/Risk of falls, Weakness, Pain limits previous level of function Rehab Potential: Good Further Therapy Indicated?: Yes Evaluation Complexity: HISTORY: Medium, EXAM OF BODY SYSTEMS: Medium, CLINICAL DECISION MAKING: Medium Short Term Goals - Goals GOAL 1: Pt to tolerate 10 minutes of standing activity, rest PRN. Goal to be met by: 06/02/17 GOAL 2: Pt to complete sink level ADLS SBA. Goal to be met by: 06/02/17 GOAL 3: Pt to increase strength to 4+/5 Goal to be met by: 06/02/17 Investment Accounting Clerk Goals GOAL 1: Pt to tolerate 15 minutes of standing activity, rest PRN. Goal to be met by: 06/07/17 GOAL 2: Pt to complete sink level ADLS Mod-I. Goal to be met by: 06/07/17 GOAL 3: Pt to increase strength to 5/5 Goal to be met by: 06/07/17 Plan Plan of Care: Therapeutic EX, Neuromuscular Re-Educ, Therapeutic Activity, Self- Care/Home Management Frequency of Treatment: 1-2 X day, as tolerated Duration of Treatment: 2 Weeks Anticipated Discharge Destination: Home Has the Physician been added for Co-signature?: Yes
[2017-05-26] MEDS: LANTUS SUBCUT SCH (21:28)
[2017-05-26] MEDS: LIPITOR PO SCH (21:29)
[2017-05-26] MEDS: REMERON PO SCH (21:29)
[2017-05-26] MEDS: ARICEPT PO SCH (21:29)
[2017-05-27] MEDS: XOPENEX 1.25 MG NEB SCH ×3 (05:01→21:32)
[2017-05-27] MEDS: HUMULIN R SUBCUT PRN ×4 (06:41→21:56)
[2017-05-27] MEDS: LASIX IVP SCH (06:42)
[2017-05-27] MEDS: PROTONIX PO SCH (06:43)
[2017-05-27] MEDS: MIRAPEX PO SCH ×3 (08:57→21:59)
[2017-05-27] MEDS: LOPRESSOR PO SCH ×2 (08:58→21:59)
[2017-05-27] MEDS: ATIVAN PO SCH ×2 (08:59→21:59)
[2017-05-27] MEDS: ZYLOPRIM PO SCH (08:59)
[2017-05-27] MEDS: PRISTIQ ER PO SCH (09:00)
[2017-05-27] MEDS: CARDIZEM PO SCH ×2 (09:00→22:00)
[2017-05-27] MEDS ORDERED: DECADRON 4 MG/ML SDV IM SCH (09:00)
[2017-05-27] MEDS: NORVASC PO SCH (09:01)
[2017-05-27] MEDS: NEURONTIN PO SCH ×6 (09:02→22:00)
[2017-05-27] MEDS: ELIQUIS PO SCH ×2 (09:04→22:00)
--- NOTE | 2017-05-27 09:04 | PCM.PROG ---
Attending Provider: ATTENDING PROVIDER: Dr. PAULY HANNAH This patient is seen with Yeimi Luong, Nurse Practitioner. DATE OF SERVICE: 05/27/17 SUBJECTIVE: This 82 year old WHITE/ F was hospitalized 05/25/17. The patient is sitting in chair, alert. She has been coughing through the night. She still has leg edema. REVIEW OF SYSTEMS: CONSTITUTIONAL: No night sweats. No fatigue, malaise, lethargy. No fever or chills. HEENT: Eyes: No visual changes. No eye pain. No eye discharge. ENT: No runny nose. No epistaxis. No sinus pain. No odynophagia. No congestion. RESPIRATORY: Cough and congestion. No hemoptysis. Positive for shortness of breath. CARDIOVASCULAR: No angina symptoms. No CHF symptoms. No atypical chest pain for CAD. No palpitations. No orthopnea.. GASTROINTESTINAL: No abdominal pain. No nausea or vomiting. No diarrhea or constipation. No hematemesis. No hematochezia. GENITOURINARY: No urgency. No frequency. No dysuria. No hematuria. No obstructive symptoms. No discharge. No pain. No significant abnormal bleeding. MUSCULOSKELETAL: Leg edema. No musculoskeletal pain; no joint swelling. NEUROLOGICAL: Awake, alert, oriented to time, place and person. No headache. No neck pain. No syncope. No seizures. No dizziness. PSYCHIATRIC: Not anxious. No depression. No suicidal thoughts. No homicidal thoughts. SKIN: No rash. No lesions. No wounds. ENDOCRINE: No unexplained weight loss. No weight gain. HEMATOLOGIC/LYMPHATIC: No anemia. No purpura. No petechiae. No prolonged or excessive bleeding. No palpable lymph nodes. PHYSICAL EXAMINATION: GENERAL: The patient is awake, alert and oriented, sitting in chair in no distress. VITAL SIGNS: Temperature 97.8 F, Pulse 60, Respiratory Rate 18, BP 133/61, Pulse Ox 94% HEENT: Head normocephalic, atraumatic. Eyes: Extraocular muscles are intact. Pupils are equal, round and reactive to light and accommodation. Ears: No lesions. Nose appeared normal. Throat: No exudate or erythema. NECK: Supple. No JVD, no carotid bruit. No lymphadenopathy or thyromegaly. LUNGS: Diminished breath sounds. Clear to auscultation. Percussion note normal. Chest symmetrical. HEART: S1, S2, no S3. No murmurs. No cyanosis or clubbing. No ascites. Pulses: Dorsalis pedis and posterior tibial pulses +1 to +2 both sides. ABDOMEN: Soft. Non-tender. Bowel sounds active. No CVA tenderness. No mass felt. EXTREMITIES: 2+ pitting edema. Full range of motion of all extremities, equal. NEUROLOGIC: No focal deficit. Cranial nerves II through XII are grossly intact. No headache, no double vision or headache. SKIN: Not dry. Intact. Turgor-normal. LYMPHATIC: No palpable lymph nodes/no lymphedema. MUSCULOSKELETAL: Normal joints with no swelling. Muscle tone is normal. LAB REVIEW: 05/27/17 05:00 05/27/17 04:30 05/27/17 05:00: WBC 10.84 H, RBC 3.37 L, Hgb 8.5 L, Hct 27.3 L, MCV 81.0, MCH 25.2 L, MCHC 31.1 L, RDW Coeff of Kwabena 20.2 H, Plt Count 289, Immature Gran % ( Auto) 0.6, Neut % (Auto) 86.1, Lymph % (Auto) 7.5 L, [place] % (Auto) 5.7, Eos % ( Auto) 0.0, Baso % (Auto) 0.1, Immature Gran # (Auto) 0.1, Neut # (Auto) 9.3 H, Lymph # (Auto) 0.8, [place] # (Auto) 0.6, Eos # (Auto) 0.0, Baso # (Auto) 0.0 05/27/17 04:30: Sodium 137, Potassium 4.6, Chloride 97 L, Carbon Dioxide 29, Anion Gap 15.6, BUN 108 H*, Creatinine 3.01 H, Estimated GFR (MDRD) 15.00, BUN/ Creatinine Ratio 35.88, Glucose 312 H D, Calcium 9.3, Total Bilirubin 0.3, AST 10 L, ALT 14, Alkaline Phosphatase 87, Total Protein 6.2, Albumin 3.0 L, Globulin 3.2, Albumin/Globulin Ratio 0.94 05/26/17 20:54: Glucose 595 H* D ASSESSMENT: 1. LEG EDEMA, SEEMS LESS THAN YESTERDAY 2. BLOOD SUGARS RUNNING HIGH DUE TO STEROIDS AND UNCONTROLLED DIABETES MELLITUS 3. ACUTE ON CHRONIC RENAL FAILURE 4. COPD, OXYGEN DEPENDENT PLAN: 1. Decadron 4 mg IM 2. Xopenex t.i.d. eleazar 3. Lantus 80 at bedtime Plan and coordination of the patient's care discussed in the presence of Supervisor Blast Furnace Auxiliaries and nurse. CONDITION: Stable SCRIBED BY: MARIA ESTHER SKAGGS Lead Generation Representative scribed while in presence of service performed by Dr. Hannah/Yeimi Luong APRN on 05/27/17 ([id number])
[2017-05-27] MEDS: NON-FORMULARY MEDICATION (Calcitriol [Calcitriol] 0.25 MCG) PO SCH (09:05)
--- NOTE | 2017-05-27 11:44 | RS.PTINEVL ---
Subjective - Patient information Date of Evaluation: 05/27/17 Date of Arrival on Unit: 05/25/17 Admitted From:: Home Diagnosis: LE edema, dyspnea, Usual Living Arrangement: with daughter Viola Living Arrangement Comments: Pt lives at home with her daughter. Pt has a rolling walker and has a ramp to enter her home. Home Environment: Ramp Medical History: Hypertension, CVA/TIA, COPD, Diabetes, CHF, Arthritis (gout, OA ) Medical History Comments:: neuropathy, afib, bulging discs,CKD LATEX ALLERGY?: No Surgical History Comments:: Left ankle surgery, laser eye surgery, Medications: see chart Subjective Information/ Patient Comments:: pt c/o pain from prince cath. pt states she has been sitting up since 2 hours before breakfast and would like to walk and go back to bed. - Level of function Prior to this admission, the patient could do the following:: Partially Dependent Ambulation Abilities prior to this admission: daughters assisted with ADL's Current Level of Function: Partially Dependent Current Equipment Used at Home: rolling walker, wheelchair, concentrator home oxygen at night-2L, glucometer, bedside commode, hospital bed Interventions - Objective Patient Orientation: Person, Place, Time, Situation Current Interventions: IV's, Oxygen, Telemetry, Prince Catheter Observation: pt with 2+ pitting edema BLE Range of Motion - ROM Right Upper Extremity AROM: WFL's Left Upper Extremity AROM: WFL's Right Lower Extremity AROM: WFL's Left Lower Extremity AROM: WFL's Muscle Strength - Muscle Strength Right Upper Extremity Strength: Mild Weakness (grossly 4-/5) Left Upper Extremity Strength: Mild Weakness (grossly 4-/5) Right Lower Extremity Strength: Mild Weakness (hip flex 3+/5, knee flex/ext 4-/5 , ankle DF/PF 4-/5) Left Lower Extremity Strength: Mild Weakness (hip flex 3+/5, knee flex/ext 4-/5 , ankle DF/PF 4-/5) Sensation - Sensation Right Upper Extremity Sensation: Intact/Normal Left Upper Extremity Sensation: Intact/Normal Right Lower Extremity Sensation: Impaired Left Lower Extremity Sensation: Impaired (n/t B LE) Palpation Comments:: LE's are tender to palpation. Balance - Sitting Balance and Reactions Static Sitting Balance: Fair Dynamic Sitting Balance: Fair Sitting Equilibrium Reactions: Delayed Left, Delayed Right Sitting Protective Reactions: Delayed Left, Delayed Right - Standing Balance and Reactions Static Standing Balance: Poor Dynamic Standing Balance: Poor Standing Equilibrium Reactions: Delayed Left, Delayed Right Standing Protective Reactions: Delayed Left, Delayed Right - Comments Balance Assessment Comments: pt with flexed posture, and increased lat sway limiting balance. Functional Mobility - Bed Mobility Rolling R/L: Min Assist Scooting: Min Assist, 2 person assist Sit to Supine: Min Assist, Mod Assist, 2 person assist - Transfers Sit to Stand: Min Assist, 2 person assist Stand to Sit: Min Assist, 2 person assist - Safety Awareness Safety Awareness: Fair TARSHA INDEX SCORE: n/a Ambulation - Ambulation Assistive Device Used: Rolling Walker Orthotic/Prosthetic Device: No Distance: 20ft Assistance needed with Ambulation: CGA, 2 person assist Quality of Ambulation: CGA of 1 +1 for O2 Gait Deviations: Forward posture, Short stride, Deviates from path Ambulation Comments: pt required verbal cues for PLB as well as posture, Factors Affecting Ambulation: Decreased Balance, Breathing/O2 Saturation, Weakness, Decreased Safety, Limited Endurance Treatment time - Time with patient Total treatment time: 25 Patient Education - Education Patient Education: Activity Modification, Education of Plan of Care Teaching Recipient: Patient Teaching Methods: Discussion, Demonstration Assessment - Assessment Problem List:: Decreased level of function, Requires training/education, Decreased safety/Risk of falls, Weakness, Cognitive status limits abilities Rehab Potential: Good Further Therapy Indicated?: Yes Evaluation Complexity: HISTORY: Medium (COPD, CHF, OA, DM, ), EXAM OF BODY SYSTEMS: Medium (edema, strength, posture, balance, gait), CLINICAL PRESENTATION : Medium (evolving), CLINICAL DECISION MAKING: Medium Short Term Goals GOAL #1: pt demonstrate independence with bed mobility Goal to be met by: 05/30/17 GOAL #2: pt transfer sup to/from sit to/from stand min to CGA x 1 Goal to be met by: 05/30/17 GOAL #3: pt amb 75ft with rwx with CGA x 1 with no LOB Goal to be met by: 05/30/17 GOAL #4: Improve BLE strength 4 to 4+/5 Goal to be met by: 05/30/17 Coal Dumping Equipment Operator Goals GOAL #1: pt transfer sup to/from sit to/from stand CGA to SBA Goal to be met by: 06/01/17 GOAL #2: pt amb 125ft with rwx with no LOB with no rest periods Goal to be met by: 06/01/17 GOAL #3: pt independent with HEP Goal to be met by: 06/01/17 Plan Plan of Care: Therapeutic EX, Therapeutic Activity Other:: gait training Frequency of Treatment: 1-2 X day, as tolerated Duration of Treatment: 6 days Anticipated Discharge Destination: Home Has the Physician been added for Co-signature?: Yes
[2017-05-27] MEDS: ULTRAM PO PRN (14:36)
[2017-05-27] MEDS ORDERED: LANTUS SUBCUT SCH (21:00)
[2017-05-27] MEDS: REMERON PO SCH (21:59)
[2017-05-27] MEDS: ARICEPT PO SCH (21:59)
[2017-05-27] MEDS: LIPITOR PO SCH (21:59)
[2017-05-28] MEDS ORDERED: TUSSIONEX PO PRN (02:51)
[2017-05-28] MEDS: XOPENEX 1.25 MG NEB SCH (04:38)
[2017-05-28] MEDS: HUMULIN R SUBCUT PRN (06:10)
[2017-05-28] MEDS: LASIX IVP SCH (06:10)
[2017-05-28] MEDS: PROTONIX PO SCH (06:10)
--- NOTE | 2017-05-28 09:11 | DI ---
EXAM: Chest one view HISTORY: Increased shortness of air COMPARISON: 05/25/2017 TECHNIQUE: Single view of the chest was performed FINDINGS: Probable mild pulmonary vascular congestion. No definite airspace consolidation. There i s no pleural effusion or pneumothorax. The heart is enlarged, unchanged in size. The mediastinal co ntour is normal. There are no acute abnormalities of the bones. IMPRESSION: Cardiomegaly with probable mild pulmonary vascular congestion.
--- NOTE | 2017-05-28 09:13 | PCM.PROG ---
Attending Provider: ATTENDING PROVIDER: Dr. PAULY HANNAH This patient is seen with Yeimi Luong, Nurse Practitioner. DATE OF SERVICE: 05/28/17 SUBJECTIVE: This 82 year old WHITE/ F was hospitalized 05/25/17. The patient is sitting in chair, extremely short of breath, 02 sat 79 while sleeping. Poor urine output. REVIEW OF SYSTEMS: CONSTITUTIONAL: Weakness and fatigue. No night sweats. No malaise, lethargy. No fever or chills. HEENT: Eyes: No visual changes. No eye pain. No eye discharge. ENT: No runny nose. No epistaxis. No sinus pain. No odynophagia. No congestion. RESPIRATORY: No cough, no congestion. No hemoptysis. Shortness of breath. CARDIOVASCULAR: No angina symptoms. No CHF symptoms. No atypical chest pain for CAD. No palpitations. No orthopnea.. GASTROINTESTINAL: No abdominal pain. No nausea or vomiting. No diarrhea or constipation. No hematemesis. No hematochezia. GENITOURINARY: No urgency. No frequency. No dysuria. No hematuria. No obstructive symptoms. No discharge. No pain. No significant abnormal bleeding. MUSCULOSKELETAL: No musculoskeletal pain; no joint swelling. NEUROLOGICAL: Awake, alert, oriented to time, place and person. No headache. No neck pain. No syncope. No seizures. No dizziness. PSYCHIATRIC: Not anxious. No depression. No suicidal thoughts. No homicidal thoughts. SKIN: No rash. No lesions. No wounds. ENDOCRINE: No unexplained weight loss. No weight gain. HEMATOLOGIC/LYMPHATIC: No anemia. No purpura. No petechiae. No prolonged or excessive bleeding. No palpable lymph nodes. PHYSICAL EXAMINATION: GENERAL: The patient is awake, alert and oriented, sitting in chair in mild distress. VITAL SIGNS: Temperature 97.8 F, Pulse 53, Respiratory Rate 20, BP 126/51, Pulse Ox 92% HEENT: Head normocephalic, atraumatic. Eyes: Extraocular muscles are intact. Pupils are equal, round and reactive to light and accommodation. Ears: No lesions. Nose appeared normal. Throat: No exudate or erythema. NECK: Supple. No JVD, no carotid bruit. No lymphadenopathy or thyromegaly. LUNGS: Severely diminished breath sounds with bilateral rhonchi. Percussion note normal. Chest symmetrical. HEART: S1, S2, no S3. No murmurs. No cyanosis or clubbing. No ascites. Pulses: Dorsalis pedis and posterior tibial pulses +1 to +2 both sides. ABDOMEN: Soft. Non-tender. Bowel sounds active. No CVA tenderness. No mass felt. EXTREMITIES: +1 edema. Full range of motion of all extremities, equal. NEUROLOGIC: No focal deficit. Cranial nerves II through XII are grossly intact. No headache, no double vision or headache. SKIN: Not dry. Intact. Turgor-normal. LYMPHATIC: No palpable lymph nodes/no lymphedema. MUSCULOSKELETAL: Normal joints with no swelling. Muscle tone is normal. LAB REVIEW: 05/28/17 04:30 05/28/17 04:30 05/28/17 04:30: Sodium 136, Potassium 5.1, Chloride 96 L, Carbon Dioxide 28, Anion Gap 17.1, BUN 119 H*, Creatinine 3.35 H, Estimated GFR (MDRD) 13.00, BUN/ Creatinine Ratio 35.52, Glucose 438 H D, Calcium 9.4, Total Bilirubin 0.3, AST 10 L, ALT 16, Alkaline Phosphatase 85, Total Protein 6.5, Albumin 3.2 L, Globulin 3.3, Albumin/Globulin Ratio 0.97 05/28/17 04:30: WBC 12.02 H, RBC 3.37 L, Hgb 8.6 L, Hct 27.5 L, MCV 81.6, MCH 25.5 L, MCHC 31.3 L, RDW Coeff of [place]ab[place] 20.3 H, Plt Count 309, Immature Gran % ( Auto) 0.8, Neut % (Auto) 85.8, Lymph % (Auto) 6.9 L, [place] % (Auto) 6.4, Eos % ( Auto) 0.0, Baso % (Auto) 0.1, Immature Gran # (Auto) 0.1, Neut # (Auto) 10.3 H, Lymph # (Auto) 0.8, [place] # (Auto) 0.8, Eos # (Auto) 0.0, Baso # (Auto) 0.0 ASSESSMENT: 1. MILD RESPIRATORY DISTRESS 2. LEG EDEMA, SEEMS LESS THAN YESTERDAY 3. BLOOD SUGARS RUNNING HIGH DUE TO STEROIDS AND UNCONTROLLED DIABETES MELLITUS 4. ACUTE ON CHRONIC RENAL FAILURE 5. COPD, OXYGEN DEPENDENT 6. MILD RESPIRATORY DISTRESS PLAN: 1. Repeat chest x-ray 2. ABG STAT 3. Increase 02 to 3L 4. The patient wants full code Plan and coordination of the patient's care discussed in the presence of Tool And Cutter Grinder and nurse. SCRIBED BY: MARIA ESTHER SKAGSG Housecleaner Floor scribed while in presence of service performed by Dr. Hannah/Yeimi Luong APRN on 05/28/17 ([id number])
--- NOTE | 2017-05-28 09:20 | PN ---
DATE OF SERVICE: 05/25/17 SUBJECTIVE: The patient was hospitalized room 116 through the office with fluid retention. The patient had taken a lot of diuretics in order to get leg swelling and generalized swelling off so her kidney functions are markedly abnormal. She seems to be in renal Azotemia/acute renal failure. PLAN: 1. Give IV Lasix 2. Leg elevation 3. Discontinue Zaroxolyn and Bumex 4. Given 1 cc Decadron today and 1 cc in the morning 5. Elevate the legs 6. The patient's problem is that she loves to eat and eats a lot. She has voracious appetite and eats a lot of salt. She is massively obese and has multiple medical problems. She is noncompliant of her medications. She is a difficult patient to treat. TIME SPENT: More than 30 minutes. Plan and coordination of the patient's care discussed in the presence of nurse. JOSE
[2017-05-28 10:28] VITALS: BP 139/74; TEMP 98.4
--- NOTE | 2017-05-28 11:06 | DS ---
DATE OF SERVICE: 05/28/17 FINAL DIAGNOSIS: 1. RENAL AZOTEMIA/ACUTE RENAL FAILURE 2. RESPIRATORY FAILURE 3. HISTORY OF ASTHMATIC BRONCHITIS WITH CHRONIC LUNG DISEASE 4. HISTORY OF CHF 5. HISTORY OF CORONARY ARTERY DISEASE 6. DIABETES MELLITUS TYPE 2 7. MORBID OBESITY 8. CHRONIC DEPENDENT LEG EDEMA 9. CHRONIC KIDNEY DISEASE 10. RESTLESS LEG SYNDROME 11. DYSLIPIDEMIA 12. METABOLIC SYNDROME 13. HISTORY OF ATRIAL FIBRILLATION, PAROXYSMAL 14. HISTORY OF CHRONIC ANEMIA 15. EARLY DEMENTIA 16. GENERALIZED OSTEOARTHRITIS 17. STATUS POST ANKLE SURGERY 18. CARPAL TUNNEL SYNDROME, REPAIR 19. LASER EYE SURGERY 20. TIA, 2016 DISCHARGE INSTRUCTIONS: Transfer to [facility], ICU; Dr. Ann has accepted the patient. MEDICATIONS AT TIME OF TRANSFER: 1. Lantus 80 units Subcut at bedtime 2. Regular insulin per sliding scale protocol t.i.d. 3. Xopenex one neb q.6 4. Pulmicort twice a day nebs 5. Ativan 0.5 mg twice a day 6. Lasix IV 40 mg q.a.m. 7. Aricept 10 mg at bedtime 8. Cardizem 60 mg p.o. twice a day 9. 1 cc Decadron q.a.m. 10. Lipitor 20 at bedtime 11. Eliquis 2.5 mg twice a day 12. Norvasc discontinued as patient is on Cardizem 13. ProAir HFA four times a day p.r.n. 14. Allopurinol 100 mg p.o. daily 15. Remeron 30 mg at nighttime 16. Metoprolol 25 mg twice a day 17. Protonix 40 mg q.a.m. 18. Mirapex 1 mg p.o. t.i.d. 19. Ultram 50 mg q.8 for pain LABS: Hemoglobin 8.6, hematocrit 27, WBC 12,000, normal differential. The patient's usual hemoglobin is 9 with hematocrit of 30 the past couple of months. Creatinine 3.3, BUN 119. Today on admission it was 2.9 and 104 respectively. ABG this morning on 2L p02 63, pc02 70, pH 7.25 with c02 of 33 and oxygen saturation 87%. The patient was put on BIPAP 40% and p02 went up to 104 with pc02 of 61 with pH of 7.31 with 97% saturation. On admission the patient's p02 was 52, pc02 48 with normal pH with saturation of 89% on room air. NEW PRESCRIPTIONS: N/A DIET INSTRUCTIONS: ADA diet; low sodium ACTIVITY: Bedrest SMOKING: N/A DISEASE SPECIFIC EDUCATION: Transfer to [facility] COURSE: 82-year-old white female was brought to the office by family on 05/25/17. The patient had 2+ to 3+ pitting edema of legs and generalized swelling with weight gain of 17 lbs in the past 3 weeks. She was short of breath. Her oxygen saturation at that time was 90 to 92% on room air. She had decreased breath sounds with crepitations at the bases and 2+ pitting edema of both lower extremities with some swelling of upper extremities and abdominal wall. The patient has been on Bumex 1 mg twice a day with Zaroxolyn p.r.n. Creatinine from 1.8, BUN of 45 on 04/30/17 went up to creatinine of 2.9 with BUN 100. Aggressive diuretic therapy done at home by the family members because of swelling. The patient was put in the hospital and legs were elevated. She was given IV Lasix 40 mg. Bumex and Zaroxolyn were discontinued. She was given slow IV fluid 50 cc/hr for a couple of days. The patient's BUN and creatinine went up slowly to some extent along with deterioration in her respiratory status. At that point it was decided to transfer this patient for further care under md physician dermatologist and pulmonary physician. Hospitalist services at [facility] was called and they accepted the transfer. The patient's respiratory status has improved some with 40% BIPAP. She is oriented to time, place and person. Other problem is noncompliance, has voracious appetite. BMI is 52. Condition seems to be stable at the present time but prognosis in the longrun is poor. TIME SPENT: More than 60 minutes. VERITOD
--- NOTE | 2017-05-28 11:08 | PN ---
CODING FOR BILLIN05/25/17 LEVEL 5 05/26/17 INTERMEDIATE 05/27/17 INTERMEDIATE 05/28/17 DISCHARGE MTDD
--- NOTE | 2017-05-28 11:13 | PN ---
DATE OF SERVICE: 05/27/17 SUBJECTIVE: 82-year-old white female hospitalized with renal failure and respiratory failure. The patient's respiratory status has improved. She is feeling somewhat better. The leg edema and generalized edema is less than before. Her kidney functions are stable, abnormal for the past 48 hours. Continue to hydrate her slowly, watch for fluid overload which she doesn't seem to have with no symptoms of CHF. The patient has voracious appetite, advised to cut down on salt intake, advised to keep the legs up. Diuretic therapy had made her creatinine and BUN go up because of dependent refractory edema she has with massive obesity with BMI of 52. The patient advised to lose weight. Diet discussed with her. The patient was seen and examined with the nurse practitioner. TIME SPENT: More than 30 minutes. Plan and coordination of the patient's care discussed in the presence of nurse. JOSE
== END 2017-05-28 10:58 | disposition short-term general hospital (02) | DRG 682 ==
LOC: MEDSURG B 12:52
PROVIDERS: ADMIT Internal Medicine; ATTEND Internal Medicine
DX: N17.9 Acute kidney failure, unspecified (principal); J96.00 Acute respiratory failure, unspecified whether with hypoxia or hypercapnia; Z68.43 Body mass index [BMI] 50.0-59.9, adult; N18.9 Chronic kidney disease, unspecified; I50.9 Heart failure, unspecified; I48.0 Paroxysmal atrial fibrillation; E11.22 Type 2 diabetes mellitus with diabetic chronic kidney disease; E11.65 Type 2 diabetes mellitus with hyperglycemia; J44.9 Chronic obstructive pulmonary disease, unspecified; I25.10 Atherosclerotic heart disease of native coronary artery without angina pectoris; E66.01 Morbid (severe) obesity due to excess calories; D50.0 Iron deficiency anemia secondary to blood loss (chronic); E88.81 Metabolic syndrome and other insulin resistance; E78.5 Hyperlipidemia, unspecified; F03.90 Unspecified dementia, unspecified severity, without behavioral disturbance, psychotic disturbance, mood disturbance, and anxiety; G25.81 Restless legs syndrome; M15.9 Polyosteoarthritis, unspecified; Z79.01 Long term (current) use of anticoagulants; Z86.73 Personal history of transient ischemic attack (TIA), and cerebral infarction without residual deficits; Z91.11 Patient's noncompliance with dietary regimen
CPT/HCPCS: 36415; 80053; 81001; 82550; 82803; 82947; 82962; 83880; 84484; 85008; 85025; 87070; 93005; 93010; 94640; 94660; 97802

== ENCOUNTER 2017-05-28 10:52 | Outpatient (CLI) | END 2017-05-28 10:53 | disposition short-term general hospital (02) | LOC: AMBL 10:52 | PROVIDERS: ATTEND Internal Medicine | DX: N19 Unspecified kidney failure (principal); J96.90 Respiratory failure, unspecified, unspecified whether with hypoxia or hypercapnia; R60.0 Localized edema ==

== ENCOUNTER 2017-06-10 16:50 | Outpatient (CLI) | payer OTHER | END 2017-06-10 16:51 | disposition short-term general hospital (02) | LOC: AMBL 16:50 | PROVIDERS: ATTEND Emergency Medicine | DX: N19 Unspecified kidney failure (principal); R88.8 Abnormal findings in other body fluids and substances ==

== ENCOUNTER 2018-03-29 14:17 | Outpatient (CLI) ==
[2018-01-13 16:10] VITALS: BMI 44.1
== END 2018-03-29 14:18 | disposition home or self-care (01) ==
LOC: RHC-LAB 14:17 → FCC-LAB 14:18
PROVIDERS: ATTEND Family Medicine
DX: Z79.01 Long term (current) use of anticoagulants (principal)
CPT/HCPCS: 36415; 85610

== ENCOUNTER 2018-04-05 16:05 | Outpatient (CLI) ==
[2018-01-13 16:10] VITALS: BMI 44.1
--- NOTE | 2018-04-05 16:26 | DI ---
Exam: Two views of the chest. Comparison: 01/13/2018. Reason for exam: Cough. FINDINGS: Image interpretation is limited by patient's body habitus. No obvious pleural effusion, o r focal consolidation. The cardiac silhouette is prominent in size. Image interpretation is limited by low lung volumes. Impression: 1. No obvious air space consolidation, pleural effusion or pneumothorax. 2. Evaluation is limited by patient's body habitus, low lung volume, and positioning
== END 2018-04-05 16:06 | disposition home or self-care (01) ==
LOC: RAD 16:05
PROVIDERS: ATTEND Nurse Practitioner Family
DX: R05 Cough (principal)

== ENCOUNTER 2018-04-27 13:44 | Outpatient (CLI) | payer OTHER ==
[2018-01-13 16:10] VITALS: BMI 44.1
== END 2018-04-27 13:45 | disposition home or self-care (01) ==
LOC: NONPT 13:44
PROVIDERS: ATTEND Nurse Practitioner Family
DX: Z51.81 Encounter for therapeutic drug level monitoring (principal); Z79.01 Long term (current) use of anticoagulants
CPT/HCPCS: 85610

== ENCOUNTER 2018-04-28 13:41 | Outpatient (CLI) | payer OTHER ==
[2018-01-13 16:10] VITALS: BMI 44.1
== END 2018-04-28 13:42 | disposition home or self-care (01) ==
LOC: LAB 13:41
PROVIDERS: ATTEND Nurse Practitioner Family
DX: Z51.81 Encounter for therapeutic drug level monitoring (principal); Z79.01 Long term (current) use of anticoagulants
CPT/HCPCS: 36415; 85610

== ENCOUNTER 2018-05-02 09:48 | Outpatient (CLI) | payer OTHER ==
[2018-01-13 16:10] VITALS: BMI 44.1
== END 2018-05-02 09:49 | disposition home or self-care (01) ==
LOC: LAB 09:48
PROVIDERS: ATTEND Nurse Practitioner Family
DX: E11.9 Type 2 diabetes mellitus without complications (principal); E55.9 Vitamin D deficiency, unspecified; Z51.81 Encounter for therapeutic drug level monitoring; Z79.01 Long term (current) use of anticoagulants
CPT/HCPCS: 36415; 80053; 82306; 83036; 85025; 85610

== ENCOUNTER 2018-05-06 10:05 | Outpatient (CLI) ==
[2018-01-13 16:10] VITALS: BMI 44.1
== END 2018-05-06 10:06 | disposition home or self-care (01) ==
LOC: LAB 10:05
PROVIDERS: ATTEND Nurse Practitioner Family
DX: Z51.81 Encounter for therapeutic drug level monitoring (principal); Z79.01 Long term (current) use of anticoagulants
CPT/HCPCS: 36415; 85610

== ENCOUNTER 2018-05-13 09:57 | Outpatient (CLI) ==
[2018-01-13 16:10] VITALS: BMI 44.1
== END 2018-05-13 09:58 | disposition home or self-care (01) ==
LOC: LAB 09:57
PROVIDERS: ATTEND Nurse Practitioner Family
DX: Z51.81 Encounter for therapeutic drug level monitoring (principal); Z79.01 Long term (current) use of anticoagulants
CPT/HCPCS: 36415; 85610

== ENCOUNTER 2018-05-20 09:50 | Outpatient (CLI) ==
[2018-01-13 16:10] VITALS: BMI 44.1
== END 2018-05-20 09:51 | disposition home or self-care (01) ==
LOC: LAB 09:50
PROVIDERS: ATTEND Nurse Practitioner Family
DX: Z51.81 Encounter for therapeutic drug level monitoring (principal); Z79.01 Long term (current) use of anticoagulants
CPT/HCPCS: 36415; 85610

== ENCOUNTER 2018-05-27 09:40 | Outpatient (CLI) ==
[2018-01-13 16:10] VITALS: BMI 44.1
== END 2018-05-27 09:41 | disposition home or self-care (01) ==
LOC: LAB 09:40
PROVIDERS: ATTEND Nurse Practitioner Family
DX: Z51.81 Encounter for therapeutic drug level monitoring (principal); Z79.01 Long term (current) use of anticoagulants
CPT/HCPCS: 36415; 85610

== ENCOUNTER 2018-06-03 09:46 | Outpatient (CLI) ==
[2018-01-13 16:10] VITALS: BMI 44.1
== END 2018-06-03 09:47 | disposition home or self-care (01) ==
LOC: LAB 09:46
PROVIDERS: ATTEND Nurse Practitioner Family
DX: Z51.81 Encounter for therapeutic drug level monitoring (principal); Z79.01 Long term (current) use of anticoagulants
CPT/HCPCS: 36415; 85610

== ENCOUNTER 2018-06-10 09:45 | Outpatient (CLI) | payer OTHER ==
[2018-01-13 16:10] VITALS: BMI 44.1
== END 2018-06-10 09:46 | disposition home or self-care (01) ==
LOC: LAB 09:45
PROVIDERS: ATTEND Nurse Practitioner Family
DX: Z51.81 Encounter for therapeutic drug level monitoring (principal); Z79.01 Long term (current) use of anticoagulants
CPT/HCPCS: 36415; 85610

== ENCOUNTER 2018-06-17 09:57 | Outpatient (CLI) ==
[2018-01-13 16:10] VITALS: BMI 44.1
== END 2018-06-17 09:58 | disposition home or self-care (01) ==
LOC: LAB 09:57
PROVIDERS: ATTEND Nurse Practitioner Family
DX: Z51.81 Encounter for therapeutic drug level monitoring (principal); Z79.01 Long term (current) use of anticoagulants
CPT/HCPCS: 36415; 85610

== ENCOUNTER 2018-10-04 12:37 | Outpatient (CLI) ==
[2018-01-13 16:10] VITALS: BMI 44.1
== END 2018-10-04 12:38 | disposition home or self-care (01) ==
LOC: LAB 12:37
PROVIDERS: ATTEND Nurse Practitioner Family
DX: Z51.81 Encounter for therapeutic drug level monitoring (principal); Z79.01 Long term (current) use of anticoagulants
CPT/HCPCS: 36415; 85610